=== PATIENT | male | born 1935 | race Caucasian/White ===

== ENCOUNTER 2017-03-01 17:50 | Inpatient (IN) | payer MEDICARE, BC ==
[2017-03-01] MEDS ORDERED: methylPREDNISolone SOD SUCCI 125 MG/2 ML VIAL IV STA (18:03)
[2017-03-01] MEDS ORDERED: ALBUTEROL NEBULIZED 2.5 MG/3 ML INHALATION STA (18:03)
[2017-03-01] MEDS ORDERED: IPRATROPIUM 0.5 MG/2.5 ML NEBU INHALATION STA (18:03)
--- NOTE | 2017-03-01 18:08 | ED ---
General Adult HPI - General Chief complaint: Shortness of Breath Stated complaint: chest pain, [place], has pacemaker Time Seen by Provider: 03/01/17 17:56 Source: patient, family, RN notes reviewed, old records reviewed Mode of arrival: wheelchair Limitations: no limitations - History of Present Illness Initial comments: 81-year-old male presents for evaluation of difficulty breathing. Patient states this began earlier in the day. He has had a cough which is productive of white sputum. Denies fever. Patient had an episode of central chest pain and tightness. This is resolved at this time. He has persistent coughing and dyspnea. Patient does have history of tobacco use, states he quit about 29 years ago. He has diagnosis of COPD, and was recently treated for pneumonia. Patient was admitted at an outside hospital for treatment of COPD and pneumonia approximately 2 weeks ago. - Related Data Home Medications Medication Instructions Recorded Confirmed Albuterol Nebulized [Ventolin 2.5 mg INHALATION RT-QID PRN 03/01/17 03/01/17 Nebulized] Albuterol Sulfate [Proair Hfa] 2 puff INHALATION RT-Q4H PRN 03/01/17 03/01/17 Aspirin EC [Ecotrin] 325 mg PO W/SUPPER 03/01/17 03/01/17 Dorzolamide HCl [Trusopt 2%] 1 drop BOTH EYES BID 03/01/17 03/01/17 Labetalol [Trandate] 50 mg PO DAILY@1200 03/01/17 03/01/17 Labetalol [Trandate] 100 mg PO QAM 03/01/17 03/01/17 Latanoprost Ophth [Xalatan 0.005%] 1 drop BOTH EYES HS 03/01/17 03/01/17 Losartan [Cozaar] 50 mg PO DAILY 03/01/17 03/01/17 Multivitamins, Thera [Multivitamin 1 tab PO DAILY 03/01/17 03/01/17 (formulary)] Pravastatin Sodium 80 mg PO TUWETH 03/01/17 03/01/17 Vit C/E/Zn/Coppr/Lutein/Zeaxan 1 cap PO BID 03/01/17 03/01/17 [Preservision Areds 2 Softgel] amLODIPine [Norvasc] 5 mg PO BID 03/01/17 03/01/17 Allergies Allergy/AdvReac Type Severity Reaction Status Date / Time ezetimibe [From Vytorin] Allergy Swelling Verified 03/01/17 18:52 lisinopril Allergy Swelling Verified 03/01/17 18:52 simvastatin [From Vytorin] Allergy Swelling Verified 03/01/17 18:52 Review of Systems ROS Statement: Those systems with pertinent positive or pertinent negative responses have been documented in the HPI. ROS Other: All systems not noted in ROS Statement are negative. Past Medical History Past Medical History: Asthma, Hyperlipidemia, Hypertension History of Any Multi-Drug Resistant Organisms: None Reported Past Surgical History: Pacemaker Additional Past Surgical History / Comment(s): lobectomy on right side, prostate removed Past Psychological History: No Psychological Hx Reported Smoking Status: Former smoker Past Alcohol Use History: None Reported Past Drug Use History: None Reported General Exam Limitations: no limitations General appearance: alert, in distress Head exam: Present: atraumatic, normocephalic Eye exam: Present: normal appearance, PERRL. Absent: scleral icterus, conjunctival injection ENT exam: Present: mucous membranes dry Respiratory exam: Present: respiratory distress, wheezes, accessory muscle use, decreased breath sounds, prolonged expiratory Cardiovascular Exam: Present: normal rhythm, tachycardia GI/Abdominal exam: Present: soft. Absent: distended, tenderness Extremities exam: Present: normal capillary refill. Absent: pedal edema Neurological exam: Present: alert, oriented X3 Psychiatric exam: Present: normal affect, normal mood Skin exam: Present: warm, dry, intact. Absent: cyanosis, diaphoretic Course Vital Signs 03/01/17 03/01/17 03/01/17 17:59 18:06 18:13 Temperature 98.2 F Pulse Rate 107 H 96 Respiratory 30 H 30 H 30 H Rate Blood Pressure 164/82 O2 Sat by Pulse 94 L Oximetry 03/01/17 03/01/17 03/01/17 18:55 19:04 19:58 Temperature 98.3 F Pulse Rate 95 98 92 Respiratory 25 H 18 20 Rate Blood Pressure 158/84 156/82 O2 Sat by Pulse 98 97 Oximetry - Reevaluation(s) Reevaluation #1: 03/01/17 20:29 Patient's respiratory status does improve with albuterol, Atrovent, and steroids. EKG Findings - EKG Comments: EKG Findings:: EKG shows electronic ventricular paced rhythm, ventricular rate 99, LA interval 232, QRS 168, QTC [address] segment elevation in V4, 5 and 6, this does not meet [place] criteria. Medical Decision Making - Medical Decision Making 81-year-old male presenting with cough and dyspnea. Auscultation does reveal decreased breath sounds, Very wheeze, there is retractions on examination. White blood cell count is 6.0 which is normal, hemoglobin is 13.5 which is stable. D-dimer is elevated at 0.67. PCO2 is elevated at 59 consistent with hypercarbic respiratory failure. Troponin is negative. Lactic acid is normal at 0.8. Chest x-ray shows no focal pneumonia. 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 EKG shows a ventricular paced rhythm. Patient has no chest pain wall emergency department. Initial troponin is negative. Repeat enzymes will be obtained given the history of chest pain earlier in the day. Patient's symptoms do somewhat improved with albuterol, Atrovent, and steroids. Patient will be admitted for further treatment of COPD exacerbation with hypercarbic respiratory failure - Lab Data Result diagrams: 03/01/17 18:05 03/01/17 18:05 Lab Results 03/01/17 03/01/17 03/01/17 Range/Units 18:05 18:05 18:05 WBC 6.1 (3.8-10.6) k/uL RBC 4.55 (4.30-5.90) m/uL Hgb 13.5 (13.0-17.5) gm/dL Hct 43.7 (39.0-53.0) % MCV 96.1 (80.0-100.0) fL MCH 29.7 (25.0-35.0) pg MCHC 30.9 L (31.0-37.0) g/dL RDW 15.2 (11.5-15.5) % Plt Count 332 (150-450) k/uL Neutrophils % 41 % Lymphocytes % 31 % Monocytes % 9 % Eosinophils % 14 % Basophils % 1 % Neutrophils # 2.5 (1.3-7.7) k/uL Lymphocytes # 1.9 (1.0-4.8) k/uL Monocytes # 0.6 (0-1.0) k/uL Eosinophils # 0.9 H (0-0.7) k/uL Basophils # 0.1 (0-0.2) k/uL PT (9.0-12.0) sec INR (<1.2) APTT (22.0-30.0) sec D-Dimer (<0.60) mg/L FEU VBG pH 7.31 (7.31-7.41) VBG pCO2 59 H (37-51) mmHg VBG HCO3 29 H (24-28) mmol/L Sodium (137-145) mmol/L Potassium (3.5-5.1) mmol/L Chloride (98-107) mmol/L Carbon Dioxide (22-30) mmol/L Anion Gap mmol/L BUN (9-20) mg/dL Creatinine (0.66-1.25) mg/dL Est GFR (MDRD) Af Amer (>60 ml/min/1.73 sqM) Est GFR (MDRD) Non-Af (>60 ml/min/1.73 sqM) Glucose (74-99) mg/dL Plasma Lactic Acid Gary (0.7-2.0) mmol/L Calcium (8.4-10.2) mg/dL Magnesium (1.6-2.3) mg/dL Total Bilirubin (0.2-1.3) mg/dL AST (17-59) U/L ALT (21-72) U/L Alkaline Phosphatase (38-126) U/L Total Creatine Kinase 78 (55-170) U/L CK-MB (CK-2) 4.1 H* (0.0-2.4) ng/mL CK-MB (CK-2) Rel Index 5.3 Troponin I <0.012 (0.000-0.034) ng/mL NT-Pro-B Natriuret Pep pg/mL Total Protein (6.3-8.2) g/dL Albumin (3.5-5.0) g/dL 03/01/17 03/01/17 03/01/17 Range/Units 18:05 18:05 18:05 WBC (3.8-10.6) k/uL RBC (4.30-5.90) m/uL Hgb (13.0-17.5) gm/dL Hct (39.0-53.0) % MCV (80.0-100.0) fL MCH (25.0-35.0) pg MCHC (31.0-37.0) g/dL RDW (11.5-15.5) % Plt Count (150-450) k/uL Neutrophils % % Lymphocytes % % Monocytes % % Eosinophils % % Basophils % % Neutrophils # (1.3-7.7) k/uL Lymphocytes # (1.0-4.8) k/uL Monocytes # (0-1.0) k/uL Eosinophils # (0-0.7) k/uL Basophils # (0-0.2) k/uL PT 10.2 (9.0-12.0) sec INR 1.0 (<1.2) APTT 23.4 (22.0-30.0) sec D-Dimer 0.67 H (<0.60) mg/L FEU VBG pH (7.31-7.41) VBG pCO2 (37-51) mmHg VBG HCO3 (24-28) mmol/L Sodium 139 (137-145) mmol/L Potassium 4.4 (3.5-5.1) mmol/L Chloride 103 (98-107) mmol/L Carbon Dioxide 27 (22-30) mmol/L Anion Gap 9 mmol/L BUN 24 H (9-20) mg/dL Creatinine 0.90 (0.66-1.25) mg/dL Est GFR (MDRD) Af Amer >60 (>60 ml/min/1.73 sqM) Est GFR (MDRD) Non-Af >60 (>60 ml/min/1.73 sqM) Glucose 91 (74-99) mg/dL Plasma Lactic Acid Gary (0.7-2.0) mmol/L Calcium 9.4 (8.4-10.2) mg/dL Magnesium 2.1 (1.6-2.3) mg/dL Total Bilirubin 0.3 (0.2-1.3) mg/dL AST 24 (17-59) U/L ALT 41 (21-72) U/L Alkaline Phosphatase 95 (38-126) U/L Total Creatine Kinase (55-170) U/L CK-MB (CK-2) (0.0-2.4) ng/mL CK-MB (CK-2) Rel Index Troponin I (0.000-0.034) ng/mL NT-Pro-B Natriuret Pep 324 pg/mL Total Protein 6.5 (6.3-8.2) g/dL Albumin 3.8 (3.5-5.0) g/dL 03/01/17 Range/Units 18:05 WBC (3.8-10.6) k/uL RBC (4.30-5.90) m/uL Hgb (13.0-17.5) gm/dL Hct (39.0-53.0) % MCV (80.0-100.0) fL MCH (25.0-35.0) pg MCHC (31.0-37.0) g/dL RDW (11.5-15.5) % Plt Count (150-450) k/uL Neutrophils % % Lymphocytes % % Monocytes % % Eosinophils % % Basophils % % Neutrophils # (1.3-7.7) k/uL Lymphocytes # (1.0-4.8) k/uL Monocytes # (0-1.0) k/uL Eosinophils # (0-0.7) k/uL Basophils # (0-0.2) k/uL PT (9.0-12.0) sec INR (<1.2) APTT (22.0-30.0) sec D-Dimer (<0.60) mg/L FEU VBG pH (7.31-7.41) VBG pCO2 (37-51) mmHg VBG HCO3 (24-28) mmol/L Sodium (137-145) mmol/L Potassium (3.5-5.1) mmol/L Chloride (98-107) mmol/L Carbon Dioxide (22-30) mmol/L Anion Gap mmol/L BUN (9-20) mg/dL Creatinine (0.66-1.25) mg/dL Est GFR (MDRD) Af Amer (>60 ml/min/1.73 sqM) Est GFR (MDRD) Non-Af (>60 ml/min/1.73 sqM) Glucose (74-99) mg/dL Plasma Lactic Acid Gary 0.8 (0.7-2.0) mmol/L Calcium (8.4-10.2) mg/dL Magnesium (1.6-2.3) mg/dL Total Bilirubin (0.2-1.3) mg/dL AST (17-59) U/L ALT (21-72) U/L Alkaline Phosphatase (38-126) U/L Total Creatine Kinase (55-170) U/L CK-MB (CK-2) (0.0-2.4) ng/mL CK-MB (CK-2) Rel Index Troponin I (0.000-0.034) ng/mL NT-Pro-B Natriuret Pep pg/mL Total Protein (6.3-8.2) g/dL Albumin (3.5-5.0) g/dL Disposition Clinical Impression: Acute exacerbation of chronic obstructive airways disease Disposition: ADMITTED IP TO THIS HOSP Condition: Stable Referrals: Nikhil Alberts MD [Primary Care Provider] - 1-2 days Decision to Admit Reason: Admit from EC Decision Date: 03/01/17 Decision Time: 20:32
[2017-03-01 18:29] LABS: VBG PH 7.31 (7.31-7.41)
[2017-03-01 18:39] LABS: ALT 41 U/L (21-72); AST 24 U/L (17-59); Alkaline Phosphatase 95 U/L (38-126); Anion Gap 9 mmol/L; Blood Urea Nitrogen 24 mg/dL (9-20); Calcium 9.4 mg/dL (8.4-10.2); Carbon Dioxide 27 mmol/L (22-30); Chloride 103 mmol/L (98-107); Glucose 91 mg/dL (74-99); Magnesium 2.1 mg/dL (1.6-2.3); Non-African American GFR(MDRD) >60 (>60 ml/min/1.73 sqM); Potassium 4.4 mmol/L (3.5-5.1); Sodium 139 mmol/L (137-145); Total Bilirubin 0.3 mg/dL (0.2-1.3); Total Protein 6.5 g/dL (6.3-8.2)
[2017-03-01 18:45] LABS: Partial Thromboplastin Time 23.4 sec (22.0-30.0); Prothrombin Time 10.2 sec (9.0-12.0)
[2017-03-01 18:47] LABS: Basophils # (A) 0.1 k/uL (0-0.2); Basophils % (A) 1 %; CH 30.5; CHCM 31.9; Creatine Kinase 78 U/L (55-170); Eosinophils # (A) 0.9 k/uL (0-0.7); Eosinophils % (A) 14 %; HCT 43.7 % (39.0-53.0); HDW 2.36; HGB 13.5 gm/dL (13.0-17.5); Luc # (Auto) 0.25; Luc % (Auto) 4; Lymphocytes # (A) 1.9 k/uL (1.0-4.8); Lymphocytes % (A) 31 %; MCH 29.7 pg (25.0-35.0); MCHC 30.9 g/dL (31.0-37.0); MCV 96.1 fL (80.0-100.0); Mean Platelet Volume 6.6; Monocytes # (A) 0.6 k/uL (0-1.0); Monocytes % (A) 9 %; Neutrophils # (A) 2.5 k/uL (1.3-7.7); Neutrophils % (A) 41 %; RBC 4.55 m/uL (4.30-5.90); RDW 15.2 % (11.5-15.5); WBC 6.1 k/uL (3.8-10.6); WBC (Perox) 6.32
[2017-03-01 19:00] LABS: Troponin I <0.012 ng/mL (0.000-0.034)
[2017-03-01 19:01] LABS: Creatine Kinase MB 4.1 ng/mL (0.0-2.4)
[2017-03-01] MEDS ORDERED: RX INFO: IV CONTRAST WAS GIVEN 1 EACH MISC MISCELLANE PRN (19:15)
--- NOTE | 2017-03-01 19:16 | XR ---
EXAMINATION TYPE: XR chest 2V DATE OF EXAM: 03/01/2017 COMPARISON: 02/21/2017 HISTORY: Chest pain TECHNIQUE: Frontal and lateral views of the chest are obtained. FINDINGS: There is blunting of right costophrenic angle. Heart size is normal. Thoracic aorta is ath eromatous. There is left axillary pacemaker with the lead tips in the right ventricle. There are ches t leads. IMPRESSION: There is pleural reaction and fluid at the right lung base without change compared to la st exam. No heart failure.
--- NOTE | 2017-03-01 20:05 | CT ---
EXAMINATION TYPE: CT angio chest DATE OF EXAM: 03/01/2017 7:52 PM COMPARISON: NONE HISTORY: Shortness of breath and chest pressure. CT DLP: 286.70 mGycm Automated exposure control for dose reduction was used. CONTRAST: CTA scan of the thorax is performed with IV Contrast, patient injected with 78 mL of Omnipaque 350, p ulmonary embolism protocol. There are 3-D post processed images.. FINDINGS: There is coarse interstitial density in the mid and lower lung calle consistent with pulmonary fibro sis. Thoracic aorta is atheromatous. 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 There is no sign of dissection. There are large central pulmonary arteries. I see no filling defects. The bony thorax appears intact. There is spurring of the thoracic spine. There is mild pleural thickening at the right lung base. There is some pleural thickening at the righ t lung apex. IMPRESSION: NO EVIDENCE OF PULMONARY EMBOLISM. RIGHT-SIDED PLEURAL SCARRING. PULMONARY INTERSTITIAL FIBROSIS. PUL MONARY FIBROTIC CHANGES AND PLEURAL THICKENING ARE NEW COMPARED TO OLD CT SCAN OF 01/22/2012. AORTIC AN EURYSM IS INCREASED SLIGHTLY COMPARED TO OLD EXAM.
[2017-03-01] MEDS ORDERED: ACETAMINOPHEN TAB 325 MG TAB PO PRN (20:28)
[2017-03-01 21:24] VITALS: BMI 22.5
[2017-03-01] MEDS: IPRATROPIUM-ALBUTEROL 3 ML NEB INHALATION PRN (22:57)
[2017-03-01] MEDS: amLODIPine 5 MG TAB PO SCH (23:03)
[2017-03-02 00:39] LABS: Creatine Kinase 74 U/L (55-170)
[2017-03-02 00:53] LABS: Troponin I <0.012 ng/mL (0.000-0.034)
[2017-03-02 00:59] LABS: Creatine Kinase MB 3.4 ng/mL (0.0-2.4)
[2017-03-02] MEDS: IPRATROPIUM-ALBUTEROL 3 ML NEB INHALATION PRN ×5 (02:59→20:36)
[2017-03-02 06:54] LABS: Basophils % (A) 0 %; CH 30.5; CHCM 31.8; Eosinophils % (A) 0 %; HCT 43.3 % (39.0-53.0); HDW 2.34; HGB 13.2 gm/dL (13.0-17.5); Luc # (Auto) 0.02; Luc % (Auto) 1; Lymphocytes # (A) 0.9 k/uL (1.0-4.8); Lymphocytes % (A) 19 %; MCH 29.5 pg (25.0-35.0); MCHC 30.6 g/dL (31.0-37.0); MCV 96.4 fL (80.0-100.0); Mean Platelet Volume 6.8; Monocytes # (A) 0.1 k/uL (0-1.0); Monocytes % (A) 1 %; Neutrophils # (A) 3.5 k/uL (1.3-7.7); Neutrophils % (A) 79 %; RBC 4.49 m/uL (4.30-5.90); RDW 15.1 % (11.5-15.5); WBC 4.5 k/uL (3.8-10.6); WBC (Perox) 4.59
[2017-03-02 07:09] LABS: ALT 33 U/L (21-72); AST 22 U/L (17-59); Alkaline Phosphatase 73 U/L (38-126); Anion Gap 10 mmol/L; Blood Urea Nitrogen 20 mg/dL (9-20); Carbon Dioxide 25 mmol/L (22-30); Chloride 100 mmol/L (98-107); Glucose 130 mg/dL (74-99); Non-African American GFR(MDRD) >60 (>60 ml/min/1.73 sqM); Potassium 4.2 mmol/L (3.5-5.1); Sodium 135 mmol/L (137-145); Total Bilirubin 0.4 mg/dL (0.2-1.3); Total Protein 6.2 g/dL (6.3-8.2)
[2017-03-02 07:19] LABS: Creatine Kinase 75 U/L (55-170)
[2017-03-02 07:32] LABS: Troponin I <0.012 ng/mL (0.000-0.034)
[2017-03-02 07:38] LABS: Creatine Kinase MB 3.8 ng/mL (0.0-2.4)
[2017-03-02] MEDS: amLODIPine 5 MG TAB PO SCH ×2 (08:53→21:44)
[2017-03-02] MEDS: LOSARTAN 50 MG TAB PO SCH (08:53)
[2017-03-02] MEDS ORDERED: LEVOFLOXACIN 500 MG TAB PO SCH (09:00)
[2017-03-02] MEDS: LABETALOL 100 MG TAB PO SCH (11:30)
[2017-03-02] MEDS: predniSONE 20 MG TAB PO SCH (11:30)
[2017-03-02] MEDS ORDERED: LABETALOL 100 MG TAB PO SCH (12:00)
--- NOTE | 2017-03-02 13:47 | P.HPIM ---
History of Present Illness 81-year-old pleasant gentleman came in with complaints of chest pressure-like sensation improved with breathing treatments and constant started when he was watching TV patient I was comparing of wheezing patient has history of asthma presently in acute exacerbation is wheezing improved patient is on systemic steroids at this point of time with inhalational treatments. Patient's chest pain completely resolved troponins are negative EKG showed completely pacer rhythm. Patient used to smoke 30 years ago patient does not have any pneumonia on the chest x-ray. Antibiotics are being switched to doxycycline. Patient denied any fever, chills, nausea, vomiting patient was complaining of whitish sputum barely able to bring up. Review of Systems REVIEW OF SYSTEMS: CONSTITUTIONAL: No fever, no malaise, no fatigue. HEENT: No recent visual problems or hearing problems. Denied any sore throat. CARDIOVASCULAR: No chest pain, orthopnea, PND, no palpitations, no syncope. PULMONARY: as mentioned in HPI GASTROINTESTINAL: No diarrhea, no nausea, no vomiting, no abdominal pain. Normoactive bowel sounds. NEUROLOGICAL: No headaches, no weakness, no numbness. HEMATOLOGICAL: Denies any bleeding or petechiae. GENITOURINARY: Denies any burning micturition, frequency, or urgency. MUSCULOSKELETAL/RHEUMATOLOGICAL: Denies any joint pain, swelling, or any muscle pain. ENDOCRINE: Denies any polyuria or polydipsia. The rest of the 14-point review of systems is negative. Past Medical History Past Medical History: Asthma, COPD, Hyperlipidemia, Hypertension, Pneumonia History of Any Multi-Drug Resistant Organisms: None Reported Past Surgical History: Pacemaker Additional Past Surgical History / Comment(s): lobectomy on right side, prostate removed Past Anesthesia/Blood Transfusion Reactions: No Reported Reaction Type of Cardiac Device: Permanent Pacemaker Device Placement Date:: Jul 18 2011 Past Psychological History: No Psychological Hx Reported Smoking Status: Former smoker Past Alcohol Use History: None Reported Past Drug Use History: None Reported Medications and Allergies Home Medications Medication Instructions Recorded Confirmed Type Albuterol Nebulized [Ventolin 2.5 mg INHALATION RT-QID PRN 03/01/17 03/01/17 History Nebulized] Albuterol Sulfate [Proair Hfa] 2 puff INHALATION RT-Q4H PRN 03/01/17 03/01/17 History Aspirin EC [Ecotrin] 325 mg PO W/SUPPER 03/01/17 03/01/17 History Dorzolamide HCl [Trusopt 2%] 1 drop BOTH EYES BID 03/01/17 03/01/17 History Labetalol [Trandate] 50 mg PO DAILY@1200 03/01/17 03/01/17 History Labetalol [Trandate] 100 mg PO QAM 03/01/17 03/01/17 History Latanoprost Ophth [Xalatan 0.005%] 1 drop BOTH EYES HS 03/01/17 03/01/17 History Losartan [Cozaar] 50 mg PO DAILY 03/01/17 03/01/17 History Multivitamins, Thera [Multivitamin 1 tab PO DAILY 03/01/17 03/01/17 History (formulary)] Pravastatin Sodium 80 mg PO 03/01/17 03/01/17 History Vit C/E/Zn/Coppr/Lutein/Zeaxan 1 cap PO BID 03/01/17 03/01/17 History [Preservision Areds 2 Softgel] amLODIPine [Norvasc] 5 mg PO BID 03/01/17 03/01/17 History Allergies Allergy/AdvReac Type Severity Reaction Status Date / Time ezetimibe [From Vytorin] Allergy Swelling Verified 03/01/17 18:52 lisinopril Allergy Swelling Verified 03/01/17 18:52 simvastatin [From Vytorin] Allergy Swelling Verified 03/01/17 18:52 Physical Exam Vitals: Vital Signs Temp Pulse Pulse Resp BP BP Pulse Ox 03/02/17 12:09 112 H 03/02/17 11:48 100 03/02/17 11:29 98 18 115/60 97 03/02/17 08:40 100 03/02/17 08:29 96 03/02/17 08:00 97.1 F L 104 H 18 118/69 97 03/02/17 04:00 97.9 F 104 H 20 138/69 94 L 03/02/17 03:08 108 H 03/02/17 03:00 102 H 03/02/17 00:00 96 20 132/69 96 03/01/17 23:06 96 03/01/17 22:59 96 03/01/17 20:54 98.4 F 92 20 145/84 95 03/01/17 20:50 98.3 F 94 20 158/81 96 03/01/17 19:58 98.3 F 92 20 156/82 97 03/01/17 19:04 98 18 158/84 98 03/01/17 18:55 95 25 H 03/01/17 18:13 96 30 H 03/01/17 18:06 30 H 03/01/17 17:59 98.2 F 107 H 30 H 164/82 94 L Intake and Output 03/01/17 03/02/17 03/02/17 22:59 06:59 14:59 Intake Total 100 100 240 Output Total 700 400 Balance -600 -300 240 Intake: Oral 100 100 240 Output: Urine 700 400 Other: Voiding Method Urinal Urinal # Voids 1 1 # Bowel Movements 1 Weight 71.3 kg PHYSICAL EXAMINATION: GENERAL: The patient is alert and oriented x3, not in any acute distress. Well developed, well nourished. HEENT: Pupils are round and equally reacting to light. EOMI. No scleral icterus. No conjunctival pallor. Normocephalic, atraumatic. No pharyngeal erythema. No thyromegaly. CARDIOVASCULAR: S1 and S2 present. No murmurs, rubs, or gallops. PULMONARY: decreased air entry into bilateral lung calle, no crackles were appreciated ABDOMEN: Soft, nontender, nondistended, normoactive bowel sounds. No palpable organomegaly. MUSCULOSKELETAL: No joint swelling or deformity. EXTREMITIES: No cyanosis, clubbing, or pedal edema. NEUROLOGICAL: Gross neurological examination did not reveal any focal deficits. SKIN: No rashes. Results CBC & Chem 7: 03/02/17 06:25 03/02/17 06:25 Labs: Abnormal Lab Results - Last 24 Hours (Table) 03/01/17 03/01/17 03/01/17 Range/Units 18:05 18:05 18:05 MCHC 30.9 L (31.0-37.0) g/dL Lymphocytes # (1.0-4.8) k/uL Eosinophils # 0.9 H (0-0.7) k/uL D-Dimer (<0.60) mg/L FEU VBG pCO2 59 H (37-51) mmHg VBG HCO3 29 H (24-28) mmol/L Sodium (137-145) mmol/L BUN (9-20) mg/dL Glucose (74-99) mg/dL CK-MB (CK-2) 4.1 H* (0.0-2.4) ng/mL Total Protein (6.3-8.2) g/dL 03/01/17 03/01/17 03/02/17 Range/Units 18:05 18:05 00:06 MCHC (31.0-37.0) g/dL Lymphocytes # (1.0-4.8) k/uL Eosinophils # (0-0.7) k/uL D-Dimer 0.67 H (<0.60) mg/L FEU VBG pCO2 (37-51) mmHg VBG HCO3 (24-28) mmol/L Sodium (137-145) mmol/L BUN 24 H (9-20) mg/dL Glucose (74-99) mg/dL CK-MB (CK-2) 3.4 H* (0.0-2.4) ng/mL Total Protein (6.3-8.2) g/dL 03/02/17 03/02/17 03/02/17 Range/Units 06:25 06:25 06:25 MCHC 30.6 L (31.0-37.0) g/dL Lymphocytes # 0.9 L (1.0-4.8) k/uL Eosinophils # (0-0.7) k/uL D-Dimer (<0.60) mg/L FEU VBG pCO2 (37-51) mmHg VBG HCO3 (24-28) mmol/L Sodium 135 L (137-145) mmol/L BUN (9-20) mg/dL Glucose 130 H (74-99) mg/dL CK-MB (CK-2) 3.8 H* (0.0-2.4) ng/mL Total Protein 6.2 L (6.3-8.2) g/dL Thrombosis Risk Factor Assmnt - Choose All That Apply Any of the Below Risk Factors Present?: Yes Each Factor Represents 1 point: Abnormal pulmonary function (COPD), Serious lung disease incl. pneumonia (< 1month) Other Risk Factors: Yes Each Risk Factor Represents 3 Points: Age 75 years or older Other congenital or acquired thrombophilia - If yes, enter type in comment: No Thrombosis Risk Factor Assessment Total Risk Factor Score: 5 Thrombosis Risk Factor Assessment Level: High Risk Assessment and Plan Plan: #1 acute hypoxic respiratory failure secondary to asthma exacerbation patient is on systemic steroids inhalational treatments which will be continued patient has ALLERGIC bronchitis. #2 rule out pulmonary embolism. #3 chest pain and chest pressure like sensation which resolved secondary to bronchoconstriction and asthma hyperlipidemia Hypertension For above-mentioned chronic medical problems patient will be continued on appropriate home medications
[2017-03-02] MEDS: guaiFENesin-DM 100-10MG/5ML 10 ML CUP PO PRN (17:07)
[2017-03-02] MEDS: BENZOCAINE/MENTHOL LOZENG 1 EACH LOZENGE MUCOUS MEM PRN (17:07)
[2017-03-02] MEDS ORDERED: ASPIRIN 325 MG TAB PO SCH (17:30)
[2017-03-02] MEDS: DOXYCYCLINE 50 MG CAP PO SCH (21:44)
[2017-03-03] MEDS: guaiFENesin-DM 100-10MG/5ML 10 ML CUP PO PRN ×2 (00:08→10:59)
[2017-03-03] MEDS: BENZOCAINE/MENTHOL LOZENG 1 EACH LOZENGE MUCOUS MEM PRN ×2 (00:08→10:59)
[2017-03-03] MEDS: IPRATROPIUM-ALBUTEROL 3 ML NEB INHALATION PRN ×3 (00:19→08:23)
[2017-03-03 07:47] VITALS: BP 136/77; RESP 20; TEMP 96.9
[2017-03-03] MEDS: amLODIPine 5 MG TAB PO SCH (08:00)
[2017-03-03] MEDS: LOSARTAN 50 MG TAB PO SCH (08:01)
[2017-03-03] MEDS: DOXYCYCLINE 50 MG CAP PO SCH (08:01)
[2017-03-03] MEDS: predniSONE 20 MG TAB PO SCH (08:01)
[2017-03-03] MEDS: LABETALOL 100 MG TAB PO SCH (08:01)
[2017-03-03 08:50] VITALS: PULSE 96
--- NOTE | 2017-03-03 15:20 | P.DS ---
Providers Date of admission: 03/01/17 20:22 Attending physician: Oscar Riley Consults: 03/02/17 12:29 Consult Physician Routine Consulting Provider: Ashlee Navarro Consult Reason/Comments: asthma exacerbation Do you want consulting provider notified?: Yes Primary care physician: Nikhil Alberts [facility] Course: 72-year-old admitted for asthma exacerbation patient is otherwise clinically doing well and will ablate in the hallway patient is saturations are vitals are stable patient will be discharged on tapering doses of steroids follow-up with the pulmonary and primary care patient is an outpatient. PHYSICAL EXAMINATION: GENERAL: The patient is alert and oriented x3, not in any acute distress. Well developed, well nourished. HEENT: Pupils are round and equally reacting to light. EOMI. No scleral icterus. No conjunctival pallor. Normocephalic, atraumatic. No pharyngeal erythema. No thyromegaly. CARDIOVASCULAR: S1 and S2 present. No murmurs, rubs, or gallops. PULMONARY: Chest is clear to auscultation, no wheezing or crackles. ABDOMEN: Soft, nontender, nondistended, normoactive bowel sounds. No palpable organomegaly. MUSCULOSKELETAL: No joint swelling or deformity. EXTREMITIES: No cyanosis, clubbing, or pedal edema. NEUROLOGICAL: Gross neurological examination did not reveal any focal deficits. SKIN: No rashes. #1 acute hypoxic respiratory failure secondary to asthma exacerbation patient is on systemic steroids inhalational treatments which will be continued patient has ALLERGIC bronchitis. #2 rule out pulmonary embolism. #3 chest pain and chest pressure like sensation which resolved secondary to bronchoconstriction and asthma hyperlipidemia Hypertension Patient Condition at Discharge: Stable Plan - Discharge Summary New Discharge Prescriptions: New Doxycycline Monohydrate [Monodox] 100 mg PO Q12HR #10 cap predniSONE 10 mg PO DAILY #30 tab Albuterol Nebulized [Ventolin Nebulized] 2.5 mg INHALATION Q6H #20 nebu Continue Vit C/E/Zn/Coppr/Lutein/Zeaxan [Preservision Areds 2 Softgel] 1 cap PO BID Multivitamins, Thera [Multivitamin (formulary)] 1 tab PO DAILY Aspirin EC [Ecotrin] 325 mg PO W/SUPPER Latanoprost Ophth [Xalatan 0.005%] 1 drop BOTH EYES HS Dorzolamide HCl [Trusopt 2%] 1 drop BOTH EYES BID Albuterol Sulfate [Proair Hfa] 2 puff INHALATION RT-Q4H PRN PRN Reason: Shortness Of Breath Pravastatin Sodium 80 mg PO WE Labetalol [Trandate] 50 mg PO DAILY@1200 Losartan [Cozaar] 50 mg PO DAILY Labetalol [Trandate] 100 mg PO QAM Albuterol Nebulized [Ventolin Nebulized] 2.5 mg INHALATION RT-QID PRN PRN Reason: Shortness Of Breath Changed amLODIPine [Norvasc] 2.5 mg PO DAILY #0 Discharge Medication List Albuterol Nebulized [Ventolin Nebulized] 2.5 mg INHALATION RT-QID PRN 03/01/17 [ History] Albuterol Sulfate [Proair Hfa] 2 puff INHALATION RT-Q4H PRN 03/01/17 [History] Aspirin EC [Ecotrin] 325 mg PO W/SUPPER 03/01/17 [History] Dorzolamide HCl [Trusopt 2%] 1 drop BOTH EYES BID 03/01/17 [History] Labetalol [Trandate] 50 mg PO DAILY@1200 03/01/17 [History] Labetalol [Trandate] 100 mg PO QAM 03/01/17 [History] Latanoprost Ophth [Xalatan 0.005%] 1 drop BOTH EYES HS 03/01/17 [History] Losartan [Cozaar] 50 mg PO DAILY 03/01/17 [History] Multivitamins, Thera [Multivitamin (formulary)] 1 tab PO DAILY 03/01/17 [History ] Pravastatin Sodium 80 mg PO TUWETH 03/01/17 [History] Vit C/E/Zn/Coppr/Lutein/Zeaxan [Preservision Areds 2 Softgel] 1 cap PO BID 03/01 [History] Albuterol Nebulized [Ventolin Nebulized] 2.5 mg INHALATION Q6H #20 nebu [Rx] Doxycycline Monohydrate [Monodox] 100 mg PO Q12HR #10 cap 03/03/17 [Rx] amLODIPine [Norvasc] 2.5 mg PO DAILY #0 03/03/17 [Rx] predniSONE 10 mg PO DAILY #30 tab 03/03/17 [Rx] Follow up Appointment(s)/Referral(s): Nikhil Alberts MD [Primary Care Provider] - 3 Days Patient Instructions/Handouts: Asthma (DC), COPD (Chronic Obstructive Pulmonary Disease) (DC) Discharge Disposition: HOME SELF-CARE
--- NOTE | 2017-03-03 16:27 | P.CNPUL ---
History of Present Illness Consult date: 03/03/17 Reason for consult: dyspnea, COPD History of present illness: 81-year-old male patient with known history of COPD and previous history of lung cancer status post robotic left lower lobe resection, who presented to hospital because of increased chest congestion, chest pain, difficulty in breathing along with bronchospasm wheezing. The patient was diagnosed having an acute COPD exacerbation. A CT angios the chest was done that showed no evidence of any pulmonary embolism. Postsurgical changes were seen in the right lower lobe along with some volume loss and elevation of the right hemidiaphragm. The patient was subjected to a combination of DuoNeb nebulized treatments around the clock and systemic steroids. Cardiac enzymes were negative. He is an ex-smoker and he carries more than [id number] smoking history and he quit smoking more than 30 years ago. Currently is ambulating. No chest pain. No nausea vomiting pain no fever or chills. Hemodynamic is stable. White cell count is not elevated. Review of Systems Constitutional: Reports fatigue Eyes: denies blurred vision, denies bulging eye, denies decreased vision Ears: deny: decreased hearing, ear discharge, earache Ears, nose, mouth and throat: Denies headache, Denies sore throat Cardiovascular: Reports decreased exercise tolerance, Reports dyspnea on exertion, Reports shortness of breath Respiratory: Reports cough, Reports dyspnea Gastrointestinal: Denies abdominal pain, Denies diarrhea, Denies nausea, Denies vomiting Musculoskeletal: Denies myalgias Musculoskeletal: absent: ankle pain, ankle stiffness, ankle swelling Integumentary: Denies pruritus, Denies rash Neurological: Denies numbness, Denies weakness Psychiatric: Denies anxiety, Denies depression Endocrine: Denies fatigue, Denies weight change Past Medical History Past Medical History: Asthma, COPD, Hyperlipidemia, Hypertension, Pneumonia Additional Past Medical History / Comment(s): COPD, non-small cell lung cancer with a previous right lower lobe resection, prostate cancer with a previous prostatectomy, hyperlipidemia, hypertension, history of pacemaker insertion, hyperlipidemia, glaucoma History of Any Multi-Drug Resistant Organisms: None Reported Past Surgical History: Pacemaker Additional Past Surgical History / Comment(s): Right lower lobe resection, prostatectomy Past Anesthesia/Blood Transfusion Reactions: No Reported Reaction Type of Cardiac Device: Permanent Pacemaker Device Placement Date:: Jul 18 2011 Past Psychological History: No Psychological Hx Reported Smoking Status: Former smoker Past Alcohol Use History: None Reported Past Drug Use History: None Reported Medications and Allergies Home Medications Medication Instructions Recorded Confirmed Type Albuterol Nebulized [Ventolin 2.5 mg INHALATION RT-QID PRN 03/01/17 03/01/17 History Nebulized] Albuterol Sulfate [Proair Hfa] 2 puff INHALATION RT-Q4H PRN 03/01/17 03/01/17 History Aspirin EC [Ecotrin] 325 mg PO W/SUPPER 03/01/17 03/01/17 History Dorzolamide HCl [Trusopt 2%] 1 drop BOTH EYES BID 03/01/17 03/01/17 History Labetalol [Trandate] 50 mg PO DAILY@1200 03/01/17 03/01/17 History Labetalol [Trandate] 100 mg PO QAM 03/01/17 03/01/17 History Latanoprost Ophth [Xalatan 0.005%] 1 drop BOTH EYES HS 03/01/17 03/01/17 History Losartan [Cozaar] 50 mg PO DAILY 03/01/17 03/01/17 History Multivitamins, Thera [Multivitamin 1 tab PO DAILY 03/01/17 03/01/17 History (formulary)] Pravastatin Sodium 80 mg PO TUWETH 03/01/17 03/01/17 History Vit C/E/Zn/Coppr/Lutein/Zeaxan 1 cap PO BID 03/01/17 03/01/17 History [Preservision Areds 2 Softgel] Albuterol Nebulized [Ventolin 2.5 mg INHALATION Q6H #20 nebu 03/03/17 Rx Nebulized] Doxycycline Monohydrate [Monodox] 100 mg PO Q12HR #10 cap 03/03/17 Rx amLODIPine [Norvasc] 2.5 mg PO DAILY #0 03/03/17 03/01/17 Rx predniSONE 10 mg PO DAILY #30 tab 03/03/17 Rx Allergies Allergy/AdvReac Type Severity Reaction Status Date / Time ezetimibe [From Vytorin] Allergy Swelling Verified 03/01/17 18:52 lisinopril Allergy Swelling Verified 03/01/17 18:52 simvastatin [From Vytorin] Allergy Swelling Verified 03/01/17 18:52 Physical Exam Vitals: Vital Signs Temp Pulse Pulse Resp BP Pulse Ox 03/03/17 08:33 96 03/03/17 08:23 92 03/03/17 07:00 96.9 F L 81 20 136/77 99 03/03/17 04:15 94 03/03/17 00:31 96 03/03/17 00:19 94 03/02/17 23:00 96.5 F L 84 15 120/58 98 03/02/17 20:54 98 03/02/17 20:46 99 03/02/17 20:37 100 03/02/17 16:40 96.5 F L 100 20 131/71 97 Intake and Output 03/03/17 03/03/17 03/03/17 06:59 14:59 22:59 Other: # Voids 1 Head exam was generally normal. There was no scleral icterus or corneal arcus. Mucous membranes were moist.Neck was supple and without jugular venous distension, thyromegaly, or carotid bruits. Carotids were easily palpable bilaterally. There was no adenopathy. Lung sounds are diminished and there is scattered expiratory wheezes throughout the lung his bilaterally.Cardiac exam revealed the PMI to be normally situated and sized. The rhythm was regular and no extrasystoles were noted during several minutes of auscultation. The first and second heart sounds were normal and physiologic splitting of the second heart sound was noted. There were no murmurs, rubs, clicks, or gallops.Abdominal exam revealed normal bowel sounds. The abdomen was soft, non- tender, and without masses, organomegaly, or appreciable enlargement of the abdominal aorta.Examination of the extremities revealed easily palpable radial, femoral and pedal pulses. There was no cyanosis, clubbing or edema. Neurologically the patient is awake and alert and there is no focal neurological deficit.Examination of the skin revealed no evidence of significant rashes, suspicious appearing nevi or other concerning lesions. Results - Laboratory Findings CBC and BMP: 03/02/17 06:25 03/02/17 06:25 PT/INR, D-dimer PT 10.2 sec (9.0-12.0) 03/01/17 18:05 INR 1.0 (<1.2) 03/01/17 18:05 D-Dimer 0.67 mg/L FEU (<0.60) H 03/01/17 18:05 Abnormal lab findings: Abnormal Labs 03/01/17 03/01/17 03/01/17 18:05 18:05 18:05 MCHC 30.9 L Lymphocytes # Eosinophils # 0.9 H D-Dimer VBG pCO2 59 H VBG HCO3 29 H Sodium BUN Glucose CK-MB (CK-2) 4.1 H* Total Protein 03/01/17 03/01/17 03/02/17 18:05 18:05 00:06 MCHC Lymphocytes # Eosinophils # D-Dimer 0.67 H VBG pCO2 VBG HCO3 Sodium BUN 24 H Glucose CK-MB (CK-2) 3.4 H* Total Protein 03/02/17 03/02/17 03/02/17 06:25 06:25 06:25 MCHC 30.6 L Lymphocytes # 0.9 L Eosinophils # D-Dimer VBG pCO2 VBG HCO3 Sodium 135 L BUN Glucose 130 H CK-MB (CK-2) 3.8 H* Total Protein 6.2 L - Diagnostic Findings CT scan - chest: image reviewed Assessment and Plan Plan: Assessment 1 acute COPD exacerbation, improved and the patient shortness of breath improved considerably since admission day. CAT scan of the chest was reviewed and there is no evidence of any tumor recurrence or pneumonias or any other pulmonary complications. 2 non-small cell lung cancer previous right lower lobe resection 3 hypertension 4 hyperlipidemia 5 pacemaker insertion 6 history of prostate resection/robotic Plan Discharge this patient home to be followed up in our office. The patient was given albuterol solution his refills for his nebulizer to be used every 4-6 hours and a when necessary basis. He will be completing a course of doxycycline. Prednisone burst taper. We'll follow.
[2017-03-05] MEDS ORDERED: PRAVASTATIN SODIUM 80 MG TAB PO SCH (09:00)
== END 2017-03-03 14:50 | disposition home or self-care (01) | DRG 202 ==
LOC: EC 17:50 → 6SEL 20:22 → 4MS4W 03-02 16:21
PROVIDERS: ADMIT Internal Medicine; ATTEND Internal Medicine
DX: J45.901 Unspecified asthma with (acute) exacerbation (principal); J96.01 Acute respiratory failure with hypoxia; I26.99 Other pulmonary embolism without acute cor pulmonale; J44.1 Chronic obstructive pulmonary disease with (acute) exacerbation; I10 Essential (primary) hypertension; H40.9 Unspecified glaucoma; E78.5 Hyperlipidemia, unspecified; Z79.899 Other long term (current) drug therapy; Z85.118 Personal history of other malignant neoplasm of bronchus and lung; Z85.46 Personal history of malignant neoplasm of prostate; Z87.891 Personal history of nicotine dependence; Z90.79 Acquired absence of other genital organ(s); Z95.0 Presence of cardiac pacemaker; Z90.2 Acquired absence of lung [part of]; Z87.01 Personal history of pneumonia (recurrent); Z79.82 Long term (current) use of aspirin; Z88.8 Allergy status to other drugs, medicaments and biological substances
CPT/HCPCS: 36415; 71020; 71275; 80053; 82550; 82553; 82803; 83605; 83735; 83880; 84484; 85025; 85379; 85610; 85730; 87040; 93005; 94640; 94760; 96374; 99285

== ENCOUNTER → 2018-12-19 | Outpatient (CLI) | payer MEDICARE, BC ==
[2018-12-19 18:46] LABS: LDL Cholesterol,Calculated 80.2 mg/dL (0.0-131.0); VLDL Calculation 10.8 mg/dL (5.00-40.00)
== END | disposition home or self-care (01) ==
LOC: LABWHC1 10:24
PROVIDERS: ATTEND Nurse Practitioner Adult Health
DX: E78.2 Mixed hyperlipidemia (principal)
CPT/HCPCS: 36415; 80061; 84450; 84460

== ENCOUNTER → 2019-01-20 | Outpatient (CLI) | payer MEDICARE, BC ==
--- NOTE | 2019-01-20 15:04 | XR ---
EXAMINATION TYPE: XR chest 2V DATE OF EXAM: 01/20/2019 COMPARISON: 04/01/2017 TECHNIQUE: PA and lateral views submitted. HISTORY: COPD, shortness of breath FINDINGS: Cardia megaly with bilateral infiltrate and pleural effusion noted and there is a interstitial patter n with hyperinflation. Atherosclerotic change aorta. Cardiac device noted. Diffuse osteopenia with ar thropathy of the shoulders. IMPRESSION: 1. Findings are most typical of CHF superimposed over a background of COPD. Correlate clinically to e xclude underlying pneumonia.
== END | disposition home or self-care (01) ==
LOC: RADXRMAIN 14:24
PROVIDERS: ATTEND Internal Medicine Pulmonary Disease
DX: J44.9 Chronic obstructive pulmonary disease, unspecified (principal); I50.9 Heart failure, unspecified; Z88.8 Allergy status to other drugs, medicaments and biological substances
CPT/HCPCS: 71046

== ENCOUNTER → 2019-04-01 | Day surgery (SDC) | payer MEDICARE, BC ==
[2019-03-31 08:38] VITALS: BMI 23.5
[~2019-04-01] MED LIST: ALBUTEROL NEBULIZED 2.5 MG/3 ML INHALATION PRN; BENZOCAINE SPRAY 1 CAN MUCOUS MEM ONE; BETAXOLOL HCL BOTH EYES SCH; DORZOLAMIDE HCL 2% DROPS 10 ML BTL BOTH EYES SCH; LABETALOL 100 MG TAB PO SCH; LATANOPROST 0.005% OPHTH DROPS 2.5 ML BTL BOTH EYES SCH; LOSARTAN 50 MG TAB PO SCH; MIDAZOLAM 2 MG/2 ML VIAL IVP ONE; MULTIVITAMINS, THERA 1 EACH TAB PO SCH; NON FORMULARY DRUG (Aspirin Ec 325 MG) PO SCH; NON FORMULARY DRUG (Tiotropium 18 Mcg/Puff 2 PUFF) INHALATION SCH; NON FORMULARY DRUG (Vit C/E/Zn/Coppr/Lutein/Zeaxan [Preservision Areds 2 Softgel] 1 CAP) PO SCH; PRAVASTATIN SODIUM 80 MG TAB PO SCH; SODIUM CHLORIDE 0.9% 1,000 ML IV SCH; SODIUM CHLORIDE 0.9% 500 ML 500 ML IV ONE; [UNRECOGNIZED DRUG - OTHER] PO SCH; amLODIPine 5 MG TAB PO SCH; fentaNYL (PF) 50 MCG/ML 2 ML AMP IVP ONE; fentaNYL (PF) 50 MCG/ML 2 ML AMP ONE
[2019-04-01 07:15] VITALS: TEMP 97.7
[2019-04-01 07:51] VITALS: RESP 16
--- NOTE | 2019-04-01 07:54 | EST ---
EXERCISE STRESS INDICATION: Evaluation of mitral valve. PROCEDURE: After explaining the procedure to the patient, its risks and complications, blood pressure, heart rate, O2 saturation was monitored. The throat was sprayed with Cetacaine. He received 2 mg intravenous Versed and 50 mcg intravenous fentanyl. The probe was introduced into the esophagus without difficulty, images were obtained. Following that, the probe was removed. There was no immediate complication. FINDINGS: Left atrial size is mildly dilated. Left atrial appendage is normal. The aortic valve is a tricuspid valve with normal appearance. The mitral valve revealed mild mitral and annulus calcification. Tricuspid valve is normal. A pulmonic valve is normal. Descending thoracic aorta revealed mild atherosclerotic changes. No pericardial effusion was noted. Contrast bubble study revealed no evidence of shunting across the interatrial septum with Valsalva maneuver. Doppler pulse wave and color Doppler obtained and revealed a moderate mitral with mild tricuspid and trace pulmonic regurgitation. There was no shunting by color Doppler study. CONCLUSION: 1. Mildly dilated left atrium with normal appearance left atrial appendage. 2. Mildly impaired left ventricular systolic function with global hypokinesis. 3. Mild mitral and annular calcification with moderate mitral regurgitation. 4. Mild tricuspid regurgitation and trace pulmonic regurgitation. 5. A wire was noted in the right atrium and right ventricle. 6. No shunting across the interatrial septum. 7. Mild atherosclerotic changes of the descending thoracic aorta. MMODL / IJN: [id number] /
[2019-04-01 11:17] VITALS: BP 123/71; PULSE 82
== END | disposition home or self-care (01) ==
LOC: CATHCVL 06:37
PROVIDERS: ATTEND Internal Medicine Interventional Cardiology
DX: I08.1 Rheumatic disorders of both mitral and tricuspid valves (principal); I70.0 Atherosclerosis of aorta; I42.9 Cardiomyopathy, unspecified; J44.9 Chronic obstructive pulmonary disease, unspecified; I10 Essential (primary) hypertension; E78.2 Mixed hyperlipidemia; Z87.891 Personal history of nicotine dependence; J18.9 Pneumonia, unspecified organism; Z95.0 Presence of cardiac pacemaker; Z82.49 Family history of ischemic heart disease and other diseases of the circulatory system; Z79.82 Long term (current) use of aspirin; Z79.51 Long term (current) use of inhaled steroids; Z79.899 Other long term (current) drug therapy; Z88.8 Allergy status to other drugs, medicaments and biological substances
CPT/HCPCS: 93312; 93320; 93325; J2250; J3010

== ENCOUNTER → 2019-05-26 | Outpatient (CLI) | payer MEDICARE, BC ==
--- NOTE | 2019-05-26 13:36 | XR ---
EXAMINATION TYPE: XR chest 2V DATE OF EXAM: 05/26/2019 COMPARISON: 01/20/2019 TECHNIQUE: PA and lateral views submitted. HISTORY: Cough and pneumonia FINDINGS: There is basilar subsegmental consolidation small bilateral effusions. Atherosclerotic change aorta. Degenerative change spine. Mild hyperinflation. Correlate for COPD. Diffuse osteopenia and arthropath y shoulders. Cardiac device seen. No overt failure. IMPRESSION: 1. Stable appearing tiny bilateral effusions and basilar atelectasis or infiltrate. Interstitium is s lightly improved suggestive of reduced venous congestion. Correlate clinically.
== END | disposition home or self-care (01) ==
LOC: RADXRMAIN 13:13
PROVIDERS: ATTEND Internal Medicine Pulmonary Disease
DX: J90 Pleural effusion, not elsewhere classified (principal)
CPT/HCPCS: 71046

== ENCOUNTER 2019-06-11 10:14 | Inpatient (IN) | payer MEDICARE, BC ==
--- NOTE | 2019-06-11 14:25 | P.HPIM ---
History of Present Illness this is a pleasant 84 years old male with past medical history of lung and prostate cancer, COPD, deep venous thrombosis, hyperlipidemia, hypertension, and small lung cancer status post right lower lobe resection, prostatectomy, history of pacemaker Originally patient was admitted electively [facility] for pulmonary embolism and from there he went to rehab before he was transferred to [facility] with a breathing difficulty. Patient was transferred from [facility], he was admitted there for over 3 days for possible pneumonia and COPD exacerbation and he was getting antibiotics, breathing treatments and steroids however he did not improve so decided to transfer him to [facility] for pulmonary evaluation and possible bronchoscopy as and his CAT scan of the chest to rule out PE which was negative shows right intra-abdominal secretions with 7 mm lesion noted in the right lower lobe bronchi Labs from [place] noted including sodium 1:30, potassium 4.6, creatinine 0.9, WBC 7.19, hemoglobin 10.8, platelets 262. Chest x-ray: Possible retrocardiac infiltrate per radiologist CT of the chest to rule out PE left pleural effusion, small 1 no pneumothorax soft tissue density inside the bronchi on the right lower lobe cannot exclude secretion or endo-bronchial lesion maximum diameter of 7 mm. Air bronchograms of the posterior portion of the left lung base committing airspace disease Review of Systems CONSTITUTIONAL: No fever, no malaise, no fatigue. HEENT: No recent visual problems or hearing problems. Denied any sore throat. CARDIOVASCULAR: No orthopnea, PND, no palpitations, no syncope. PULMONARY: No shortness of breath, no cough, no hemoptysis. GASTROINTESTINAL: No diarrhea, no nausea, no vomiting, no abdominal pain. Normoactive bowel sounds. NEUROLOGICAL: No headaches, no weakness, no numbness. HEMATOLOGICAL: Denies any bleeding or petechiae. GENITOURINARY: Denies any burning micturition, frequency, or urgency. MUSCULOSKELETAL/RHEUMATOLOGICAL: Denies any joint pain, swelling, or any muscle pain. ENDOCRINE: Denies any polyuria or polydipsia. Past Medical History Past Medical History: Asthma, Cancer, COPD, Deep Vein Thrombosis (DVT), Hyperlipidemia, Hypertension, Pneumonia Additional Past Medical History / Comment(s): non-small cell lung cancer with a previous right lower lobe resection, prostate cancer with a previous prostatectomy, history of pacemaker insertion, glaucoma History of Any Multi-Drug Resistant Organisms: None Reported Past Surgical History: Pacemaker Additional Past Surgical History / Comment(s): Right lower lobe resection, prostatectomy Past Anesthesia/Blood Transfusion Reactions: No Reported Reaction Type of Cardiac Device: Permanent Pacemaker Device Placement Date:: Jul 18 2011 Smoking Status: Former smoker - Past Family History Brother(s) Family Medical History: Cancer Additional Family Medical History / Comment(s): prostate Medications and Allergies Home Medications Medication Instructions Recorded Confirmed Type Albuterol Nebulized [Ventolin 2.5 mg INHALATION RT-QID PRN 03/01/17 04/01/19 History Nebulized] Albuterol Sulfate [Proair Hfa] 2 puff INHALATION RT-Q4H PRN 03/01/17 04/01/19 History Aspirin EC [Ecotrin] 325 mg PO W/SUPPER 03/01/17 04/01/19 History Dorzolamide HCl [Trusopt 2%] 1 drop BOTH EYES BID 03/01/17 04/01/19 History Labetalol [Trandate] 50 mg PO DAILY@1200 03/01/17 04/01/19 History Labetalol [Trandate] 100 mg PO QAM 03/01/17 04/01/19 History Latanoprost Ophth [Xalatan 0.005%] 1 drop BOTH EYES HS 03/01/17 04/01/19 History Losartan [Cozaar] 50 mg PO DAILY 03/01/17 04/01/19 History Multivitamins, Thera [Multivitamin 1 tab PO DAILY 03/01/17 04/01/19 History (formulary)] Pravastatin Sodium 80 mg PO TUWETH 03/01/17 04/01/19 History Vit C/E/Zn/Coppr/Lutein/Zeaxan 1 cap PO BID 03/01/17 04/01/19 History [Preservision Areds 2 Softgel] amLODIPine [Norvasc] 2.5 mg PO DAILY #0 03/03/17 04/01/19 Rx Betaxolol HCl [Betoptic S 0.5% 1 drop BOTH EYES BID 03/31/19 04/01/19 History Ophth Soln] Fluticasone/Vilanterol [Breo 1 inhalation PO Q24HR 03/31/19 04/01/19 History Ellipta 100-25 Mcg Inhaler] Tiotropium 18 Mcg/Puff [Spiriva] 2 puff INHALATION DAILY 03/31/19 04/01/19 History Allergies Allergy/AdvReac Type Severity Reaction Status Date / Time ezetimibe [From Vytorin] Allergy Swelling Verified 04/01/19 07:15 lisinopril Allergy Swelling Verified 04/01/19 07:15 prednisone Allergy swelling Verified 04/01/19 07:15 behind eyes simvastatin [From Vytorin] Allergy Swelling Verified 04/01/19 07:15 Physical Exam Vitals: Vital Signs Temp Pulse Resp BP Pulse Ox 06/11/19 13:30 97.1 F L 93 22 146/83 93 L Intake and Output 06/10/19 06/11/19 06/11/19 22:59 06:59 14:59 Other: Weight 73.21 kg GENERAL: The patient is alert and oriented x3, not in any acute distress. Well developed, well nourished. HEENT: Pupils are round and equally reacting to light. EOMI. No scleral icterus. No conjunctival pallor. Normocephalic, atraumatic. No pharyngeal erythema. No thyromegaly. CARDIOVASCULAR: S1 and S2 present. No murmurs, rubs, or gallops. -PULMONARY: Chest is clear to auscultation, harsh breath sounds bilaterally, scattered wheezing ABDOMEN: Soft, nontender, nondistended, normoactive bowel sounds. No palpable organomegaly. MUSCULOSKELETAL: No joint swelling or deformity. EXTREMITIES: No cyanosis, clubbing, or pedal edema. NEUROLOGICAL: Gross neurological examination did not reveal any focal deficits. SKIN: No rashes. No petechiae Assessment and Plan Assessment: Acute COPD exacerbation Possible pneumonia Hyponatremia Vitals looks stable., He is saturating 93% on room air. Non-small lung cancer status post right lower lobe resection History of prostate cancer status post prostatectomy pulmonary embolism on eliqius Hypertension Hyperlipidemia Deep venous thrombosis this is a pleasant 84 years old male who presents with pneumonia and COPD. Continue with antibiotics but start Levaquin. Continue with steroids, broncho- dilator and oxygen. Pulmonary consult. Labs and medication were reviewed.. Continue same treatment. Continue with s ymptomatic treatment. Resume home medication. Monitor lytes and vitals. DVT and GI prophylaxis. Further recommendations of the clinical course of the patient DVT prophylaxis: Eliquis GI Prophylaxis: Pepcid PT/OT: Pending Prognosis is guarded
[2019-06-11] MEDS: LEVOFLOXACIN 500MG-D5W PMX 500 MG in DEXTROSE/WATER 1 100ML.BAG IVPB SCH (15:52)
[2019-06-11] MEDS: FAMOTIDINE 20 MG/2 ML VIAL IV SCH (20:20)
[2019-06-11] MEDS: APIXABAN 5 MG TAB PO SCH (20:20)
[2019-06-11] MEDS ORDERED: guaiFENesin SYRUP 100MG/5ML 200 MG/10 ML CUP PO PRN (20:30)
[2019-06-11] MEDS: DORZOLAMIDE HCL 2% DROPS 10 ML BTL BOTH EYES SCH (21:09)
[2019-06-11] MEDS: LABETALOL 100 MG TAB PO SCH (21:09)
[2019-06-11] MEDS: TIMOLOL 0.5% OPHTH DROPS 5 ML BTL BOTH EYES SCH (21:10)
[2019-06-11] MEDS: LATANOPROST 0.005% OPHTH DROPS 2.5 ML BTL BOTH EYES SCH (21:10)
[2019-06-11] MEDS: MONTELUKAST 10 MG TAB PO SCH (21:10)
[2019-06-11] MEDS: IPRATROPIUM-ALBUTEROL 3 ML NEB INHALATION PRN (21:26)
[2019-06-12] MEDS: IPRATROPIUM-ALBUTEROL 3 ML NEB INHALATION PRN ×2 (02:00→23:05)
[2019-06-12] MEDS ORDERED: ALPRAZolam 0.25 MG TAB PO STA (02:48)
[2019-06-12 03:14] LABS: Glucose,Whole Blood 99 mg/dL (75-99)
[2019-06-12 03:30] LABS: ABG Base Excess -4.1 mmol/L; ABG HCO3 22 mmol/L (21-25); ABG PCO2 40 mmHg (35-45); ABG PH 7.34 (7.35-7.45); ABG PO2 69 mmHg (83-108); ABG TCO2 23 mmol/L (19-24); Allen Test Performed? Yes
--- NOTE | 2019-06-12 03:43 | XR ---
EXAMINATION TYPE: XR chest 1V portable DATE OF EXAM: 06/12/2019 COMPARISON: 05/26/2019 HISTORY: Pneumonia. Short of breath. TECHNIQUE: FINDINGS: Heart is enlarged. There is a left axillary pacemaker. There is moderate airspace infiltrat e in the left lower lobe and to a lesser extent the right lung base. There is mild pulmonary vascular congestion. Bony thorax appears intact. There is blunting of costophrenic angles. IMPRESSION: There is evidence of congestive heart failure. There is new left lower lobe pneumonia com pared to old exam. Pulmonary congestion increased compared to old exam. Increased left pleural effusi on compared to old exam.
[2019-06-12 04:00] LABS: Glucose,Whole Blood 111 mg/dL (75-99)
[2019-06-12] MEDS ORDERED: NALOXONE 0.4 MG/ML 1 ML VIAL IV PRN (04:05)
[2019-06-12 04:17] LABS: HCT 46.1 % (39.0-53.0); HGB 13.5 gm/dL (13.0-17.5); Hypochromasia Marked; MCH 27.7 pg (25.0-35.0); MCHC 29.2 g/dL (31.0-37.0); MCV 94.6 fL (80.0-100.0); Mean Platelet Volume 6.7; Platelet Count 343 k/uL (150-450); RBC 4.87 m/uL (4.30-5.90); RDW 15.5 % (11.5-15.5); WBC 14.3 k/uL (3.8-10.6)
[2019-06-12 04:22] LABS: ABG Base Excess -3.4 mmol/L; ABG HCO3 24 mmol/L (21-25); ABG Oxygen Saturation 99.4 % (94-97); ABG PCO2 54 mmHg (35-45); ABG PH 7.25 (7.35-7.45); ABG PO2 213 mmHg (83-108); ABG TCO2 25 mmol/L (19-24); Allen Test Performed? Yes
[2019-06-12 04:30] LABS: Albumin 3.5 g/dL (3.5-5.0); Calcium 8.3 mg/dL (8.4-10.2); Magnesium 2.2 mg/dL (1.6-2.3); Total Bilirubin 0.5 mg/dL (0.2-1.3); Total Protein 6.5 g/dL (6.3-8.2)
[2019-06-12 05:30] LABS: Potassium 6.2 mmol/L (3.5-5.1)
[2019-06-12] MEDS ORDERED: FUROSEMIDE 10 MG/ML 4 ML VIAL IV STA (06:10)
[2019-06-12 06:11] LABS: Appearance,Urine Clear (Clear); Bilirubin,Urine Negative (Negative); Blood,Urine Negative (Negative); Color,Urine Yellow; Glucose,Urine (UA) Negative (Negative); Ketones,Urine Negative (Negative); Leukocyte Esterase,Urine Negative (Negative); Nitrite,Urine Negative (Negative); PH, Urine 6.5 (5.0-8.0); Protein,Urine Negative (Negative); Specific Gravity,Urine 1.015 (1.001-1.035); Urobilinogen,Urine <2.0 mg/dL (<2.0)
[2019-06-12] MEDS ORDERED: DEXTROSE 10 % IN WATER 250 ML IV STA (06:11)
[2019-06-12] MEDS ORDERED: ALBUTEROL NEB (CONC) 2.5 MG/0.5 ML INHALATION ONE (06:29)
[2019-06-12] MEDS ORDERED: CALCIUM GLUCONATE 1 GM in SODIUM CHLORIDE 0.9% 100 ML IVPB ONE (06:30)
[2019-06-12] MEDS ORDERED: INSULIN REGULAR 100 UNIT/ML VIAL IV ONE (06:45)
[2019-06-12] MEDS ORDERED: TIOTROPIUM BROMIDE INHALATION SCH (07:00)
[2019-06-12] MEDS: IPRATROPIUM-ALBUTEROL 3 ML NEB INHALATION SCH ×4 (07:44→19:11)
[2019-06-12] MEDS ORDERED: LACTATED RINGERS 750 ML IV ONE (08:00)
[2019-06-12] MEDS ORDERED: SYMBICORT 80-4.5 MCG INHALER INHALATION SCH (08:00)
[2019-06-12] MEDS: FORMOTEROL FUMARATE 20 MCG/2 ML NEBU INHALATION SCH ×2 (08:26→19:11)
[2019-06-12] MEDS: BUDESONIDE 1 MG/2 ML NEBU INHALATION SCH ×2 (08:26→19:11)
[2019-06-12] MEDS: SPIRONOLACTONE 25 MG TAB PO SCH (08:28)
[2019-06-12] MEDS: LABETALOL 100 MG TAB PO SCH ×2 (08:28→21:07)
[2019-06-12] MEDS: LOSARTAN 50 MG TAB PO SCH (08:28)
[2019-06-12] MEDS: FAMOTIDINE 20 MG/2 ML VIAL IV SCH (08:40)
[2019-06-12] MEDS: APIXABAN 5 MG TAB PO SCH ×2 (10:24→21:07)
--- NOTE | 2019-06-12 10:36 | P.CNPUL ---
History of Present Illness Consult date: 06/12/19 Requesting physician: Tesfaye E Shaan Reason for consult: dyspnea Chief complaint: Shortness of breath History of present illness: This is a very pleasant 84-year-old gentleman who follows with Dr. Alberts is his primary care provider. He has a history of prostate cancer with previous prostatectomy, hyperlipidemia, hypertension, sick sinus syndrome status post permanent pacemaker insertion, previous non-small cell lung cancer with a right lower lobe resection, PE/DVT, COPD, former smoker. He presented here yesterday as a transfer from [facility] with a diagnosis of congestive heart failure and a left lower lobe pneumonia and he was not improving. He was initially admitted to the regular medical floor. Proximally 3:00 this morning the patient developed worsening respiratory distress and hypoxemia and 18 was called. He was initiated on BiPAP 14/5 and 100% FiO2 and transferred to the intensive care unit. Upon further investigation the patient is a DO NOT RESUSCITATE/DO NOT INTUBATE CODE STATUS. He is seen today in the ICU. He is currently on the BiPAP 14/5 and 65% FiO2. Blood gases were PaO2 213, pCO2 54 and a pH of 7.2 500% FiO2. His x-ray does show evidence of left lower lobe pneumonia and congestive heart failure with pulmonary vascular congestion and left pleural effusion. He is currently awake and alert. He denies any worsening shortness of breath at this time. His lungs have few scattered rhonchi, end expiratory wheeze, crackles in the posterior bases left greater than right. He is on DuoNeb inhalations, Pulmicort and Perforomist inhalations, antibiotics in the form of Levaquin. Remains anticoagulated with Eliquis. Review of Systems REVIEW OF SYSTEMS: CONSTITUTIONAL: Denies any recent significant weight loss or weight gain. EYES: Denies change in vision. EARS, NOSE, MOUTH, THROAT: Denies headaches, denies sore throat. CARDIOVASCULAR: Denies chest pain, palpitations or syncopal episodes. RESPIRATORY: Positive for shortness of breath, cough, congestion no hemoptysis. GASTROINTESTINAL: Denies change in appetite, denies abdominal pain GENITOURINARY: Denies hematuria, denies infections. MUSKULOSKELETAL: Denies pain, denies swelling. INTEGUMENTARY: Denies rash, denies eczema. NEUROLOGICAL: Denies recent memory loss, no recent seizure activity. PSYCHIATRIC: Denies anxiety, denies depression. HEMATOLOGIC/LYMPHATIC: Denies anemia, denies enlarged lymph nodes. Past Medical History Past Medical History: Asthma, Cancer, Heart Failure, COPD, Deep Vein Thrombosis (DVT), Eye Disorder, Hyperlipidemia, Hypertension, Pneumonia, Syncope Additional Past Medical History / Comment(s): Non small cell R lung cancer with surgery, prostate cancer with surgery, DVT x2 L leg, recent R lung PE, cardiomyopathy, mitral valve regurgitation, bilateral glaucoma-legally blind. History of Any Multi-Drug Resistant Organisms: None Reported Past Surgical History: Pacemaker Additional Past Surgical History / Comment(s): Right lower lobe resection, prostatectomy, 2012 pacemaker insertion, MAMIE, tilt table test, R foot fracture with surgery, colonoscopies, bilateral cataract removals/lens implants. Past Anesthesia/Blood Transfusion Reactions: No Reported Reaction Type of Cardiac Device: Permanent Pacemaker Device Placement Date:: Jul 18 2011 Smoking Status: Former smoker - Past Family History Brother(s) Family Medical History: Cancer Additional Family Medical History / Comment(s): prostate Mother Family Medical History: Myocardial Infarction (ME) Additional Family Medical History / Comment(s): Mother of a ME at the age of 72 yrs. Father Family Medical History: Myocardial Infarction (ME) Additional Family Medical History / Comment(s): Father of a ME while shoveling snow at the age of 75 yrs. Medications and Allergies Home Medications Medication Instructions Recorded Confirmed Type Dorzolamide HCl [Trusopt 2%] 1 drop BOTH EYES BID 03/01/17 06/11/19 History Labetalol [Trandate] 50 mg PO DAILY@209903/01/17 06/11/19 History Labetalol [Trandate] 100 mg PO DAILY@69903/01/17 06/11/19 History Latanoprost Ophth [Xalatan 0.005%] 1 drop BOTH EYES HS@209903/01/17 06/11/19 History Losartan [Cozaar] 50 mg PO DAILY@69903/01/17 06/11/19 History Multivitamins, Thera [Multivitamin 1 tab PO DAILY@69903/01/17 06/11/19 History (formulary)] Pravastatin Sodium 80 mg PO MOWEFR@209903/01/17 06/11/19 History Vit C/E/Zn/Coppr/Lutein/Zeaxan 1 cap PO BID@0700,2100 03/01/17 06/11/19 History [Preservision Areds 2 Softgel] Betaxolol HCl [Betoptic S 0.5% 1 drop BOTH EYES BID 03/31/19 06/11/19 History Ophth Soln] Fluticasone/Vilanterol [Breo 1 puff INHALATION RT-DAILY@0700 03/31/19 06/11/19 History Ellipta 100-25 Mcg Inhaler] Apixaban [Eliquis] 5 mg PO BID@0700,1700 06/11/19 06/11/19 History Furosemide [Lasix] 20 mg PO DAILY@0700 06/11/19 06/11/19 History Ipratropium-Albuterol Nebulize 3 ml INHALATION RT-QID 06/11/19 06/11/19 History [Duoneb 0.5 mg-3 mg/3 ml Soln] Ipratropium-Albuterol Nebulize 3 ml INHALATION RT-QID PRN 06/11/19 06/11/19 History [Duoneb 0.5 mg-3 mg/3 ml Soln] Montelukast [Singulair] 10 mg PO HS@2100 06/11/19 06/11/19 History Spironolactone 25 mg PO DAILY@0700 06/11/19 06/11/19 History Tiotropium [place] [Spiriva 2 puff INHALATION RT-DAILY@0700 06/11/19 06/11/19 History Respimat] guaiFENesin [guaiFENesin Oral 200 mg PO Q4H PRN 06/11/19 06/11/19 History Solution] Allergies Allergy/AdvReac Type Severity Reaction Status Date / Time ezetimibe [From Vytorin] Allergy Swelling Verified 06/11/19 19:50 lisinopril Allergy Swelling Verified 06/11/19 19:50 prednisone Allergy swelling Verified 06/11/19 19:50 behind eyes simvastatin [From Vytorin] Allergy Swelling Verified 06/11/19 19:50 Physical Exam Vitals: Vital Signs Temp Pulse Pulse Resp BP BP Pulse Ox 06/12/19 10:00 112 H 32 H 99/60 98 06/12/19 09:30 84 22 94/59 98 06/12/19 09:00 82 25 H 78/48 98 06/12/19 08:30 83 26 H 80/52 99 06/12/19 08:25 86 06/12/19 08:00 99.8 F H 84 27 H 87/48 99 06/12/19 07:49 86 06/12/19 07:40 104 H 44 H 76/59 97 06/12/19 07:20 114 H 39 H 67/53 98 06/12/19 07:00 115 H 47 H 104/73 97 06/12/19 06:50 114 H 37 H 55/44 95 06/12/19 06:40 117 H 47 H 96 06/12/19 06:30 120 H 36 H 114/54 95 06/12/19 06:20 81 48 H 114/54 95 06/12/19 06:10 109 H 43 H 143/122 94 L 06/12/19 06:00 109 H 43 H 97/84 96 06/12/19 05:50 120 H 48 H 97/84 97 06/12/19 05:40 82 45 H 96 06/12/19 05:30 92 37 H 95 06/12/19 05:20 100 39 H 94 L 06/12/19 05:10 100 41 H 187/92 83 L 06/12/19 05:00 100 43 H 110/88 95 06/12/19 04:50 77 38 H 110/88 93 L 06/12/19 04:40 101 H 39 H 110/88 06/12/19 04:38 40 H 06/12/19 04:30 84 27 H 91 L 06/12/19 04:20 109 H 36 H 96 06/12/19 04:10 97.2 F L 92 40 H 131/77 99 06/12/19 04:00 92 36 H 06/12/19 03:59 40 H 06/12/19 02:15 85 06/12/19 02:00 87 06/11/19 21:43 68 06/11/19 21:27 68 06/11/19 21:00 98.2 F 97 21 131/70 97 06/11/19 13:30 97.1 F L 93 22 146/83 93 L Intake and Output 06/11/19 06/12/19 06/12/19 22:59 06:59 14:59 Intake Total 850 Output Total 20 130 260 Balance -20 130 590 Intake: IV 850 Lactated Ringers 750 ml @ 750 999 mls/hr IV .Q46M ONE Rx#:[id number] lactated ringers 100 Output: Urine 20 130 260 Other: Voiding Method Toilet Indwelling Catheter Indwelling Catheter Bedside Commode Weight 73.21 kg REVIEW OF SYSTEMS: CONSTITUTIONAL: Denies any recent significant weight loss or weight gain. EYES: Denies change in vision. EARS, NOSE, MOUTH, THROAT: Denies headaches, denies sore throat. CARDIOVASCULAR: Denies chest pain, palpitations or syncopal episodes. RESPIRATORY: Positive for shortness of breath, cough, congestion no hemoptysis. GASTROINTESTINAL: Denies change in appetite, denies abdominal pain GENITOURINARY: Denies hematuria, denies infections. MUSKULOSKELETAL: Denies pain, denies swelling. INTEGUMENTARY: Denies rash, denies eczema. NEUROLOGICAL: Denies recent memory loss, no recent seizure activity. PSYCHIATRIC: Denies anxiety, denies depression. HEMATOLOGIC/LYMPHATIC: Denies anemia, denies enlarged lymph nodes. Results - Laboratory Findings CBC and BMP: 06/12/19 03:29 06/12/19 08:45 ABG ABG pH 7.25 (7.35-7.45) L 06/12/19 04:20 ABG pCO2 54 mmHg (35-45) H 06/12/19 04:20 ABG pO2 213 mmHg (83-108) H 06/12/19 04:20 ABG O2 Saturation 99.4 % (94-97) H 06/12/19 04:20 PT/INR, D-dimer D-Dimer 4.02 mg/L FEU (<0.60) H 06/12/19 03:29 Abnormal lab findings: Abnormal Labs 06/12/19 06/12/19 06/12/19 03:24 03:29 03:29 WBC 14.3 H MCHC 29.2 L D-Dimer 4.02 H ABG pH 7.34 L ABG pCO2 ABG pO2 69 L ABG Total CO2 ABG O2 Saturation 93.0 L Sodium Potassium BUN Glucose POC Glucose (mg/dL) Plasma Lactic Acid Gary Calcium AST ALT 06/12/19 06/12/19 06/12/19 03:29 03:29 03:59 WBC MCHC D-Dimer ABG pH ABG pCO2 ABG pO2 ABG Total CO2 ABG O2 Saturation Sodium 134 L Potassium 6.2 H* BUN 33 H Glucose 143 H POC Glucose (mg/dL) 111 H Plasma Lactic Acid Gary 2.7 H* Calcium 8.3 L AST 63 H ALT 68 H 06/12/19 04:20 WBC MCHC D-Dimer ABG pH 7.25 L ABG pCO2 54 H ABG pO2 213 H ABG Total CO2 25 H ABG O2 Saturation 99.4 H Sodium Potassium BUN Glucose POC Glucose (mg/dL) Plasma Lactic Acid Gary Calcium AST ALT - Diagnostic Findings Chest x-ray: image reviewed Assessment and Plan Assessment: 1 Acute hypoxic/hypercapnic respiratory failure secondary to a left lower lobe infiltrate possible community-acquired pneumonia, acute exacerbation of systolic congestive heart failure and acute exacerbation of COPD 2 History of non-small cell lung cancer with previous right lower lobe resection 3 Hypertension 4 Hyperlipidemia 5 Permanent pacemaker implantation 6 History of prostate cancer status post prostatectomy 7 History of previous tobacco dependence Plan: The patient was seen and evaluated by Dr. Palacio. Chest x-ray and labs reviewed. The patient is a DO NOT RESUSCITATE/DO NOT INTUBATE CODE STATUS. We'll continue with BiPAP support 14/5 and 65% FiO2 as tolerated. He did receive 750 ML's of lactated Ringer's. IV at 50 MLS per hour. Continue with Levaquin. Continue bronchodilators. The patient does have a steroid sensitivity. We will continue to follow and make further recommendations based on his clinical st atus. I, the cosigning physician, performed a history & physical examination of the patient. Lungs sounds scattered rhonchi, crackles in posterior bases left greater than right Maintaining good O2 saturations in the 90s on BiPAP 14/5 and 65% FiO2. I discussed the assessment and plan of care with my nurse practitioner, Radha Castillo. I attest to the above consultation as dictated by her. Time with Patient: Greater than 30
[2019-06-12] MEDS: DORZOLAMIDE HCL 2% DROPS 10 ML BTL BOTH EYES SCH ×2 (12:23→21:37)
[2019-06-12] MEDS: TIMOLOL 0.5% OPHTH DROPS 5 ML BTL BOTH EYES SCH ×2 (12:23→21:16)
--- NOTE | 2019-06-12 13:38 | P.PN ---
Subjective this is a pleasant 84 years old male with past medical history of lung and prostate cancer, COPD, deep venous thrombosis, hyperlipidemia, hypertension, and small lung cancer status post right lower lobe resection, prostatectomy, history of pacemaker Originally patient was admitted electively [facility] for pulmonary embolism and from there he went to rehab before he was transferred to [facility] with a breathing difficulty. Patient was transferred from [facility], he was admitted there for over 3 days for possible pneumonia and COPD exacerbation and he was getting antibiotics, breathing treatments and steroids however he did not improve so decided to transfer him to [facility] for pulmonary evaluation and possible bronchoscopy as and his CAT scan of the chest to rule out PE which was negative shows right intra-abdominal secretions with 7 mm lesion noted in the right lower lobe bronchi Labs from [place] noted including sodium 1:30, potassium 4.6, creatinine 0.9, WBC 7.19, hemoglobin 10.8, platelets 262. Chest x-ray: Possible retrocardiac infiltrate per radiologist CT of the chest to rule out PE left pleural effusion, small 1 no pneumothorax soft tissue density inside the bronchi on the right lower lobe cannot exclude secretion or endo-bronchial lesion maximum diameter of 7 mm. Air bronchograms of the posterior portion of the left lung base committing airspace disease 06/12/2019 Patient got into respiratory distress in the morning and he was transferred to the ICU he was placed on BiPAP since then. His potassium was high, at 6.2, he presented protocol and his potassium came down to 4.7, blood pressure was high initially as per staff his systolic more than 118, however came down later on with systolic been in 60s and 70s. Patient received IV fluid, currently his blood pressure is 112/60. Patient currently on Levaquin and Eliquis, steroids just not been given because of his sensitivity. Review of systems: CONSTITUTIONAL: No fever, no malaise, no fatigue. HEENT: No recent visual problems or hearing problems. Denied any sore throat. CARDIOVASCULAR: No orthopnea, PND, no palpitations, no syncope. GASTROINTESTINAL: No diarrhea, no nausea, no vomiting, no abdominal pain. Normoactive bowel sounds. NEUROLOGICAL: No headaches, no weakness, no numbness. HEMATOLOGICAL: Denies any bleeding or petechiae. GENITOURINARY: Denies any burning micturition, frequency, or urgency. MUSCULOSKELETAL/RHEUMATOLOGICAL: Denies any joint pain, swelling, or any muscle pain. ENDOCRINE: Denies any polyuria or polydipsia. Active Medications Generic Name Dose Route Start Last Admin Trade Name Freq PRN Reason Stop Dose Admin Albuterol/Ipratropium 3 ml 06/11/19 20:30 06/12/19 02:00 Duoneb 0.5 Mg-3 Mg/3 Ml Soln INHALATION 3 ml RT-QID PRN Administration Shortness Of Breath Albuterol/Ipratropium 3 ml 06/12/19 08:00 06/12/19 11:00 Duoneb 0.5 Mg-3 Mg/3 Ml Soln INHALATION 3 ml RT-QID MAYO Administration Apixaban 5 mg 06/11/19 21:00 06/12/19 10:24 Eliquis PO Not Given BID MAYO Budesonide 1 mg 06/12/19 08:00 06/12/19 08:26 Pulmicort INHALATION 1 mg RT-BID MAYO Administration Dorzolamide HCl 1 drops 06/11/19 21:00 06/12/19 12:23 Trusopt BOTH EYES 1 drops BID MAYO Administration Famotidine 20 mg 06/11/19 21:00 06/12/19 08:40 Pepcid IV 20 mg Q12HR MAYO Administration Formoterol Fumarate 20 mcg 06/12/19 08:00 06/12/19 08:26 Perforomist INHALATION 20 mcg RT-BID MAYO Administration Guaifenesin 200 mg 06/11/19 20:30 Robitussin PO Q4H PRN Cough Levofloxacin 500 mg/ IV 100 mls @ 100 mls/hr 06/11/19 15:00 06/11/19 15:52 Solution IVPB 100 mls/hr Q24H MAYO Administration Labetalol HCl 100 mg 06/12/19 07:00 06/12/19 08:28 Trandate PO Not Given DAILY@0700 MAYO Labetalol HCl 50 mg 06/11/19 21:00 06/11/19 21:09 Trandate PO 50 mg DAILY@2100 MAYO Administration Latanoprost 1 drops 06/11/19 21:00 06/11/19 21:10 Xalatan 0.005% BOTH EYES 1 drops HS@2100 MAYO Administration Losartan Potassium 50 mg 06/12/19 07:00 06/12/19 08:28 Cozaar PO Not Given DAILY@0700 [facility] Montelukast Sodium 10 mg 06/11/19 21:00 06/11/19 21:10 Singulair PO 10 mg HS@2100 [facility] Administration Naloxone HCl 0.2 mg 06/12/19 04:05 Narcan IV Q2M PRN Opioid Reversal Pravastatin Sodium 80 mg 06/12/19 21:00 Pravachol PO MOWEFR@2100 [facility] Spironolactone 25 mg 06/12/19 07:00 06/12/19 08:28 Aldactone PO Not Given DAILY@0700 [facility] Timolol Maleate 1 drops 06/11/19 21:00 06/12/19 12:23 Timoptic BOTH EYES 1 drops BID [facility] Administration Objective - Vital Signs Vital signs: Vital Signs Temp 99.8 F H 06/12/19 08:00 Pulse 78 06/12/19 12:30 Resp 17 06/12/19 12:30 BP 112/60 06/12/19 12:30 Pulse Ox 99 06/12/19 12:30 Intake & Output 06/11/19 06/12/19 06/12/19 18:59 06:59 18:59 Intake Total 1050 Output Total 150 580 Balance -150 470 Weight 73.21 kg Intake: IV 1050 Lactated Ringers 750 ml @ 750 999 mls/hr IV .Q46M ONE Rx#:[id number] lactated ringers 300 Output: Urine 150 580 Other: Voiding Method Toilet Indwelling Catheter Indwelling Catheter Bedside Commode # Voids 1 - Labs CBC & Chem 7: 06/12/19 03:29 06/12/19 08:45 Labs: Abnormal Lab Results - Last 24 Hours (Table) 06/12/19 06/12/19 06/12/19 Range/Units 03:24 03:29 03:29 WBC (3.8-10.6) k/uL MCHC (31.0-37.0) g/dL D-Dimer 4.02 H (<0.60) mg/L FEU ABG pH 7.34 L (7.35-7.45) ABG pCO2 (35-45) mmHg ABG pO2 69 L (83-108) mmHg ABG Total CO2 (19-24) mmol/L ABG O2 Saturation 93.0 L (94-97) % Sodium (137-145) mmol/L Potassium (3.5-5.1) mmol/L BUN (9-20) mg/dL Glucose (74-99) mg/dL POC Glucose (mg/dL) (75-99) mg/dL Plasma Lactic Acid Gary (0.7-2.0) mmol/L Calcium (8.4-10.2) mg/dL AST (17-59) U/L ALT (4-49) U/L Procalcitonin 0.12 H (0.02-0.09) ng/mL 06/12/19 06/12/19 06/12/19 Range/Units 03:29 03:29 03:29 WBC 14.3 H (3.8-10.6) k/uL MCHC 29.2 L (31.0-37.0) g/dL D-Dimer (<0.60) mg/L FEU ABG pH (7.35-7.45) ABG pCO2 (35-45) mmHg ABG pO2 (83-108) mmHg ABG Total CO2 (19-24) mmol/L ABG O2 Saturation (94-97) % Sodium 134 L (137-145) mmol/L Potassium 6.2 H* (3.5-5.1) mmol/L BUN 33 H (9-20) mg/dL Glucose 143 H (74-99) mg/dL POC Glucose (mg/dL) (75-99) mg/dL Plasma Lactic Acid Gary 2.7 H* (0.7-2.0) mmol/L Calcium 8.3 L (8.4-10.2) mg/dL AST 63 H (17-59) U/L ALT 68 H (4-49) U/L Procalcitonin (0.02-0.09) ng/mL 06/12/19 06/12/19 Range/Units 03:59 04:20 WBC (3.8-10.6) k/uL MCHC (31.0-37.0) g/dL D-Dimer (<0.60) mg/L FEU ABG pH 7.25 L (7.35-7.45) ABG pCO2 54 H (35-45) mmHg ABG pO2 213 H (83-108) mmHg ABG Total CO2 25 H (19-24) mmol/L ABG O2 Saturation 99.4 H (94-97) % Sodium (137-145) mmol/L Potassium (3.5-5.1) mmol/L BUN (9-20) mg/dL Glucose (74-99) mg/dL POC Glucose (mg/dL) 111 H (75-99) mg/dL Plasma Lactic Acid Gary (0.7-2.0) mmol/L Calcium (8.4-10.2) mg/dL AST (17-59) U/L ALT (4-49) U/L Procalcitonin (0.02-0.09) ng/mL Assessment and Plan Assessment: Acute COPD exacerbation Community acquired pneumonia Hyponatremia, and hyperkalemia, improved Acute hypoxic respiratory failure Non-small lung cancer status post right lower lobe resection History of prostate cancer status post prostatectomy pulmonary embolism on eliqius Hypertension Hyperlipidemia Deep venous thrombosis this is a pleasant 84 years old male who presents with pneumonia and COPD. Continue with antibiotics Levaquin. Continue with broncho-dilator and oxygen. Pulmonary consult. Labs and medication were reviewed.. Continue same treatment. Continue with symptomatic treatment. Resume home medication. Monitor lytes and vitals. DVT and GI prophylaxis. Further recommendations of the clinical course of the patient DVT prophylaxis: Eliquis GI Prophylaxis: Pepcid Patient is DO NOT RESUSCITATE Prognosis is guarded Plan: GENERAL: The patient is alert and oriented x3, not in any acute distress. Well developed, well nourished. HEENT: Pupils are round and equally reacting to light. EOMI. No scleral icterus. No conjunctival pallor. Normocephalic, atraumatic. No pharyngeal erythema. No thyromegaly. CARDIOVASCULAR: S1 and S2 present. No murmurs, rubs, or gallops. -PULMONARY: Chest is clear to auscultation, harsh breath sounds bilaterally, sc attered wheezing. Patient currently on BiPAP machine ABDOMEN: Soft, nontender, nondistended, normoactive bowel sounds. No palpable organomegaly. MUSCULOSKELETAL: No joint swelling or deformity. EXTREMITIES: No cyanosis, clubbing, or pedal edema. NEUROLOGICAL: Gross neurological examination did not reveal any focal deficits. SKIN: No rashes. No petechiae
[2019-06-12] MEDS: LEVOFLOXACIN 500MG-D5W PMX 500 MG in DEXTROSE/WATER 1 100ML.BAG IVPB SCH (15:49)
[2019-06-12] MEDS: PRAVASTATIN SODIUM 80 MG TAB PO SCH (21:07)
[2019-06-12] MEDS: MONTELUKAST 10 MG TAB PO SCH (21:07)
[2019-06-12] MEDS: LATANOPROST 0.005% OPHTH DROPS 2.5 ML BTL BOTH EYES SCH (22:26)
[2019-06-12] MEDS: SODIUM CHLORIDE 0.9% 1,000 ML IV SCH (23:27)
[2019-06-13 05:42] LABS: Basophils % (A) 0 %; Eosinophils % (A) 1 %; HCT 38.7 % (39.0-53.0); HGB 11.7 gm/dL (13.0-17.5); Hypochromasia Moderate; Lymphocytes # (A) 0.5 k/uL (1.0-4.8); Lymphocytes % (A) 8 %; MCH 28.1 pg (25.0-35.0); MCHC 30.3 g/dL (31.0-37.0); MCV 92.9 fL (80.0-100.0); Mean Platelet Volume 6.8; Monocytes # (A) 0.3 k/uL (0-1.0); Monocytes % (A) 5 %; Neutrophils # (A) 5.8 k/uL (1.3-7.7); Neutrophils % (A) 85 %; Platelet Count 247 k/uL (150-450); RBC 4.17 m/uL (4.30-5.90); RDW 15.2 % (11.5-15.5); WBC 6.8 k/uL (3.8-10.6)
--- NOTE | 2019-06-13 06:23 | XR ---
EXAMINATION TYPE: XR chest 1V portable DATE OF EXAM: 06/13/2019 HISTORY: Pneumonia. REFERENCE: Previous study dated 06/12/2019. FINDINGS: A bipolar pacemaker is in place on the left. The heart is upper limits of normal in size. There are bilateral effusions. There is vascular congest ion. There is continuing opacity at the left lung base which may represent confluent edema or pneumon ia. IMPRESSION: NO SIGNIFICANT INTERVAL CHANGE IN CHEST.
[2019-06-13 06:26] LABS: Albumin 2.6 g/dL (3.5-5.0); Bilirubin, Delta 0.4 mg/dL (0.0-0.2); Bilirubin,Unconjugated 0.3 mg/dL (0.0-1.1); Calcium 7.7 mg/dL (8.4-10.2); Potassium 4.9 mmol/L (3.5-5.1); Total Bilirubin 0.7 mg/dL (0.2-1.3); Total Protein 5.1 g/dL (6.3-8.2)
[2019-06-13 06:32] LABS: Glucose,Whole Blood 60 mg/dL (75-99)
[2019-06-13] MEDS ORDERED: DEXTROSE 10 % IN WATER 150 ML IV ONE (06:32)
[2019-06-13 06:57] LABS: Glucose,Whole Blood 134 mg/dL (75-99)
[2019-06-13] MEDS: IPRATROPIUM-ALBUTEROL 3 ML NEB INHALATION SCH ×4 (07:47→19:56)
[2019-06-13] MEDS: BUDESONIDE 1 MG/2 ML NEBU INHALATION SCH ×2 (07:47→19:56)
[2019-06-13] MEDS: FORMOTEROL FUMARATE 20 MCG/2 ML NEBU INHALATION SCH ×2 (07:48→19:56)
[2019-06-13] MEDS: TIMOLOL 0.5% OPHTH DROPS 5 ML BTL BOTH EYES SCH ×2 (08:40→19:56)
[2019-06-13] MEDS ORDERED: FAMOTIDINE 20 MG TAB PO SCH (09:00)
[2019-06-13] MEDS: SPIRONOLACTONE 25 MG TAB PO SCH (09:02)
[2019-06-13] MEDS: LABETALOL 100 MG TAB PO SCH ×2 (09:02→19:52)
[2019-06-13] MEDS: APIXABAN 5 MG TAB PO SCH ×2 (09:02→19:52)
[2019-06-13] MEDS: LOSARTAN 50 MG TAB PO SCH (09:02)
[2019-06-13] MEDS: SODIUM CHLORIDE 0.9% 1,000 ML IV SCH (09:50)
[2019-06-13] MEDS: DORZOLAMIDE HCL 2% DROPS 10 ML BTL BOTH EYES SCH ×2 (09:50→19:56)
[2019-06-13] MEDS: FAMOTIDINE 20 MG/2 ML VIAL IV SCH (09:50)
[2019-06-13] MEDS: NITROGLYCERIN 0.2MG/HR PATCH TRANSDERM SCH (09:50)
--- NOTE | 2019-06-13 10:12 | P.PN ---
Subjective Progress Note Date: 06/13/19 Principal diagnosis: Acute hypoxic/hypercapnic respiratory failure secondary left lower lobe infiltrate and acute exacerbation of systolic congestive heart failure This is a very pleasant 84-year-old gentleman who follows with Dr. Alberts is his primary care provider. He has a history of prostate cancer with previous prostatectomy, hyperlipidemia, hypertension, sick sinus syndrome status post permanent pacemaker insertion, previous non-small cell lung cancer with a right lower lobe resection, PE/DVT, COPD, former smoker. He presented here yesterday as a transfer from [facility] with a diagnosis of congestive heart failure and a left lower lobe pneumonia and he was not improving. He was initially admitted to the regular medical floor. Proximally 3:00 this morning the patient developed worsening respiratory distress and hypoxemia and 18 was called. He was initiated on BiPAP 14/5 and 100% FiO2 and transferred to the intensive care unit. Upon further investigation the patient is a DO NOT RESUSCITATE/DO NOT INTUBATE CODE STATUS. He is seen today in the ICU. He is currently on the BiPAP 14/5 and 65% FiO2. Blood gases were PaO2 213, pCO2 54 and a pH of 7.2 500% FiO2. His x-ray does show evidence of left lower lobe pneumonia and congestive heart failure with pulmonary vascular congestion and left pleural effusion. He is currently awake and alert. He denies any worsening shortness of breath at this time. His lungs have few scattered rhonchi, end expiratory wheeze, crackles in the posterior bases left greater than right. He is on DuoNeb inhalations, Pulmicort and Perforomist inhalations, antibiotics in the form of Levaquin. Remains anticoagulated with Eliquis. The patient is seen today 06/13/2019 in follow-up in the intensive care unit. He has remained quite BiPAP dependent. He is quite anxious when off even for a few minutes. Remains on 14/5 on 40% FiO2. 0.9 @ 100 ML's per hour. White count 6.8. Hemoglobin 11.7. Creatinine 1.12. He remains on DuoNeb inhalations, Pulmicort and Perforomist inhalations, Singulair. Currently on Levaquin. Anticoagulated with Eliquis. Objective - Vital Signs Vital signs: Vital Signs Temp 97.7 F 06/13/19 08:00 Pulse 81 06/13/19 09:00 Resp 20 06/13/19 09:00 BP 152/86 06/13/19 09:00 Pulse Ox 98 06/13/19 09:00 Intake & Output 06/12/19 06/13/19 06/13/19 18:59 06:59 18:59 Intake Total 1650 1450 300 Output Total 1460 1270 280 Balance 190 180 20 Weight 77.4 kg Intake: IV 1650 1300 300 0.9 Sodium Chloride 1100 300 Lactated Ringers 750 ml @ 750 999 mls/hr IV .Q46M ONE Rx#:[id number] lactated ringers 900 200 Intake, IV Titration 150 Amount Dextrose 10 % in Water 150 150 ml @ 999 mls/hr IV ONCE ONE Rx#:[id number] Output: Urine 1460 1270 280 Other: Voiding Method Indwelling Catheter Indwelling Catheter Indwelling Catheter - Exam GENERAL EXAM: Alert, pleasant 84-year-old gentleman, currently on BiPAP 14/5 on 40% FiO2, fairly comfortable in no apparent distress. HEAD: Normocephalic. EYES: Normal reaction of pupils, equal size. NOSE: Clear with pink turbinates. THROAT: No erythema or exudates. NECK: No masses, no JVD. CHEST: No chest wall deformity. LUNGS: Equal air entry with crackles in the bilateral posterior bases. CVS: S1 and S2 normal with no audible murmur, regular rhythm. ABDOMEN: No hepatosplenomegaly, normal bowel sounds, no guarding or rigidity. SPINE: No scoliosis or deformity SKIN: No rashes CENTRAL NERVOUS SYSTEM: No focal deficits, tone is normal in all 4 extremities. EXTREMITIES: There is no peripheral edema. No clubbing, no cyanosis. Peripheral pulses are intact. - Labs CBC & Chem 7: 06/13/19 04:50 06/13/19 04:50 Labs: Abnormal Lab Results - Last 24 Hours (Table) 06/12/19 06/13/19 06/13/19 Range/Units 03:29 04:50 04:50 RBC 4.17 L (4.30-5.90) m/uL Hgb 11.7 L (13.0-17.5) gm/dL Hct 38.7 L (39.0-53.0) % MCHC 30.3 L (31.0-37.0) g/dL Lymphocytes # 0.5 L (1.0-4.8) k/uL Sodium 134 L (137-145) mmol/L BUN 37 H (9-20) mg/dL Glucose 59 L (74-99) mg/dL POC Glucose (mg/dL) (75-99) mg/dL Calcium 7.7 L (8.4-10.2) mg/dL Delta Bilirubin 0.4 H (0.0-0.2) mg/dL ALT 71 H (4-49) U/L Total Protein 5.1 L (6.3-8.2) g/dL Albumin 2.6 L (3.5-5.0) g/dL Procalcitonin 0.12 H (0.02-0.09) ng/mL 06/13/19 06/13/19 Range/Units 06:30 06:55 RBC (4.30-5.90) m/uL Hgb (13.0-17.5) gm/dL Hct (39.0-53.0) % MCHC (31.0-37.0) g/dL Lymphocytes # (1.0-4.8) k/uL Sodium (137-145) mmol/L BUN (9-20) mg/dL Glucose (74-99) mg/dL POC Glucose (mg/dL) 60 L 134 H (75-99) mg/dL Calcium (8.4-10.2) mg/dL Delta Bilirubin (0.0-0.2) mg/dL ALT (4-49) U/L Total Protein (6.3-8.2) g/dL Albumin (3.5-5.0) g/dL Procalcitonin (0.02-0.09) ng/mL Assessment and Plan Assessment: 1 Acute hypoxic/hypercapnic respiratory failure secondary to a left lower lobe infiltrate possible community-acquired pneumonia, acute exacerbation of systolic congestive heart failure and acute exacerbation of COPD 2 History of non-small cell lung cancer with previous right lower lobe resection 3 Hypertension 4 Hyperlipidemia 5 Permanent pacemaker implantation 6 History of prostate cancer status post prostatectomy 7 History of previous tobacco dependence Plan: The patient was seen and evaluated by Dr. Palacio. Chest x-ray and labs reviewed. The patient is a DO NOT RESUSCITATE/DO NOT INTUBATE CODE STATUS. He has remained quite BiPAP dependent the past 24 hours. We'll continue with BiPAP support 14/5 and 40% FiO2 as tolerated. Continue with Levaquin. Continue bronchodilators. The patient does have a steroid sensitivity. We will continue to follow and make further recommendations based on his clinical status. I, the cosigning physician, performed a history & physical examination of the patient. Lungs sounds scattered crackles in posterior bases left greater than right Maintaining good O2 saturations in the 90s on BiPAP 14/5 and 40% FiO2. I discussed the assessment and plan of care with my nurse practitioner, Radha conti. I attest to the above consultation as dictated by her.
[2019-06-13 12:14] LABS: Glucose,Whole Blood 69 mg/dL (75-99)
[2019-06-13 12:33] LABS: Glucose,Whole Blood 116 mg/dL (75-99)
[2019-06-13] MEDS ORDERED: SODIUM CHLORIDE 0.65% NASAL SPRAY 44 ML BTL NASAL PRN (14:26)
[2019-06-13] MEDS: DEXTROSE 5%-0.9% NACL 1,000 ML IV SCH (14:33)
[2019-06-13] MEDS: LEVOFLOXACIN 500MG-D5W PMX 500 MG in DEXTROSE/WATER 1 100ML.BAG IVPB SCH (14:33)
--- NOTE | 2019-06-13 14:43 | P.PN ---
Subjective this is a pleasant 84 years old male with past medical history of lung and prostate cancer, COPD, deep venous thrombosis, hyperlipidemia, hypertension, and small lung cancer status post right lower lobe resection, prostatectomy, history of pacemaker Originally patient was admitted electively [facility] for pulmonary embolism and from there he went to rehab before he was transferred to [facility] with a breathing difficulty. Patient was transferred from [facility], he was admitted there for over 3 days for possible pneumonia and COPD exacerbation and he was getting antibiotics, breathing treatments and steroids however he did not improve so decided to transfer him to [facility] for pulmonary evaluation and possible bronchoscopy as and his CAT scan of the chest to rule out PE which was negative shows right intra-abdominal secretions with 7 mm lesion noted in the right lower lobe bronchi Labs from [place] noted including sodium 1:30, potassium 4.6, creatinine 0.9, WBC 7.19, hemoglobin 10.8, platelets 262. Chest x-ray: Possible retrocardiac infiltrate per radiologist CT of the chest to rule out PE left pleural effusion, small 1 no pneumothorax soft tissue density inside the bronchi on the right lower lobe cannot exclude secretion or endo-bronchial lesion maximum diameter of 7 mm. Air bronchograms of the posterior portion of the left lung base committing airspace disease 06/12/2019 Patient got into respiratory distress in the morning and he was transferred to the ICU he was placed on BiPAP since then. His potassium was high, at 6.2, he presented protocol and his potassium came down to 4.7, blood pressure was high initially as per staff his systolic more than 118, however came down later on with systolic been in 60s and 70s. Patient received IV fluid, currently his blood pressure is 112/60. Patient currently on Levaquin and Eliquis, steroids just not been given because of his sensitivity. 06/13/2019 Patient remains in the ICU, he is dependent on BiPAP for breathing, although he is awake and alert however pulmonary/critical care team are following the patient closely. His breathing rate at 26 currently, blood pressure is 145/82. Labs reviewed in the looks stable however sugar on the low side couple times, we going to change his normal saline to D5 normal saline at 75 mL/h. Discussed with family at bedside about his compromised respiratory condition, and taken to discuss it further with pulmonary team as they mentioned hospice care as well Objective - Vital Signs Vital signs: Vital Signs Temp 98.4 F 06/13/19 12:00 Pulse 86 06/13/19 14:00 Resp 26 H 06/13/19 14:00 BP 145/82 06/13/19 14:00 Pulse Ox 97 06/13/19 14:00 Intake & Output 06/12/19 06/13/19 06/13/19 18:59 06:59 18:59 Intake Total 1650 1450 850 Output Total 1460 1270 680 Balance 190 180 170 Weight 77.4 kg Intake: IV 1650 1300 700 0.9 Sodium Chloride 1100 700 Lactated Ringers 750 ml @ 750 999 mls/hr IV .Q46M ONE Rx#:[id number] lactated ringers 900 200 Intake, IV Titration 150 150 Amount Dextrose 10 % in Water 150 150 150 ml @ 999 mls/hr IV ONCE ONE Rx#:[id number] Output: Urine 1460 1270 680 Other: Voiding Method Indwelling Catheter Indwelling Catheter Indwelling Catheter - Exam -GENERAL: The patient is alert and oriented x3, is on BiPAP . HEENT: Pupils are round and equally reacting to light. EOMI. No scleral icterus. No conjunctival pallor. Normocephalic, atraumatic. No pharyngeal erythema. No thyromegaly. CARDIOVASCULAR: S1 and S2 present. No murmurs, rubs, or gallops. -PULMONARY: Decreased breath sounds especially in the right side, harsh breath sounds bilaterally, scattered wheezing ABDOMEN: Soft, nontender, nondistended, normoactive bowel sounds. No palpable organomegaly. MUSCULOSKELETAL: No joint swelling or deformity. EXTREMITIES: No cyanosis, clubbing, or pedal edema. NEUROLOGICAL: Gross neurological examination did not reveal any focal deficits. SKIN: No rashes. No petechiae - Labs CBC & Chem 7: 06/13/19 04:50 06/13/19 04:50 Labs: Abnormal Lab Results - Last 24 Hours (Table) 06/13/19 06/13/19 06/13/19 Range/Units 04:50 04:50 06:30 RBC 4.17 L (4.30-5.90) m/uL Hgb 11.7 L (13.0-17.5) gm/dL Hct 38.7 L (39.0-53.0) % MCHC 30.3 L (31.0-37.0) g/dL Lymphocytes # 0.5 L (1.0-4.8) k/uL Sodium 134 L (137-145) mmol/L BUN 37 H (9-20) mg/dL Glucose 59 L (74-99) mg/dL POC Glucose (mg/dL) 60 L (75-99) mg/dL Calcium 7.7 L (8.4-10.2) mg/dL Delta Bilirubin 0.4 H (0.0-0.2) mg/dL ALT 71 H (4-49) U/L Total Protein 5.1 L (6.3-8.2) g/dL Albumin 2.6 L (3.5-5.0) g/dL 06/13/19 06/13/19 06/13/19 Range/Units 06:55 12:12 12:32 RBC (4.30-5.90) m/uL Hgb (13.0-17.5) gm/dL Hct (39.0-53.0) % MCHC (31.0-37.0) g/dL Lymphocytes # (1.0-4.8) k/uL Sodium (137-145) mmol/L BUN (9-20) mg/dL Glucose (74-99) mg/dL POC Glucose (mg/dL) 134 H 69 L 116 H (75-99) mg/dL Calcium (8.4-10.2) mg/dL Delta Bilirubin (0.0-0.2) mg/dL ALT (4-49) U/L Total Protein (6.3-8.2) g/dL Albumin (3.5-5.0) g/dL Assessment and Plan Assessment: Acute COPD exacerbation Community acquired pneumonia Hyponatremia, and hyperkalemia, improved Acute hypoxic respiratory failure Non-small lung cancer status post right lower lobe resection History of prostate cancer status post prostatectomy pulmonary embolism on eliqius Hypertension Hyperlipidemia Deep venous thrombosis this is a pleasant 84 years old male who presents with pneumonia and COPD. Continue with antibiotics Levaquin. Continue with broncho-dilator and oxygen. Follow-up recommendation by Pulmonary/critical care consult Labs and medication were reviewed.. Continue same treatment. Continue with symptomatic treatment. Resume home medication. Monitor lytes and vitals. DVT and GI prophylaxis. Further recommendations of the clinical course of the patient DVT prophylaxis: Eliquis GI Prophylaxis: Pepcid Patient is DO NOT RESUSCITATE Prognosis is guarded
[2019-06-13 16:52] LABS: Glucose,Whole Blood 79 mg/dL (75-99)
[2019-06-13 17:53] LABS: Glucose,Whole Blood 89 mg/dL (75-99)
[2019-06-13] MEDS: MONTELUKAST 10 MG TAB PO SCH (19:52)
[2019-06-13] MEDS: LATANOPROST 0.005% OPHTH DROPS 2.5 ML BTL BOTH EYES SCH (19:57)
[2019-06-13] MEDS: IPRATROPIUM-ALBUTEROL 3 ML NEB INHALATION PRN (23:23)
[2019-06-14 00:11] LABS: Glucose,Whole Blood 91 mg/dL (75-99)
[2019-06-14] MEDS: DEXTROSE 5%-0.9% NACL 1,000 ML IV SCH ×2 (03:41→15:07)
[2019-06-14 05:19] LABS: Albumin 2.5 g/dL (3.5-5.0); Bilirubin, Delta 0.4 mg/dL (0.0-0.2); Bilirubin,Unconjugated 0.3 mg/dL (0.0-1.1); Calcium 7.6 mg/dL (8.4-10.2); Potassium 4.5 mmol/L (3.5-5.1); Total Bilirubin 0.7 mg/dL (0.2-1.3); Total Protein 5.1 g/dL (6.3-8.2)
[2019-06-14 05:53] LABS: Basophils # (A) 0.1 k/uL (0-0.2); Basophils % (A) 1 %; Eosinophils % (A) 1 %; HCT 37.9 % (39.0-53.0); HGB 11.3 gm/dL (13.0-17.5); Hypochromasia Marked; Lymphocytes # (A) 0.7 k/uL (1.0-4.8); Lymphocytes % (A) 17 %; MCHC 29.8 g/dL (31.0-37.0); MCV 93.9 fL (80.0-100.0); Mean Platelet Volume 7.4; Monocytes # (A) 0.4 k/uL (0-1.0); Monocytes % (A) 9 %; Neutrophils # (A) 2.8 k/uL (1.3-7.7); Neutrophils % (A) 68 %; Platelet Count 218 k/uL (150-450); RBC 4.03 m/uL (4.30-5.90); RDW 15.2 % (11.5-15.5); WBC 4.1 k/uL (3.8-10.6)
[2019-06-14 06:06] LABS: Glucose,Whole Blood 93 mg/dL (75-99)
--- NOTE | 2019-06-14 06:15 | XR ---
EXAMINATION TYPE: XR chest 1V portable DATE OF EXAM: 06/14/2019 HISTORY: Pneumonia, SOB. REFERENCE: Previous study dated 06/13/2019. FINDINGS: There is a bipolar pacemaker place on the left. There is left basilar airspace disease. There are small, bilateral effusions worse on the left than t he right. There is mild vascular congestion without olga edema. IMPRESSION: NO SIGNIFICANT INTERVAL CHANGE IN THE APPEARANCE OF THE CHEST.
[2019-06-14] MEDS: LABETALOL 100 MG TAB PO SCH ×2 (07:28→19:39)
[2019-06-14] MEDS: LOSARTAN 50 MG TAB PO SCH (07:28)
[2019-06-14] MEDS: SPIRONOLACTONE 25 MG TAB PO SCH (07:28)
[2019-06-14] MEDS: APIXABAN 5 MG TAB PO SCH ×2 (07:31→19:38)
[2019-06-14] MEDS ORDERED: FUROSEMIDE 10 MG/ML 4 ML VIAL IV STA (08:25)
[2019-06-14] MEDS: NITROGLYCERIN 0.2MG/HR PATCH TRANSDERM SCH (08:49)
[2019-06-14] MEDS: FAMOTIDINE 20 MG/2 ML VIAL IV SCH (08:49)
[2019-06-14] MEDS: methylPREDNISolone SOD SUCCI 40 MG/ML 1 ML VIAL IV SCH ×3 (08:49→23:48)
[2019-06-14] MEDS: TIMOLOL 0.5% OPHTH DROPS 5 ML BTL BOTH EYES SCH ×2 (08:50→20:06)
[2019-06-14] MEDS: IPRATROPIUM-ALBUTEROL 3 ML NEB INHALATION SCH ×4 (08:54→18:37)
[2019-06-14] MEDS: FORMOTEROL FUMARATE 20 MCG/2 ML NEBU INHALATION SCH ×2 (08:54→18:37)
[2019-06-14] MEDS: BUDESONIDE 1 MG/2 ML NEBU INHALATION SCH ×2 (08:54→18:37)
--- NOTE | 2019-06-14 09:39 | P.PN ---
Subjective Progress Note Date: 06/14/19 Principal diagnosis: Acute hypoxic/hypercapnic respiratory failure secondary left lower lobe infiltrate and acute exacerbation of systolic congestive heart failure This is a very pleasant 84-year-old gentleman who follows with Dr. Alberts is his primary care provider. He has a history of prostate cancer with previous prostatectomy, hyperlipidemia, hypertension, sick sinus syndrome status post permanent pacemaker insertion, previous non-small cell lung cancer with a right lower lobe resection, PE/DVT, COPD, former smoker. He presented here yesterday as a transfer from [facility] with a diagnosis of congestive heart failure and a left lower lobe pneumonia and he was not improving. He was initially admitted to the regular medical floor. Proximally 3:00 this morning the patient developed worsening respiratory distress and hypoxemia and 18 was called. He was initiated on BiPAP 14/5 and 100% FiO2 and transferred to the intensive care unit. Upon further investigation the patient is a DO NOT RESUSCITATE/DO NOT INTUBATE CODE STATUS. He is seen today in the ICU. He is currently on the BiPAP 14/5 and 65% FiO2. Blood gases were PaO2 213, pCO2 54 and a pH of 7.2 500% FiO2. His x-ray does show evidence of left lower lobe pneumonia and congestive heart failure with pulmonary vascular congestion and left pleural effusion. He is currently awake and alert. He denies any worsening shortness of breath at this time. His lungs have few scattered rhonchi, end expiratory wheeze, crackles in the posterior bases left greater than right. He is on DuoNeb inhalations, Pulmicort and Perforomist inhalations, antibiotics in the form of Levaquin. Remains anticoagulated with Eliquis. The patient is seen today 06/13/2019 in follow-up in the intensive care unit. He has remained quite BiPAP dependent. He is quite anxious when off even for a few minutes. Remains on 14/5 on 40% FiO2. 0.9 @ 100 ML's per hour. White count 6.8. Hemoglobin 11.7. Creatinine 1.12. He remains on DuoNeb inhalations, Pulmicort and Perforomist inhalations, Singulair. Currently on Levaquin. Anticoagulated with Eliquis. The patient is seen today 06/14/2019 in follow-up in the intensive care unit. He continues to be BiPAP dependent. Not making much progress. He is still maintaining O2 saturations in the 90s on 40% FiO2 with BiPAP of 14/5. He has a D5 0.9 at 75 mL per hour. White count 4.1. Hemoglobin 11.3. Sodium 136. Potassium 4.5. Creatinine 0.97. Remains on DuoNeb inhalations, Pulmicort and Perforomist inhalations, Singulair. His x-ray shows left basilar airspace disease with small bilateral effusion was worse on the left. Some mild vascular congestion without olga edema. No significant change. Objective - Vital Signs Vital signs: Vital Signs Temp 98.4 F 06/14/19 08:00 Pulse 78 06/14/19 09:12 Resp 13 06/14/19 09:00 BP 148/93 06/14/19 09:00 Pulse Ox 100 06/14/19 09:00 Intake & Output 06/13/19 06/14/19 06/14/19 18:59 06:59 18:59 Intake Total 1150 900 225 Output Total 980 665 290 Balance 170 235 -65 Weight 75.4 kg Intake: IV 700 0.9 Sodium Chloride 700 Intake, IV Titration 450 900 225 Amount Dextrose 10 % in Water 150 150 ml @ 999 mls/hr IV ONCE ONE Rx#:[id number] Dextrose 5%-0.9% NaCl 1, 300 900 225 000 ml @ 75 mls/hr IV . [id number] [facility] Rx#:[id number] Output: Urine 980 665 290 Other: Voiding Method Indwelling Catheter Indwelling Catheter Indwelling Catheter - Exam GENERAL EXAM: Alert, pleasant 84-year-old gentleman, currently on BiPAP 14/5 on 40% FiO2, fairly comfortable in no apparent distress. HEAD: Normocephalic. EYES: Normal reaction of pupils, equal size. NOSE: Clear with pink turbinates. THROAT: No erythema or exudates. NECK: No masses, no JVD. CHEST: No chest wall deformity. LUNGS: Equal air entry with crackles in the bilateral posterior bases. CVS: S1 and S2 normal with no audible murmur, regular rhythm. ABDOMEN: No hepatosplenomegaly, normal bowel sounds, no guarding or rigidity. SPINE: No scoliosis or deformity SKIN: No rashes CENTRAL NERVOUS SYSTEM: No focal deficits, tone is normal in all 4 extremities. EXTREMITIES: There is no peripheral edema. No clubbing, no cyanosis. Perip heral pulses are intact. - Labs CBC & Chem 7: 06/14/19 03:56 06/14/19 03:56 Labs: Abnormal Lab Results - Last 24 Hours (Table) 06/13/19 06/13/19 06/14/19 Range/Units 12:12 12:32 03:56 RBC 4.03 L (4.30-5.90) m/uL Hgb 11.3 L (13.0-17.5) gm/dL Hct 37.9 L (39.0-53.0) % MCHC 29.8 L (31.0-37.0) g/dL Lymphocytes # 0.7 L (1.0-4.8) k/uL Sodium (137-145) mmol/L BUN (9-20) mg/dL POC Glucose (mg/dL) 69 L 116 H (75-99) mg/dL Calcium (8.4-10.2) mg/dL Delta Bilirubin (0.0-0.2) mg/dL ALT (4-49) U/L Total Protein (6.3-8.2) g/dL Albumin (3.5-5.0) g/dL 06/14/19 Range/Units 03:56 RBC (4.30-5.90) m/uL Hgb (13.0-17.5) gm/dL Hct (39.0-53.0) % MCHC (31.0-37.0) g/dL Lymphocytes # (1.0-4.8) k/uL Sodium 136 L (137-145) mmol/L BUN 24 H (9-20) mg/dL POC Glucose (mg/dL) (75-99) mg/dL Calcium 7.6 L (8.4-10.2) mg/dL Delta Bilirubin 0.4 H (0.0-0.2) mg/dL ALT 85 H (4-49) U/L Total Protein 5.1 L (6.3-8.2) g/dL Albumin 2.5 L (3.5-5.0) g/dL Assessment and Plan Assessment: 1 Acute hypoxic/hypercapnic respiratory failure secondary to a left lower lobe infiltrate possible community-acquired pneumonia, acute exacerbation of systolic congestive heart failure and acute exacerbation of COPD has been BiPAP dependent since the ICU. 2 History of non-small cell lung cancer with previous right lower lobe resection 3 Hypertension 4 Hyperlipidemia 5 Permanent pacemaker implantation 6 History of prostate cancer status post prostatectomy 7 History of previous tobacco dependence Plan: The patient was seen and evaluated by Dr. Palacio. Chest x-ray and labs reviewed. He has remained quite BiPAP dependent the past 48 hours. We'll continue with BiPAP support 14/5 and 40% FiO2 as tolerated. Continue with Levaquin. Continue bronchodilators. We will go ahead and add IV Solu-Medrol despite the patient's steroid sensitivity. We also added Lasix 40 mg IVP 1 today. The patient is a DO NOT RESUSCITATE/DO NOT INTUBATE CODE STATUS. Dr. Palacio spoke at length with the patient's daughter yesterday. Hospice consult was placed. He also spoke with the patient's grandson who is present at the bedside today. We'll continue supportive care for now until further direction from the family. We will continue to follow and make further recommendations based on his clinical status. I, the cosigning physician, performed a history & physical examination of the patient. Lungs sounds scattered crackles in posterior bases left greater than right. Maintaining good O2 saturations in the 90s on BiPAP 14/5 and 40% FiO2. I discussed the assessment and plan of care with my nurse practitioner, Radha Castillo. I attest to the above consultation as dictated by her.
[2019-06-14] MEDS: DORZOLAMIDE HCL 2% DROPS 10 ML BTL BOTH EYES SCH ×2 (09:40→20:06)
[2019-06-14 11:45] LABS: Glucose,Whole Blood 117 mg/dL (75-99)
--- NOTE | 2019-06-14 12:13 | P.PN ---
Subjective this is a pleasant 84 years old male with past medical history of lung and prostate cancer, COPD, deep venous thrombosis, hyperlipidemia, hypertension, and small lung cancer status post right lower lobe resection, prostatectomy, history of pacemaker Originally patient was admitted electively [facility] for pulmonary embolism and from there he went to rehab before he was transferred to [facility] with a breathing difficulty. Patient was transferred from [facility], he was admitted there for over 3 days for possible pneumonia and COPD exacerbation and he was getting antibiotics, breathing treatments and steroids however he did not improve so decided to transfer him to [facility] for pulmonary evaluation and possible bronchoscopy as and his CAT scan of the chest to rule out PE which was negative shows right intra-abdominal secretions with 7 mm lesion noted in the right lower lobe bronchi Labs from [place] noted including sodium 1:30, potassium 4.6, creatinine 0.9, WBC 7.19, hemoglobin 10.8, platelets 262. Chest x-ray: Possible retrocardiac infiltrate per radiologist CT of the chest to rule out PE left pleural effusion, small 1 no pneumothorax soft tissue density inside the bronchi on the right lower lobe cannot exclude secretion or endo-bronchial lesion maximum diameter of 7 mm. Air bronchograms of the posterior portion of the left lung base committing airspace disease 06/12/2019 Patient got into respiratory distress in the morning and he was transferred to the ICU he was placed on BiPAP since then. His potassium was high, at 6.2, he presented protocol and his potassium came down to 4.7, blood pressure was high initially as per staff his systolic more than 118, however came down later on with systolic been in 60s and 70s. Patient received IV fluid, currently his blood pressure is 112/60. Patient currently on Levaquin and Eliquis, steroids just not been given because of his sensitivity. 06/13/2019 Patient remains in the ICU, he is dependent on BiPAP for breathing, although he is awake and alert however pulmonary/critical care team are following the patient closely. His breathing rate at 26 currently, blood pressure is 145/82. Labs reviewed in the looks stable however sugar on the low side couple times, we going to change his normal saline to D5 normal saline at 75 mL/h. Discussed with family at bedside about his compromised respiratory condition, and taken to discuss it further with pulmonary team as they mentioned hospice care as well 06/14/2019 Patient ICU, he still on BiPAP machine, pulmonary/critical care team are following the patient closely. Patient will also show a blood pressure 152/96, oxygen saturation 97% and heart rate is about 80 with a breathing rate about 15. CBC looks his stable with WBC coming down to 4.1K, hemoglobin 11.3. BMP is unremarkable with sodium 136, creatinine 0.9, sugar is running in 90s-117. Liver enzymes mildly elevated. Magnesium 2.0. Repeat chest x-ray showing no significant change from today.. He remains on Levaquin for now Objective - Vital Signs Vital signs: Vital Signs Temp 98.4 F 06/14/19 08:00 Pulse 80 06/14/19 11:00 Resp 15 06/14/19 11:00 BP 152/96 06/14/19 11:00 Pulse Ox 97 06/14/19 11:00 Intake & Output 06/13/19 06/14/19 06/14/19 18:59 06:59 18:59 Intake Total 1150 900 375 Output Total 918 493 5586 Balance 170 235 -1345 Weight 75.4 kg Intake: IV 700 0.9 Sodium Chloride 700 Intake, IV Titration 450 900 375 Amount Dextrose 10 % in Water 150 150 ml @ 999 mls/hr IV ONCE ONE Rx#:[id number] Dextrose 5%-0.9% NaCl 1, 300 900 375 000 ml @ 75 mls/hr IV . [id number] [facility] Rx#:[id number] Output: Urine 869 299 7879 Other: Voiding Method Indwelling Catheter Indwelling Catheter Indwelling Catheter - Exam -GENERAL: The patient is alert and oriented x3, is on BiPAP . HEENT: Pupils are round and equally reacting to light. EOMI. No scleral icterus. No conjunctival pallor. Normocephalic, atraumatic. No pharyngeal erythema. No thyromegaly. CARDIOVASCULAR: S1 and S2 present. No murmurs, rubs, or gallops. -PULMONARY: Decreased breath sounds especially in the right side, harsh breath sounds bilaterally, scattered wheezing ABDOMEN: Soft, nontender, nondistended, normoactive bowel sounds. No palpable organomegaly. MUSCULOSKELETAL: No joint swelling or deformity. EXTREMITIES: No cyanosis, clubbing, or pedal edema. NEUROLOGICAL: Gross neurological examination did not reveal any focal deficits. SKIN: No rashes. No petechiae - Labs CBC & Chem 7: 06/14/19 03:56 06/14/19 03:56 Labs: Abnormal Lab Results - Last 24 Hours (Table) 06/13/19 06/13/19 06/14/19 Range/Units 12:12 12:32 03:56 RBC 4.03 L (4.30-5.90) m/uL Hgb 11.3 L (13.0-17.5) gm/dL Hct 37.9 L (39.0-53.0) % MCHC 29.8 L (31.0-37.0) g/dL Lymphocytes # 0.7 L (1.0-4.8) k/uL Sodium (137-145) mmol/L BUN (9-20) mg/dL POC Glucose (mg/dL) 69 L 116 H (75-99) mg/dL Calcium (8.4-10.2) mg/dL Delta Bilirubin (0.0-0.2) mg/dL ALT (4-49) U/L Total Protein (6.3-8.2) g/dL Albumin (3.5-5.0) g/dL 06/14/19 06/14/19 Range/Units 03:56 11:44 RBC (4.30-5.90) m/uL Hgb (13.0-17.5) gm/dL Hct (39.0-53.0) % MCHC (31.0-37.0) g/dL Lymphocytes # (1.0-4.8) k/uL Sodium 136 L (137-145) mmol/L BUN 24 H (9-20) mg/dL POC Glucose (mg/dL) 117 H (75-99) mg/dL Calcium 7.6 L (8.4-10.2) mg/dL Delta Bilirubin 0.4 H (0.0-0.2) mg/dL ALT 85 H (4-49) U/L Total Protein 5.1 L (6.3-8.2) g/dL Albumin 2.5 L (3.5-5.0) g/dL Assessment and Plan Assessment: Acute COPD exacerbation Community acquired pneumonia Hyponatremia, and hyperkalemia, improved Acute hypoxic respiratory failure, remains on BiPAP Non-small lung cancer status post right lower lobe resection History of prostate cancer status post prostatectomy pulmonary embolism on eliqius Hypertension Hyperlipidemia Deep venous thrombosis this is a pleasant 84 years old male who presents with pneumonia and COPD. Continue with antibiotics Levaquin. Continue with broncho-dilator and oxygen. Patient is followed closely by pulmonary service. Labs and medication were reviewed.. Continue same treatment. Continue with symptomatic treatment. Resume home medication. Monitor lytes and vitals. DVT and GI prophylaxis. Further recommendations of the clinical course of the patient DVT prophylaxis: Eliquis GI Prophylaxis: Pepcid Patient is DO NOT RESUSCITATE Prognosis is guarded
[2019-06-14] MEDS: LEVOFLOXACIN 500MG-D5W PMX 500 MG in DEXTROSE/WATER 1 100ML.BAG IVPB SCH (15:07)
[2019-06-14] MEDS: MONTELUKAST 10 MG TAB PO SCH (19:38)
[2019-06-14] MEDS: LATANOPROST 0.005% OPHTH DROPS 2.5 ML BTL BOTH EYES SCH (20:06)
[2019-06-14 23:58] LABS: Glucose,Whole Blood 150 mg/dL (75-99)
[2019-06-15] MEDS: DEXTROSE 5%-0.9% NACL 1,000 ML IV SCH (04:35)
[2019-06-15] MEDS: SPIRONOLACTONE 25 MG TAB PO SCH (05:12)
[2019-06-15] MEDS: LABETALOL 100 MG TAB PO SCH ×2 (05:12→20:07)
[2019-06-15] MEDS: LOSARTAN 50 MG TAB PO SCH (05:12)
[2019-06-15] MEDS ORDERED: MORPHINE SULFATE 4 MG/ML SYRINGE IVP PRN (06:53)
[2019-06-15] MEDS: FORMOTEROL FUMARATE 20 MCG/2 ML NEBU INHALATION SCH ×2 (07:19→20:21)
[2019-06-15] MEDS: BUDESONIDE 1 MG/2 ML NEBU INHALATION SCH ×2 (07:19→20:21)
[2019-06-15] MEDS: IPRATROPIUM-ALBUTEROL 3 ML NEB INHALATION SCH ×4 (07:20→20:21)
--- NOTE | 2019-06-15 08:06 | XR ---
EXAMINATION TYPE: XR chest 1V portable DATE OF EXAM: 06/15/2019 COMPARISON: Prior chest 06/14/2019 HISTORY: COPD, pneumonia TECHNIQUE: Single frontal view of the chest is obtained. FINDINGS: Findings are similar to prior exam. Retrocardiac density obscures the left hemidiaphragm, there is blunting of the costophrenic angles. Heart is enlarged. Aorta is dense and ectatic. Apical p leural thickening seen again on the right. Mixed interstitial and airspace disease suspected in the p erihilar locations. IMPRESSION: Correlate for congestive heart failure. Pneumonia not excluded, it may be pleural effusi on.
[2019-06-15] MEDS: APIXABAN 5 MG TAB PO SCH ×2 (08:18→20:06)
[2019-06-15 08:50] LABS: Basophils % (A) 1 %; Eosinophils % (A) 0 %; HCT 40.7 % (39.0-53.0); HGB 12.2 gm/dL (13.0-17.5); Hypochromasia Moderate; Lymphocytes # (A) 0.5 k/uL (1.0-4.8); Lymphocytes % (A) 14 %; MCH 27.8 pg (25.0-35.0); MCHC 30.1 g/dL (31.0-37.0); MCV 92.4 fL (80.0-100.0); Mean Platelet Volume 6.9; Monocytes # (A) 0.2 k/uL (0-1.0); Monocytes % (A) 5 %; Neutrophils % (A) 76 %; Platelet Count 255 k/uL (150-450); RDW 15.1 % (11.5-15.5); WBC 3.9 k/uL (3.8-10.6)
[2019-06-15] MEDS: methylPREDNISolone SOD SUCCI 40 MG/ML 1 ML VIAL IV SCH ×2 (08:52→15:44)
[2019-06-15] MEDS: DORZOLAMIDE HCL 2% DROPS 10 ML BTL BOTH EYES SCH ×2 (08:53→20:07)
[2019-06-15] MEDS: NITROGLYCERIN 0.2MG/HR PATCH TRANSDERM SCH (08:55)
[2019-06-15] MEDS: FAMOTIDINE 20 MG/2 ML VIAL IV SCH (08:55)
[2019-06-15 09:01] LABS: ALT 78 U/L (4-49); AST 37 U/L (17-59); African American GFR (CKD) >90 (>60 ml/min/1.73 sqM); Albumin 2.6 g/dL (3.5-5.0); Alkaline Phosphatase 74 U/L (38-126); Anion Gap 3 mmol/L; Bilirubin, Delta 0.4 mg/dL (0.0-0.2); Bilirubin,Unconjugated 0.5 mg/dL (0.0-1.1); Blood Urea Nitrogen 22 mg/dL (9-20); Calcium 7.8 mg/dL (8.4-10.2); Carbon Dioxide 32 mmol/L (22-30); Chloride 103 mmol/L (98-107); Glucose 182 mg/dL (74-99); Non-African American GFR(CKD) 81 (>60 ml/min/1.73 sqM); Potassium 4.7 mmol/L (3.5-5.1); Sodium 138 mmol/L (137-145); Total Bilirubin 0.9 mg/dL (0.2-1.3); Total Protein 5.4 g/dL (6.3-8.2)
[2019-06-15] MEDS: TIMOLOL 0.5% OPHTH DROPS 5 ML BTL BOTH EYES SCH ×2 (09:02→20:08)
[2019-06-15] MEDS ORDERED: FUROSEMIDE 10 MG/ML 4 ML VIAL IV STA (10:08)
--- NOTE | 2019-06-15 10:12 | P.PN ---
Subjective Progress Note Date: 06/15/19 In is being seen in follow-up on 06/15/2019. This morning he is on BiPAP at a pressure of 15/5 cm of water with an FiO2 of 40%. He seems to have struggling with his breathing. Yesterday he was given a chance off the BiPAP which he had a hard time tolerating and based on that he was placed on a BiPAP overnight. The chest x-ray from today shows improvement in the left lower lobe pulmonary infiltrates. The patient is known to have COPD with a recent FEV1 of 46% based on her PFT that was done in 2016. He also has a history of non-small cell lung cancer in these undergone a robotic-assisted left lower lobe resection. No evidence of any recurrence. The CAT scan that was done in the hospital showed no evidence of any tumor recurrence. There was a 7 mm nodule which is obviously a nonspecific finding that was seen on the CAT scan of the chest and this was in the right lower lobe area. Note that the patient also has multiple comorbidities. He has congestion heart failure and he has a pacemaker in place. He has previous history of DVT. Other comorbidities include hypertension and hyperlipidemia previous prostatectomy for prostate cancer. The patient is considering comfort care measures/hospice. Apparently some discussion of taken place between the family and doctors Hakeem in this regard and final decision has not been made yet. The white cell count was down to 3.9. Hemoglobin stable at 12.2. The rest of the blood work and electrodes are all within normal limits. No chest pain. No swelling in lower extremities bilaterally. Objective - Vital Signs Vital signs: Vital Signs Temp 97.3 F L 06/15/19 08:00 Pulse 70 06/15/19 09:00 Resp 20 06/15/19 09:00 BP 145/91 06/15/19 09:00 Pulse Ox 99 06/15/19 09:00 Intake & Output 06/14/19 06/15/19 06/15/19 18:59 06:59 18:59 Intake Total 1075 825 225 Output Total 2993 543 165 Balance -1918 282 60 Weight 75.8 kg Intake: IV 100 150 Dextrose 5%-0.9% NaCl 1, 150 000 ml @ 75 mls/hr IV . [id number] [facility] Rx#:[id number] Levofloxacin 500Mg-D5w 100 Pmx 500 mg In Dextrose/ Water 1 100ml.bag @ 100 mls/hr IVPB Q24H [facility] Rx#: [id number] Intake, IV Titration 975 825 75 Amount Dextrose 5%-0.9% NaCl 1, 900 825 75 000 ml @ 75 mls/hr IV . [id number] [facility] Rx#:[id number] Levofloxacin 500Mg-D5w 75 Pmx 500 mg In Dextrose/ Water 1 100ml.bag @ 100 mls/hr IVPB Q24H [facility] Rx#: [id number] Output: Urine 2993 543 165 Other: Voiding Method Indwelling Catheter Indwelling Catheter Indwelling Catheter - Exam In is being seen in follow-up on 06/15/2019. This morning he is on BiPAP at a pressure of 15/5 cm of water with an FiO2 of 40%. He seems to have struggling with his breathing. Yesterday he was given a chance off the BiPAP which he had a hard time tolerating and based on that he was placed on a BiPAP overnight. The chest x-ray from today shows improvement in the left lower lobe pulmonary infiltrates. The patient is known to have COPD with a recent I 1 of 46% based on her PFT that was done in 2016. He also has a history of non-small cell lung cancer in these undergone a robotic-assisted left lower lobe resection. No evidence of any recurrence. The CAT scan that was done in the hospital showed no evidence of any tumor recurrence. There was a 7 mm nodule which is obviously a nonspecific finding that was seen on the CAT scan of the chest and this was in the right lower lobe area. Note that the patient also has multiple comorbidities. He has congestion heart failure and he has a pacemaker in place. He has previous history of DVT. Other comorbidities include hypertension and hyperlipidemia previous prostatectomy for prostate cancer. The patient is considering comfort care measures/hospice. Apparently some discussion of taken place between the family and doctors [place]akeem in this regard and final decision has not been made yet. The white cell count was down to 3.9. Hemoglobin stable at 12.2. The rest of the blood work and electrodes are all within normal limits. - Labs CBC & Chem 7: 06/15/19 08:19 06/15/19 08:19 Labs: Abnormal Lab Results - Last 24 Hours (Table) 06/14/19 06/14/19 06/15/19 Range/Units 11:44 23:56 08:19 Hgb (13.0-17.5) gm/dL MCHC (31.0-37.0) g/dL Lymphocytes # (1.0-4.8) k/uL Carbon Dioxide 32 H (22-30) mmol/L BUN 22 H (9-20) mg/dL Glucose 182 H (74-99) mg/dL POC Glucose (mg/dL) 117 H 150 H (75-99) mg/dL Calcium 7.8 L (8.4-10.2) mg/dL Delta Bilirubin 0.4 H (0.0-0.2) mg/dL ALT 78 H (4-49) U/L Total Protein 5.4 L (6.3-8.2) g/dL Albumin 2.6 L (3.5-5.0) g/dL 06/15/19 Range/Units 08:19 Hgb 12.2 L (13.0-17.5) gm/dL MCHC 30.1 L (31.0-37.0) g/dL Lymphocytes # 0.5 L (1.0-4.8) k/uL Carbon Dioxide (22-30) mmol/L BUN (9-20) mg/dL Glucose (74-99) mg/dL POC Glucose (mg/dL) (75-99) mg/dL Calcium (8.4-10.2) mg/dL Delta Bilirubin (0.0-0.2) mg/dL ALT (4-49) U/L Total Protein (6.3-8.2) g/dL Albumin (3.5-5.0) g/dL Assessment and Plan Plan: 1 Acute hypoxic/hypercapnic respiratory failure secondary to a left lower lobe infiltrate possible community-acquired pneumonia, acute exacerbation of systolic congestive heart failure and acute exacerbation of COPD 2 History of non-small cell lung cancer with previous right lower lobe resection 3 Hypertension 4 Hyperlipidemia 5 Permanent pacemaker implantation 6 History of prostate cancer status post prostatectomy 7 History of previous tobacco dependence Plan We'll take the patient off the BiPAP and evaluate his ability to breathe off the BiPAP on high flow oxygen and monitor the patient closely continue bronchodilators continued IV Solu-Medrol given a dose of Lasix 40 mg IV push Repeat echocardiogram We are asked the CAT scan to be downloaded for us to review from [facility]. we'll continue to follow. Final decision on course status and goals of treatment will be established after meeting with the family.
[2019-06-15 12:17] LABS: Glucose,Whole Blood 187 mg/dL (75-99)
[2019-06-15] MEDS: LEVOFLOXACIN 500MG-D5W PMX 500 MG in DEXTROSE/WATER 1 100ML.BAG IVPB SCH (15:44)
[2019-06-15 18:19] LABS: Glucose,Whole Blood 265 mg/dL (75-99)
[2019-06-15] MEDS: INSULIN ASPART (NovoLOG) 100 UNIT/ML VIAL SQ SCH ×2 (18:29→20:20)
[2019-06-15] MEDS: SODIUM CHLORIDE 0.9% 1,000 ML IV SCH (18:35)
[2019-06-15] MEDS: MONTELUKAST 10 MG TAB PO SCH (20:06)
[2019-06-15] MEDS: PRAVASTATIN SODIUM 80 MG TAB PO SCH (20:07)
[2019-06-15] MEDS: LATANOPROST 0.005% OPHTH DROPS 2.5 ML BTL BOTH EYES SCH (20:07)
[2019-06-15 20:15] LABS: Glucose,Whole Blood 232 mg/dL (75-99)
[2019-06-15] MEDS ORDERED: INSULIN ASPART (NovoLOG) 100 UNIT/ML VIAL SQ SCH (21:00)
[2019-06-16] MEDS: methylPREDNISolone SOD SUCCI 40 MG/ML 1 ML VIAL IV SCH ×4 (00:40→22:50)
[2019-06-16] MEDS: LABETALOL 100 MG TAB PO SCH ×2 (06:34→20:26)
[2019-06-16] MEDS: LOSARTAN 50 MG TAB PO SCH (06:34)
[2019-06-16] MEDS: SPIRONOLACTONE 25 MG TAB PO SCH (06:34)
[2019-06-16] MEDS: INSULIN ASPART (NovoLOG) 100 UNIT/ML VIAL SQ SCH ×4 (06:38→20:21)
[2019-06-16 06:39] LABS: Glucose,Whole Blood 119 mg/dL (75-99)
[2019-06-16] MEDS: FORMOTEROL FUMARATE 20 MCG/2 ML NEBU INHALATION SCH ×2 (07:44→21:06)
[2019-06-16] MEDS: BUDESONIDE 1 MG/2 ML NEBU INHALATION SCH ×2 (07:44→21:06)
[2019-06-16] MEDS: IPRATROPIUM-ALBUTEROL 3 ML NEB INHALATION SCH ×4 (07:45→21:06)
--- NOTE | 2019-06-16 07:50 | P.PN ---
Subjective Progress Note Date: 06/16/19 On today's evaluation of 06/08/2019 on seeing the patient for a follow-up. Noted the patient has been off the BiPAP for the past 24 hours and currently is on oxygen at 4 L. He did not need to use the BiPAP overnight. 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 No significant complaints otherwise for now. The chest x-ray from today showing a small left-sided pleural effusion. The chest x-ray is very much stable compared to yesterday. No chest pain. No altered mentation. He has a pacemaker in place. He is known to have hypertension and hyperlipidemia previous history of prostate cancer post- prostatectomy. The patient also had history of non-small cell lung cancer in his undergone previous left lower lobe resection. He is awake and alert. No complaints for today. No swelling lower extremities. He was given a dose of Lasix yesterday and the net fluid balance is -1.2 L over the past 24 hours. A repeat echocardiogram also ordered for yesterday. I had a lengthy discussion with the patient's family. He is currently not interested in hospice care as the patient is recovering. Unfortunately, he has had [id number] pneumonias which has been an ongoing concern for the family. Objective - Vital Signs Vital signs: Vital Signs Temp 97.4 F L 06/16/19 04:00 Pulse 70 06/16/19 07:00 Resp 8 L 06/16/19 07:00 BP 146/91 06/16/19 07:00 Pulse Ox 97 06/16/19 07:00 Intake & Output 06/15/19 06/16/19 06/16/19 18:59 06:59 18:59 Intake Total 790 330 20 Output Total 1650 675 50 Balance -860 -345 -30 Weight 75.2 kg Intake: IV 715 240 20 Dextrose 5%-0.9% NaCl 1, 615 000 ml @ 40 mls/hr IV . Q24H [facility] Rx#:[id number] Levofloxacin 500Mg-D5w 100 Pmx 500 mg In Dextrose/ Water 1 100ml.bag @ 100 mls/hr IVPB Q24H [facility] Rx#: [id number] Sodium Chloride 0.9% 1, 240 20 000 ml @ 20 mls/hr IV . Q24H [facility] Rx#:[id number] Intake, IV Titration 75 Amount Dextrose 5%-0.9% NaCl 1, 75 000 ml @ 40 mls/hr IV . Q24H [facility] Rx#:[id number] Oral 90 Output: Urine 1650 675 50 Other: Voiding Method Indwelling Catheter Indwelling Catheter - Exam In is being seen in follow-up on 06/15/2019. This morning he is on BiPAP at a pressure of 15/5 cm of water with an FiO2 of 40%. He seems to have struggling with his breathing. Yesterday he was given a chance off the BiPAP which he had a hard time tolerating and based on that he was placed on a BiPAP overnight. The chest x-ray from today shows improvement in the left lower lobe pulmonary infiltrates. The patient is known to have COPD with a recent I 1 of 46% based on her PFT that was done in 2015. He also has a history of non-small cell lung cancer in these undergone a robotic-assisted left lower lobe resection. No e vidence of any recurrence. The CAT scan that was done in the hospital showed no evidence of any tumor recurrence. There was a 7 mm nodule which is obviously a nonspecific finding that was seen on the CAT scan of the chest and this was in the right lower lobe area. Note that the patient also has multiple comorbidities. He has congestion heart failure and he has a pacemaker in place. He has previous history of DVT. Other comorbidities include hypertension and hyperlipidemia previous prostatectomy for prostate cancer. The patient is considering comfort care measures/hospice. Apparently some discussion of taken place between the family and doctors [place] in this regard and final decision has not been made yet. The white cell count was down to 3.9. Hemoglobin stable at 12.2. The rest of the blood work and electrodes are all within normal limits. - Labs CBC & Chem 7: 06/15/19 08:19 06/15/19 08:19 Labs: Abnormal Lab Results - Last 24 Hours (Table) 06/15/19 06/15/19 06/15/19 Range/Units 08:19 08:19 12:16 Hgb 12.2 L (13.0-17.5) gm/dL MCHC 30.1 L (31.0-37.0) g/dL Lymphocytes # 0.5 L (1.0-4.8) k/uL Carbon Dioxide 32 H (22-30) mmol/L BUN 22 H (9-20) mg/dL Glucose 182 H (74-99) mg/dL POC Glucose (mg/dL) 187 H (75-99) mg/dL Calcium 7.8 L (8.4-10.2) mg/dL Delta Bilirubin 0.4 H (0.0-0.2) mg/dL ALT 78 H (4-49) U/L Total Protein 5.4 L (6.3-8.2) g/dL Albumin 2.6 L (3.5-5.0) g/dL 06/15/19 06/15/19 06/16/19 Range/Units 18:17 20:14 06:37 Hgb (13.0-17.5) gm/dL MCHC (31.0-37.0) g/dL Lymphocytes # (1.0-4.8) k/uL Carbon Dioxide (22-30) mmol/L BUN (9-20) mg/dL Glucose (74-99) mg/dL POC Glucose (mg/dL) 265 H 232 H 119 H (75-99) mg/dL Calcium (8.4-10.2) mg/dL Delta Bilirubin (0.0-0.2) mg/dL ALT (4-49) U/L Total Protein (6.3-8.2) g/dL Albumin (3.5-5.0) g/dL Assessment and Plan Plan: 1 Acute hypoxic/hypercapnic respiratory failure secondary to a left lower lobe infiltrate possible community-acquired pneumonia, acute exacerbation of systolic congestive heart failure and acute exacerbation of COPD. The patient is clinically improved. The patient is currently off the BiPAP. The patient is on oxygen which is ranging between 4 and 5 L I think this can be further weaned off. This morning, we cut him down to 3 L. 2 History of non-small cell lung cancer with previous right lower lobe resection. The patient has a tiny right lower nodule measuring 7 mm in size peripherally based on the most recent CAT scan of the chest. He also has a small left-sided pleural effusion. 3 Hypertension 4 Hyperlipidemia 5 Permanent pacemaker implantation 6 History of prostate cancer status post prostatectomy 7 History of previous tobacco dependence Plan The patient is off the BiPAP and gradually wean down the FiO2 continue bronchodilators continued IV Solu-Medrol given a dose of Lasix 20 mg IV push Awaiting the results of the echocardiogram CAT scan to be downloaded for us to review from [facility]. I reviewed the films and I saw that there is a 7 mm nodule in the right lower area. There is also small left-sided pleural effusion in addition to background COPD. Some nonspecific mediastinal lymph nodes also seen. we'll continue to follow., Involve physical therapy. Encourage activity as tolerated. Set him up on a chair. We'll continue to follow.
[2019-06-16] MEDS ORDERED: FUROSEMIDE 10 MG/ML 2 ML VIAL IV ONE (07:51)
--- NOTE | 2019-06-16 08:06 | XR ---
EXAMINATION TYPE: XR chest 1V portable DATE OF EXAM: 06/16/2019 COMPARISON: Prior chest x-ray 06/15/2019 HISTORY: COPD TECHNIQUE: Single frontal view of the chest is obtained. FINDINGS: Generator is present in the left pectoral region, there are leads in the right atrium and ventricle. Heart is enlarged. Retrocardiac density obscures the left hemidiaphragm as on prior exam. There is no evident pneumothorax. Apical pleural thickening on the right is again seen. Aorta is dens e. Prominent lung volumes consistent with underlying emphysema. Minimal subsegmental right sided basi lar atelectasis suspected. IMPRESSION: Findings are stable. Probable left greater than right lower lobe atelectasis versus pneu monia, associated effusion. Cardiomegaly.
[2019-06-16 08:34] LABS: HCT 40.7 % (39.0-53.0); HGB 12.2 gm/dL (13.0-17.5); Hypochromasia Moderate; MCH 27.9 pg (25.0-35.0); Mean Platelet Volume 7.1; Platelet Count 240 k/uL (150-450); RBC 4.37 m/uL (4.30-5.90); RDW 15.4 % (11.5-15.5)
[2019-06-16] MEDS: NITROGLYCERIN 0.2MG/HR PATCH TRANSDERM SCH (08:48)
[2019-06-16] MEDS: APIXABAN 5 MG TAB PO SCH ×2 (08:48→20:25)
[2019-06-16] MEDS: FAMOTIDINE 20 MG/2 ML VIAL IV SCH (08:48)
[2019-06-16] MEDS: DORZOLAMIDE HCL 2% DROPS 10 ML BTL BOTH EYES SCH ×2 (08:49→20:27)
[2019-06-16] MEDS: TIMOLOL 0.5% OPHTH DROPS 5 ML BTL BOTH EYES SCH ×2 (08:49→20:27)
[2019-06-16 08:59] LABS: African American GFR (CKD) >90 (>60 ml/min/1.73 sqM); Anion Gap 3 mmol/L; Blood Urea Nitrogen 29 mg/dL (9-20); Carbon Dioxide 34 mmol/L (22-30); Chloride 99 mmol/L (98-107); Glucose 121 mg/dL (74-99); Non-African American GFR(CKD) 80 (>60 ml/min/1.73 sqM); Potassium 4.4 mmol/L (3.5-5.1); Sodium 136 mmol/L (137-145)
--- NOTE | 2019-06-16 12:01 | ECHOF ---
Referral Reason:chf MEASUREMENTS -------- HEIGHT: 170.2 cm WEIGHT: 75.7 kg BP: 131/84 RVIDd: 3.7 cm (< 3.3) IVSd: 1.1 cm (0.6 - 1.1) LVIDd: 5.9 cm (3.9 - 5.3) LVPWd: 1.1 cm (0.6 - 1.1) IVSs: 1.4 cm LVIDs: 4.4 cm LVPWs: 1.1 cm LAESV Index (A-L): 45.22 ml/m Ao Diam: 4.1 cm (2.0 - 3.7) MV EXCURSION: 9.734 mm (> 18.000) MV EF SLOPE: 46 mm/s (70 - 150) EPSS: 0.9 cm MV E Esau: 1.45 m/s MV DecT: 94 ms MV A Esau: 0.23 m/s MV E/A Ratio: 9.23 RAP: 5.00 mmHg RVSP: 28.15 mmHg FINDINGS -------- Paced rhythm. This was a techncally difficult study with suboptimal views, , Lumason utilized for enhancement of im ages. Left ventricular wall thickness is normal. Overall left ventricular systolic function is severely i mpaired with, an EF between 20 - 25 %. Mid anterior LV wall motion is hypokinetic. Mid anterosep samira LV wall motion is hypokinetic. Apical anterior LV wall motion is hypokinetic. Apical septum LV wall motion is hypokinetic. findings consistent with ischemic cardiac myopathy. The right ventricle is normal in size. The left atrium is markedly dilated. LA is severely dilated >40 ml/m2 The right atrial size is normal. 5.0mg OF Lumason UTLIZED: 2 OR MORE WALL SEGMENTS NOT VISUALIZED. There is mild aortic valve sclerosis. There is no evidence of aortic regurgitation. Mild mitral annular calcification present. Mild mitral regurgitation is present. Mild tricuspid regurgitation present. Right ventricular systolic pressure is normal at < 35 mmHg. There is no evidence of pulmonary hypertension. The pulmonic valve was not well visualized. The aortic root size is normal. There is no pericardial effusion. Small Pleural Effusion. CONCLUSIONS -------- 1. Paced rhythm. 2. This was a techncally difficult study with suboptimal views, , Lumason utilized for enhancement of images. 3. Left ventricular wall thickness is normal. 4. Overall left ventricular systolic function is severely impaired with, an EF between 20 - 25 %. 5. The right ventricle is normal in size. 6. The left atrium is markedly dilated. 7. LA is severely dilated >40 ml/m2 8. The right atrial size is normal. 9. 5.0mg OF Lumason UTLIZED: 2 OR MORE WALL SEGMENTS NOT VISUALIZED. 10. There is mild aortic valve sclerosis. 11. Mild mitral annular calcification present. 12. Mild mitral regurgitation is present. 13. Mild tricuspid regurgitation present. 14. Right ventricular systolic pressure is normal at < 35 mmHg. 15. There is no evidence of pulmonary hypertension. 16. The pulmonic valve was not well visualized. 17. The aortic root size is normal. 18. There is no pericardial effusion. 19. Small Pleural Effusion. PARTS CASTING MACHINE OPERATOR: Yumiko Luna RDCS
[2019-06-16 12:38] LABS: Glucose,Whole Blood 197 mg/dL (75-99)
[2019-06-16 14:03] LABS: Glucose,Whole Blood 263 mg/dL (75-99)
[2019-06-16] MEDS: LEVOFLOXACIN 500 MG TAB PO SCH (16:04)
--- NOTE | 2019-06-16 16:37 | PN ---
PROGRESS NOTE DATE OF SERVICE: 06/16/2019 This 84-year-old gentleman admitted with COPD, acute exacerbation, as well as acute community-acquired pneumonia is being closely monitored at this time. The patient was initially supposed to be hospice, but because of some improvement, hospice is being canceled at this time. Currently PT/OT is evaluating the patient for rehab potential. Otherwise, the plan will be if the patient is improving, ultimately home with home care or home PT/OT. Currently the patient is monitored in the ICU at this time. A 2D echo with Doppler showed ejection fraction about 20% to 25%. The most recent chest x-ray, which was done today and which was personally reviewed by me, showed still significant evidence of CHF with possibly some left pleural effusion also. The patient is being closely monitored. Past medical history reviewed. REVIEW OF SYSTEMS: CARDIOVASCULAR SYSTEM: As mentioned earlier. RESPIRATORY SYSTEM: As mentioned earlier. GI: No nausea, vomiting. : No dysuria or retention. NERVOUS SYSTEM: Diffusely weak. CURRENT MEDICATIONS: Reviewed. They include: 1. DuoNeb q.i.d. and p.r.n. 2. Eliquis 5 mg p.o. b.i.d. 3. Pulmicort 1 mg b.i.d. 4. Trusopt. 5. Perforomist. 6. Robitussin. 7. NovoLog. 8. Trandate. 9. Xalatan. 10.Levaquin. 11.Cozaar. 12.Solu-Medrol 40 IV q.8. 13.Narcan. 14.Pravachol. 15.Aldactone. PHYSICAL EXAMINATION: Patient is alert, oriented x2. Pulse is 79. Blood pressure 149/80, respiration 20, temperature normal, pulse ox 94% on 1 L. HEENT: Conjunctivae normal. Oral mucosa moist. NECK: No jugular venous distention. No carotid bruit. No lymph node enlargement. CARDIOVASCULAR SYSTEM: S1, S2 muffled. No S3. No S4. RESPIRATORY SYSTEM: Breath sounds diminished at the bases. A few scattered rhonchi and crackles, left more than the right. ABDOMEN: Soft, non-tender. No mass palpable. LEGS: No edema. No swelling. NERVOUS SYSTEM: Higher functions as mentioned earlier. Moves all 4 limbs. Mild diffuse weakness. LYMPHATICS: No lymph node palpable in neck, axillae or groin. SKIN: No ulcer, rash, bleeding. JOINTS: No active deforming arthropathy. LABS: WBC 8, hemoglobin 12.2. Sodium 136, calcium is 8. ASSESSMENT: 1. Shortness of breath multifactorial, with possible chronic obstructive pulmonary disease, acute exacerbation, as well as congestive heart failure, acute exacerbation, with acute on chronic systolic dysfunction, ejection fraction 20% to 25%, with acute hypoxic hypercarbic respiratory failure, status post BiPAP. 2. Community-acquired pneumonia. 3. Hyponatremia. 4. Hyperkalemia. 5. Eru-agyup-jdam lung cancer, status post right lower lobe resection. 6. History of prostate cancer, status post prostatectomy. 7. History of pulmonary embolism, on Eliquis. 8. Hypertension. 9. Hyperlipidemia. 10.History of deep vein thrombosis. 11.Gait dysfunction. 12.Change in mental status, metabolic encephalopathy, acute. 13.Possible diabetes mellitus, type 2, with elevated random blood sugars. 14.History of asthma, chronic obstructive pulmonary disease. 15.History of syncope. 16.History of pacemaker. 17.Anxiety, depression. RECOMMENDATIONS AND DISCUSSION: In this 84-year-old gentleman who presented with multiple complex medical issues, we will monitor the patient closely, continue the current medications, continue symptomatic treatment. As mentioned earlier, patient had recent episode of pulmonary embolism and was in rehab. Currently the patient has some shortness of breath. The NT- proBNP on admission was 18,800. I would recommend a small dose of diuretics cautiously and monitor the fluid/electrolyte balance as well as hemodynamic parameters and electrolytes. Otherwise, continue the bronchodilators. Continue the rest of the medications. Guarded prognosis because of multiple complex medical issues. Further recommendations to follow. We will monitor along with PT/OT and public health social worker also. See orders for further details. Continue the antibiotics. MMODL / IJN: [id number] /
[2019-06-16] MEDS: SODIUM CHLORIDE 0.9% 1,000 ML IV SCH (16:40)
[2019-06-16 17:34] LABS: Glucose,Whole Blood 125 mg/dL (75-99)
[2019-06-16 20:19] LABS: Glucose,Whole Blood 118 mg/dL (75-99)
[2019-06-16] MEDS: FUROSEMIDE 10 MG/ML 2 ML VIAL IV SCH (20:23)
[2019-06-16] MEDS: MONTELUKAST 10 MG TAB PO SCH (20:26)
[2019-06-16] MEDS: FAMOTIDINE 20 MG TAB PO SCH (20:26)
[2019-06-16] MEDS: LATANOPROST 0.005% OPHTH DROPS 2.5 ML BTL BOTH EYES SCH (20:27)
[2019-06-17] MEDS: SPIRONOLACTONE 25 MG TAB PO SCH (06:13)
[2019-06-17] MEDS: LOSARTAN 50 MG TAB PO SCH (06:13)
[2019-06-17] MEDS: LABETALOL 100 MG TAB PO SCH ×2 (06:13→20:17)
[2019-06-17 06:14] LABS: Glucose,Whole Blood 109 mg/dL (75-99)
[2019-06-17] MEDS: INSULIN ASPART (NovoLOG) 100 UNIT/ML VIAL SQ SCH ×4 (06:14→20:50)
[2019-06-17] MEDS: IPRATROPIUM-ALBUTEROL 3 ML NEB INHALATION SCH ×4 (06:48→19:10)
[2019-06-17] MEDS: BUDESONIDE 1 MG/2 ML NEBU INHALATION SCH ×2 (06:48→19:10)
[2019-06-17 06:50] LABS: HGB 12.2 gm/dL (13.0-17.5); MCH 28.5 pg (25.0-35.0); MCHC 31.3 g/dL (31.0-37.0); MCV 91.1 fL (80.0-100.0); Mean Platelet Volume 7.2; Platelet Count 256 k/uL (150-450); RBC 4.28 m/uL (4.30-5.90); RDW 15.4 % (11.5-15.5); WBC 8.9 k/uL (3.8-10.6)
[2019-06-17 07:03] LABS: African American GFR (CKD) >90 (>60 ml/min/1.73 sqM); Anion Gap 7 mmol/L; Blood Urea Nitrogen 32 mg/dL (9-20); Carbon Dioxide 32 mmol/L (22-30); Chloride 95 mmol/L (98-107); Glucose 112 mg/dL (74-99); Non-African American GFR(CKD) 81 (>60 ml/min/1.73 sqM); Potassium 4.3 mmol/L (3.5-5.1); Sodium 134 mmol/L (137-145)
[2019-06-17] MEDS: FORMOTEROL FUMARATE 20 MCG/2 ML NEBU INHALATION SCH ×2 (07:06→19:10)
[2019-06-17] MEDS: DORZOLAMIDE HCL 2% DROPS 10 ML BTL BOTH EYES SCH ×2 (10:15→20:19)
[2019-06-17] MEDS: APIXABAN 5 MG TAB PO SCH ×2 (10:15→20:17)
[2019-06-17] MEDS: FAMOTIDINE 20 MG TAB PO SCH ×2 (10:16→20:17)
[2019-06-17] MEDS: methylPREDNISolone SOD SUCCI 40 MG/ML 1 ML VIAL IV SCH ×2 (10:40→15:27)
[2019-06-17] MEDS: FUROSEMIDE 10 MG/ML 2 ML VIAL IV SCH (10:40)
[2019-06-17] MEDS: NITROGLYCERIN 0.2MG/HR PATCH TRANSDERM SCH (10:41)
[2019-06-17] MEDS: TIMOLOL 0.5% OPHTH DROPS 5 ML BTL BOTH EYES SCH ×2 (10:54→20:20)
[2019-06-17 11:58] LABS: Glucose,Whole Blood 108 mg/dL (75-99)
[2019-06-17 15:09] VITALS: BMI 24.5
[2019-06-17] MEDS: LEVOFLOXACIN 500 MG TAB PO SCH (15:27)
[2019-06-17] MEDS: SODIUM CHLORIDE 0.9% 1,000 ML IV SCH (15:30)
--- NOTE | 2019-06-17 16:09 | P.PN ---
Subjective Progress Note Date: 06/17/19 On today's evaluation of 06/17/2019 on seeing the patient on the medical floor. He is done extremely well. He is even off the oxygen currently. Is ambulating. He is using incentive spirometer. No significant sputum production. No fever. No chills. No chest pain or angina. His tolerating his diet and he is on limited IV fluids at 20 mL an hour. He remains on bronchodilators. He remains on IV Solu-Medrol at a dose of 40 mg every 8 hours. He is receiving DuoNeb nebulized treatments around the clock. He is also on a combination of Perforomist and Pulmicort nebulized she minutes twice a day. He is in a paced cardiac rhythm for now. Is covered with Levaquin as an empiric antibiotic coverage. He is receiving Lasix 20 mg IV push every 12 hours. As lost weight and he is down to 71 pounds. He has been in a negative fluid balance while being on diuretics. The Tang catheter has been removed. Objective - Vital Signs Vital signs: Vital Signs Temp 97.6 F 06/17/19 12:00 Pulse 79 06/17/19 15:29 Resp 18 06/17/19 12:00 BP 131/72 06/17/19 12:00 Pulse Ox 93 L 06/17/19 15:16 Intake & Output 06/16/19 06/17/19 06/17/19 18:59 06:59 18:59 Intake Total 580 160 490 Output Total 820 1530 Balance -240 -1370 490 Weight 71.1 kg 71.1 kg Intake: IV 200 160 20 Invasive Line 4 20 Sodium Chloride 0.9% 1, 200 160 000 ml @ 20 mls/hr IV . Q24H [facility] Rx#:[id number] Oral 380 470 Output: Urine 820 1530 Other: Voiding Method Indwelling Catheter Indwelling Catheter Indwelling Catheter - Exam calm comfortable likely distress Head exam was generally normal. There was no scleral icterus or corneal arcus. Mucous membranes were moist. The patient is tiny sore over the nose bridge at the site of a BiPAP mask irritation Neck was supple and without jugular venous distension, thyromegaly, or carotid bruits. Carotids were easily palpable bilaterally. There was no adenopathy. Lungs sounds are diminished otherwise symmetrical. There is scattered expiratory rhonchi heard throughout the lung his bilaterally. Cardiac exam revealed the PMI to be normally situated and sized. The rhythm was regular and no extrasystoles were noted during several minutes of auscultation. The first and second heart sounds were normal and physiologic splitting of the second heart sound was noted. There were no murmurs, rubs, clicks, or gallops. Abdominal exam revealed normal bowel sounds. The abdomen was soft, non-tender, and without masses, organomegaly, or appreciable enlargement of the abdominal aorta. Examination of the extremities revealed easily palpable radial, femoral and pedal pulses. There was no cyanosis, clubbing or edema. Examination of the skin revealed no evidence of significant rashes, suspicious a ppearing nevi or other concerning lesions. Neurologic awake and alert there is some motor weakness bilaterally the patient is emanating with the help of a walker. - Labs CBC & Chem 7: 06/17/19 05:54 06/17/19 05:54 Labs: Abnormal Lab Results - Last 24 Hours (Table) 06/16/19 06/16/19 06/17/19 Range/Units 17:32 20:17 05:54 RBC 4.28 L (4.30-5.90) m/uL Hgb 12.2 L (13.0-17.5) gm/dL Sodium (137-145) mmol/L Chloride (98-107) mmol/L Carbon Dioxide (22-30) mmol/L BUN (9-20) mg/dL Glucose (74-99) mg/dL POC Glucose (mg/dL) 125 H 118 H (75-99) mg/dL Calcium (8.4-10.2) mg/dL 06/17/19 06/17/19 06/17/19 Range/Units 05:54 06:13 11:56 RBC (4.30-5.90) m/uL Hgb (13.0-17.5) gm/dL Sodium 134 L (137-145) mmol/L Chloride 95 L (98-107) mmol/L Carbon Dioxide 32 H (22-30) mmol/L BUN 32 H (9-20) mg/dL Glucose 112 H (74-99) mg/dL POC Glucose (mg/dL) 109 H 108 H (75-99) mg/dL Calcium 8.0 L (8.4-10.2) mg/dL Assessment and Plan Plan: 1 Acute hypoxic/hypercapnic respiratory failure secondary to a left lower lobe infiltrate possible community-acquired pneumonia, acute exacerbation of systolic congestive heart failure and acute exacerbation of COPD. The patient is clinically improved. Patient has recovered significantly has been treated for COPD and CHF exacerbation currently is on room air oxygen. He has developed some motor weakness during the course of his hospitalization and the patient would benefit from rehabilitation. He has been diuresed adequately and he has lost considerable amount of weight while being on IV Lasix. He is also on IV Solu-Medrol. History receiving bronchodilators around the clock. 2 History of non-small cell lung cancer with previous right lower lobe resection. The patient has a tiny right lower nodule measuring 7 mm in size peripherally based on the most recent CAT scan of the chest. He also has a small left-sided pleural effusion. 3 Hypertension 4 Hyperlipidemia 5 Permanent pacemaker implantation 6 History of prostate cancer status post prostatectomy 7 History of previous tobacco dependence 8 cardiomyopathy with an ejection fraction of 20-25% and the patient has a paced rhythm Plan Switch this patient to oral prednisone 40 mg to be taken by 10 mg every 4 days and this continued IV Solu-Medrol Switch this patient oral Lasix 40 mg by mouth daily Continue bronchodilators [id number] Aggressive physical therapy Possible discharge to rehabilitation with the next 24-48 hours. Using incentive spirometer Much improved in terms of his overall condition Cardiac exam showed severely impaired LV function with an ejection fraction of 20-25%. No significant valvular abnormality. His cardiac rhythm is paced.
[2019-06-17 17:13] LABS: Glucose,Whole Blood 112 mg/dL (75-99)
[2019-06-17] MEDS: FUROSEMIDE 40 MG TAB PO SCH (17:39)
[2019-06-17] MEDS: predniSONE 20 MG TAB PO SCH (17:39)
[2019-06-17] MEDS: MONTELUKAST 10 MG TAB PO SCH (20:17)
[2019-06-17] MEDS: PRAVASTATIN SODIUM 80 MG TAB PO SCH (20:17)
[2019-06-17] MEDS: LATANOPROST 0.005% OPHTH DROPS 2.5 ML BTL BOTH EYES SCH (20:19)
[2019-06-17 20:48] LABS: Glucose,Whole Blood 200 mg/dL (75-99)
--- NOTE | 2019-06-17 21:53 | P.PN ---
Subjective Progress Note Date: 06/17/19 Principal diagnosis: Acute COPD exacerbation Acute on chronic CHF with systolic dysfunction this is a pleasant 84 years old male with past medical history of lung and prostate cancer, COPD, deep venous thrombosis, hyperlipidemia, hypertension, and small lung cancer status post right lower lobe resection, prostatectomy, history of pacemaker Originally patient was admitted electively [facility] for pulmonary embolism and from there he went to rehab before he was transferred to [facility] with a breathing difficulty. Patient was transferred from [facility], he was admitted there for over 3 days for possible pneumonia and COPD exacerbation and he was getting antibiotics, breathing treatments and steroids however he did not improve so [facility] and possible bronchoscopy as and his CAT scan of the chest to rule out PE which was negative shows right intra-abdominal secretions with 7 mm lesion noted in the right lower lobe bronchi Labs from [place] noted including sodium 1:30, potassium 4.6, creatinine 0.9, WBC 7.19, hemoglobin 10.8, platelets 262. Chest x-ray: Possible retrocardiac infiltrate per radiologist CT of the chest to rule out PE left pleural effusion, small 1 no pneumothorax soft tissue density inside the bronchi on the right lower lobe cannot exclude secretion or endo-bronchial lesion maximum diameter of 7 mm. Air bronchograms of the posterior portion of the left lung base committing airspace disease 06/12/2019 Patient got into respiratory distress in the morning and he was transferred to the ICU he was placed on BiPAP since then. His potassium was high, at 6.2, he presented protocol and his potassium came down to 4.7, blood pressure was high initially as per staff his systolic more than 118, however came down later on with systolic been in 60s and 70s. Patient received IV fluid, currently his blood pressure is 112/60. Patient currently on Levaquin and Eliquis, steroids just not been given because of his sensitivity. 06/13/2019 Patient remains in the ICU, he is dependent on BiPAP for breathing, although he is awake and alert however pulmonary/critical care team are following the patient closely. His breathing rate at 26 currently, blood pressure is 145/82. Labs reviewed in the looks stable however sugar on the low side couple times, we going to change his normal saline to D5 normal saline at 75 mL/h. Discussed with family at bedside about his compromised respiratory condition, and taken to discuss it further with pulmonary team as they mentioned hospice care as well 06/14/2019 Patient ICU, he still on BiPAP machine, pulmonary/critical care team are following the patient closely. Patient will also show a blood pressure 152/96, oxygen saturation 97% and heart rate is about 80 with a breathing rate about 15. CBC looks his stable with WBC coming down to 4.1K, hemoglobin 11.3. BMP is unremarkable with sodium 136, creatinine 0.9, sugar is running in 90s-117. Liver enzymes mildly elevated. Magnesium 2.0. Repeat chest x-ray showing no significant change from today.. He remains on Levaquin for now On 06/17/2019 Patient is currently sitting in the chair comfortably. Oxygen is being tapered down to room air. Patient has been afebrile. No complains of chest pain or worsening shortness of breath. IV Lasix changed to by mouth 40 mg daily. Continued on antibiotics the form of Levaquin and DuoNeb's. Tolerating oral diet slowly. Tang catheter has been discontinued. Pulmonary is on board. Active Medications Albuterol/Ipratropium (Duoneb 0.5 Mg-3 Mg/3 Ml Soln) 3 ml INHALATION RT-QID PRN PRN Reason: Shortness Of Breath Last Admin: 06/13/19 23:23 Dose: 3 ml Documented by: Albuterol/Ipratropium (Duoneb 0.5 Mg-3 Mg/3 Ml Soln) 3 ml INHALATION RT-QID [facility] Last Admin: 06/17/19 19:10 Dose: 3 ml Documented by: Apixaban (Eliquis) 5 mg PO BID [facility] Last Admin: 06/17/19 20:17 Dose: 5 mg Documented by: Budesonide (Pulmicort) 1 mg INHALATION RT-BID [facility] Last Admin: 06/17/19 19:10 Dose: 1 mg Documented by: Dorzolamide HCl (Trusopt) 1 drops BOTH EYES BID [facility] Last Admin: 06/17/19 20:19 Dose: 1 drops Documented by: Famotidine (Pepcid) 20 mg PO BID [facility] Last Admin: 06/17/19 20:17 Dose: 20 mg Documented by: Formoterol Fumarate (Perforomist) 20 mcg INHALATION RT-BID [facility] Last Admin: 06/17/19 19:10 Dose: 20 mcg Documented by: Furosemide (Lasix) 40 mg PO DAILY [facility] Last Admin: 06/17/19 17:39 Dose: 40 mg Documented by: Guaifenesin (Robitussin) 200 mg PO Q4H PRN PRN Reason: Cough Sodium Chloride (Saline 0.9%) 1,000 mls @ 20 mls/hr IV .Q24H [facility] Last Admin: 06/17/19 15:30 Dose: 20 mls/hr Documented by: Insulin Aspart (Novolog) 0 unit SQ ACHS [facility]; Protocol Last Admin: 06/17/19 20:50 Dose: 5 unit Documented by: Labetalol HCl (Trandate) 100 mg PO DAILY@0700 [facility] Last Admin: 06/17/19 06:13 Dose: 100 mg Documented by: Labetalol HCl (Trandate) 50 mg PO DAILY@2100 [facility] Last Admin: 06/17/19 20:17 Dose: 50 mg Documented by: Latanoprost (Xalatan 0.005%) 1 drops BOTH EYES HS@2099 [facility] Last Admin: 06/17/19 20:19 Dose: 1 drops Documented by: Levofloxacin (Levaquin) 500 mg PO 1500 [facility] Last Admin: 06/17/19 15:27 Dose: 500 mg Documented by: Losartan Potassium (Cozaar) 50 mg PO DAILY@0700 [facility] Last Admin: 06/17/19 06:13 Dose: 50 mg Documented by: Montelukast Sodium (Singulair) 10 mg PO HS@2100 [facility] Last Admin: 06/17/19 20:17 Dose: 10 mg Documented by: Morphine Sulfate (Morphine Sulfate (Inj)) 4 mg IVP Q4HR PRN PRN Reason: Pain Naloxone HCl (Narcan) 0.2 mg IV Q2M PRN PRN Reason: Opioid Reversal Nitroglycerin (Nitro-Dur 0.2mg/Hr Patch) 1 patch TRANSDERM DAILY [facility] Last Admin: 06/17/19 10:41 Dose: 1 patch Documented by: Pravastatin Sodium (Pravachol) 80 mg PO MOWEFR@2100 [facility] Last Admin: 06/17/19 20:17 Dose: 80 mg Documented by: Prednisone () 40 mg PO DAILY [facility] Last Admin: 06/17/19 17:39 Dose: 40 mg Documented by: Sodium Chloride (Deep Sea) 1 spray NASAL QID PRN PRN Reason: Dry Nasal Passages Spironolactone (Aldactone) 25 mg PO DAILY@0700 [facility] Last Admin: 06/17/19 06:13 Dose: 25 mg Documented by: Timolol Maleate (Timoptic) 1 drops BOTH EYES BID [facility] Last Admin: 06/17/19 20:20 Dose: 1 drops Documented by: Objective - Vital Signs Vital signs: Vital Signs Temp 97.6 F 06/17/19 12:00 Pulse 70 06/17/19 12:00 Resp 18 06/17/19 12:00 BP 131/72 06/17/19 12:00 Pulse Ox 97 06/17/19 08:00 Intake & Output 06/16/19 06/17/19 06/17/19 18:59 06:59 18:59 Intake Total 580 160 490 Output Total 820 1530 Balance -240 -1370 490 Weight 71.1 kg 71.1 kg Intake: IV 200 160 20 Invasive Line 4 20 Sodium Chloride 0.9% 1, 200 160 000 ml @ 20 mls/hr IV . Q24H [facility] Rx#:[id number] Oral 380 470 Output: Urine 820 1530 Other: Voiding Method Indwelling Catheter Indwelling Catheter Indwelling Catheter - Exam PHYSICAL EXAMINATION: Patient is lying in the bed comfortably, no acute distress, awake alert and oriented.. HEENT: Normocephalic. Neck is supple. Pupils reactive. Nostrils clear. Oral cavity is moist. Ears reveal no drainage. Neck reveals no JVD, carotid bruits, or thyromegaly. CHEST EXAMINATION: Trachea is central. Symmetrical expansion. Bilateral scattered rhonchi and coarse breath sounds bibasilar. CARDIAC: Normal S1, S2 with no gallops. No murmurs ABDOMEN: Soft. Bowel sounds normal. No organomegaly. No abdominal bruits. Extremities: reveal no edema. No clubbing or cyanosis Neurologically awake, alert, oriented x2-3 with well-coordinated movements. No focal deficits noted Skin: No rash or skin lesions. Psychiatric: Coperative. Nonsuicidal Musculoskeletal: No joint swelling or deformity. Normal range of motion. - Labs CBC & Chem 7: 06/17/19 05:54 06/17/19 05:54 Labs: Abnormal Lab Results - Last 24 Hours (Table) 06/16/19 06/16/19 06/17/19 Range/Units 17:32 20:17 05:54 RBC 4.28 L (4.30-5.90) m/uL Hgb 12.2 L (13.0-17.5) gm/dL Sodium (137-145) mmol/L Chloride (98-107) mmol/L Carbon Dioxide (22-30) mmol/L BUN (9-20) mg/dL Glucose (74-99) mg/dL POC Glucose (mg/dL) 125 H 118 H (75-99) mg/dL Calcium (8.4-10.2) mg/dL 06/17/19 06/17/19 06/17/19 Range/Units 05:54 06:13 11:56 RBC (4.30-5.90) m/uL Hgb (13.0-17.5) gm/dL Sodium 134 L (137-145) mmol/L Chloride 95 L (98-107) mmol/L Carbon Dioxide 32 H (22-30) mmol/L BUN 32 H (9-20) mg/dL Glucose 112 H (74-99) mg/dL POC Glucose (mg/dL) 109 H 108 H (75-99) mg/dL Calcium 8.0 L (8.4-10.2) mg/dL Assessment and Plan Assessment: Shortness of breath multifactorial, possible COPD exacerbation, CHF exacerbation. Acute on chronic CHF with systolic dysfunction ejection fraction 20% Acute hypoxic respiratory failure requiring BiPAP. Currently on oxygen with another cannula. Committed acquired pneumonia Hyponatremia Hyperkalemia Non-small cell cancer with history of right lower lobe resection History of prostate cancer status post prostatectomy History of PE currently on Eliquis Hypertension Hyperlipidemia History of DVT Gait dysfunction Change in mental status possible acute metabolic encephalopathy Diabetes type 2 History of syncope History of pacemaker placement Previous history of smoking plan: Patient will be continued on DuoNeb's, IV steroids changed to prednisone by mouth, currently on antibiotics the form of levofloxacin. IV Lasix changed to by mouth. Continue with oxygen therapy. Continue with antibiotics for recent PE. Encourage oral intake and follow up closely. Further recommendations based on the clinical course. Pulmonary is on board. Time with Patient: Greater than 30
[2019-06-18] MEDS: IPRATROPIUM-ALBUTEROL 3 ML NEB INHALATION PRN (04:24)
[2019-06-18] MEDS: FORMOTEROL FUMARATE 20 MCG/2 ML NEBU INHALATION SCH ×2 (07:09→19:02)
[2019-06-18] MEDS: BUDESONIDE 1 MG/2 ML NEBU INHALATION SCH ×2 (07:09→19:02)
[2019-06-18] MEDS: IPRATROPIUM-ALBUTEROL 3 ML NEB INHALATION SCH ×4 (07:09→19:03)
[2019-06-18 07:19] LABS: Glucose,Whole Blood 99 mg/dL (75-99)
[2019-06-18] MEDS: INSULIN ASPART (NovoLOG) 100 UNIT/ML VIAL SQ SCH ×4 (07:25→21:29)
[2019-06-18] MEDS: LOSARTAN 50 MG TAB PO SCH (08:03)
[2019-06-18] MEDS: NITROGLYCERIN 0.2MG/HR PATCH TRANSDERM SCH (08:03)
[2019-06-18] MEDS: LABETALOL 100 MG TAB PO SCH ×2 (08:03→19:56)
[2019-06-18] MEDS: FAMOTIDINE 20 MG TAB PO SCH ×2 (08:03→19:56)
[2019-06-18] MEDS: SPIRONOLACTONE 25 MG TAB PO SCH (08:03)
[2019-06-18] MEDS: FUROSEMIDE 40 MG TAB PO SCH (08:03)
[2019-06-18] MEDS: APIXABAN 5 MG TAB PO SCH ×2 (08:03→19:56)
[2019-06-18] MEDS: predniSONE 20 MG TAB PO SCH (08:04)
[2019-06-18 09:37] LABS: Basophils % (A) 0 %; Eosinophils % (A) 0 %; HCT 40.3 % (39.0-53.0); HGB 12.6 gm/dL (13.0-17.5); Lymphocytes # (A) 0.7 k/uL (1.0-4.8); Lymphocytes % (A) 8 %; MCH 28.4 pg (25.0-35.0); MCHC 31.3 g/dL (31.0-37.0); MCV 90.8 fL (80.0-100.0); Monocytes # (A) 0.3 k/uL (0-1.0); Monocytes % (A) 4 %; Neutrophils # (A) 7.1 k/uL (1.3-7.7); Neutrophils % (A) 87 %; Platelet Count 271 k/uL (150-450); RBC 4.44 m/uL (4.30-5.90); RDW 15.3 % (11.5-15.5); WBC 8.2 k/uL (3.8-10.6)
[2019-06-18 09:51] LABS: Calcium 8.3 mg/dL (8.4-10.2); Potassium 3.7 mmol/L (3.5-5.1)
--- NOTE | 2019-06-18 10:07 | P.PN ---
Subjective this is a pleasant 84 years old male with past medical history of lung and prostate cancer, COPD, deep venous thrombosis, hyperlipidemia, hypertension, and small lung cancer status post right lower lobe resection, prostatectomy, history of pacemaker Originally patient was admitted electively [facility] for pulmonary embolism and from there he went to rehab before he was transferred to [facility] with a breathing difficulty. Patient was transferred from [facility], he was admitted there for over 3 days for possible pneumonia and COPD exacerbation and he was getting antibiotics, breathing treatments and steroids however he did not improve so decided to transfer him to [facility] for pulmonary evaluation and possible bronchoscopy as and his CAT scan of the chest to rule out PE which was negative shows right intra-abdominal secretions with 7 mm lesion noted in the right lower lobe bronchi Labs from [place] noted including sodium 1:30, potassium 4.6, creatinine 0.9, WBC 7.19, hemoglobin 10.8, platelets 262. Chest x-ray: Possible retrocardiac infiltrate per radiologist CT of the chest to rule out PE left pleural effusion, small 1 no pneumothorax soft tissue density inside the bronchi on the right lower lobe cannot exclude secretion or endo-bronchial lesion maximum diameter of 7 mm. Air bronchograms of the posterior portion of the left lung base committing airspace disease 06/12/2019 Patient got into respiratory distress in the morning and he was transferred to the ICU he was placed on BiPAP since then. His potassium was high, at 6.2, he presented protocol and his potassium came down to 4.7, blood pressure was high initially as per staff his systolic more than 118, however came down later on with systolic been in 60s and 70s. Patient received IV fluid, currently his blood pressure is 112/60. Patient currently on Levaquin and Eliquis, steroids just not been given because of his sensitivity. 06/13/2019 Patient remains in the ICU, he is dependent on BiPAP for breathing, although he is awake and alert however pulmonary/critical care team are following the patient closely. His breathing rate at 26 currently, blood pressure is 145/82. Labs reviewed in the looks stable however sugar on the low side couple times, we going to change his normal saline to D5 normal saline at 75 mL/h. Discussed with family at bedside about his compromised respiratory condition, and taken to discuss it further with pulmonary team as they mentioned hospice care as well 06/14/2019 Patient ICU, he still on BiPAP machine, pulmonary/critical care team are following the patient closely. Patient will also show a blood pressure 152/96, oxygen saturation 97% and heart rate is about 80 with a breathing rate about 15. CBC looks his stable with WBC coming down to 4.1K, hemoglobin 11.3. BMP is unremarkable with sodium 136, creatinine 0.9, sugar is running in 90s-117. Liver enzymes mildly elevated. Magnesium 2.0. Repeat chest x-ray showing no significant change from today.. He remains on Levaquin for now 02/14/2020 Patient could get out of the BiPAP eventually and currently saturating 96% on 4 L oxygen, pressor Vitas looks stable. Currently not showing normal W Welch 3.9K, hemoglobin is 12.2, electrode a normal, creatinine 0.8, sugar control. Patient remains on steroids, antibiotics and we'll keep monitoring in the ICU now. I spoke with the patient he does not want hospice right now but he will be interested with palliative concert after discharge Objective - Vital Signs Vital signs: Vital Signs Temp 97.5 F L 06/15/19 12:00 Pulse 86 06/15/19 15:35 Resp 20 06/15/19 15:00 BP 142/79 06/15/19 14:00 Pulse Ox 96 06/15/19 15:00 Intake & Output 06/14/19 06/15/19 06/15/19 18:59 06:59 18:59 Intake Total 1075 825 570 Output Total 2993 543 1515 Balance -1918 282 -945 Weight 75.8 kg Intake: IV 100 495 Dextrose 5%-0.9% NaCl 1, 495 000 ml @ 40 mls/hr IV . Q24H [facility] Rx#:[id number] Levofloxacin 500Mg-D5w 100 Pmx 500 mg In Dextrose/ Water 1 100ml.bag @ 100 mls/hr IVPB Q24H [facility] Rx#: [id number] Intake, IV Titration 975 825 75 Amount Dextrose 5%-0.9% NaCl 1, 900 825 75 000 ml @ 40 mls/hr IV . Q24H [facility] Rx#:[id number] Levofloxacin 500Mg-D5w 75 Pmx 500 mg In Dextrose/ Water 1 100ml.bag @ 100 mls/hr IVPB Q24H [facility] Rx#: [id number] Output: Urine 2644 890 1515 Other: Voiding Method Indwelling Catheter Indwelling Catheter Indwelling Catheter - Exam -GENERAL: The patient is alert and oriented x3, is on BiPAP . HEENT: Pupils are round and equally reacting to light. EOMI. No scleral icterus. No conjunctival pallor. Normocephalic, atraumatic. No pharyngeal erythema. No thyromegaly. CARDIOVASCULAR: S1 and S2 present. No murmurs, rubs, or gallops. -PULMONARY: Decreased breath sounds especially in the right side, harsh breath sounds bilaterally, scattered wheezing ABDOMEN: Soft, nontender, nondistended, normoactive bowel sounds. No palpable organomegaly. MUSCULOSKELETAL: No joint swelling or deformity. EXTREMITIES: No cyanosis, clubbing, or pedal edema. NEUROLOGICAL: Gross neurological examination did not reveal any focal deficits. SKIN: No rashes. No petechiae - Labs CBC & Chem 7: 06/15/19 08:19 06/15/19 08:19 Labs: Abnormal Lab Results - Last 24 Hours (Table) 06/14/19 06/15/19 06/15/19 Range/Units 23:56 08:19 08:19 Hgb 12.2 L (13.0-17.5) gm/dL MCHC 30.1 L (31.0-37.0) g/dL Lymphocytes # 0.5 L (1.0-4.8) k/uL Carbon Dioxide 32 H (22-30) mmol/L BUN 22 H (9-20) mg/dL Glucose 182 H (74-99) mg/dL POC Glucose (mg/dL) 150 H (75-99) mg/dL Calcium 7.8 L (8.4-10.2) mg/dL Delta Bilirubin 0.4 H (0.0-0.2) mg/dL ALT 78 H (4-49) U/L Total Protein 5.4 L (6.3-8.2) g/dL Albumin 2.6 L (3.5-5.0) g/dL 06/15/19 Range/Units 12:16 Hgb (13.0-17.5) gm/dL MCHC (31.0-37.0) g/dL Lymphocytes # (1.0-4.8) k/uL Carbon Dioxide (22-30) mmol/L BUN (9-20) mg/dL Glucose (74-99) mg/dL POC Glucose (mg/dL) 187 H (75-99) mg/dL Calcium (8.4-10.2) mg/dL Delta Bilirubin (0.0-0.2) mg/dL ALT (4-49) U/L Total Protein (6.3-8.2) g/dL Albumin (3.5-5.0) g/dL Assessment and Plan Assessment: Acute COPD exacerbation Community acquired pneumonia Hyponatremia, and hyperkalemia, improved Acute hypoxic respiratory failure, remains on BiPAP Non-small lung cancer status post right lower lobe resection History of prostate cancer status post prostatectomy pulmonary embolism on eliqius Hypertension Hyperlipidemia Deep venous thrombosis this is a pleasant 84 years old male who presents with pneumonia and COPD. Continue with antibiotics Levaquin. Continue with broncho-dilator and oxygen. Patient is followed closely by pulmonary service. Labs and medication were reviewed.. Continue same treatment. Continue with symptomatic treatment. Resume home medication. Monitor lytes and vitals. DVT and GI prophylaxis. Further recommendations of the clinical course of the patient DVT prophylaxis: Eliquis GI Prophylaxis: Pepcid Patient is DO NOT RESUSCITATE Prognosis is guarded Plan: GENERAL: The patient is alert and oriented x3, not in any acute distress. Well developed, well nourished. HEENT: Pupils are round and equally reacting to light. EOMI. No scleral icterus. No conjunctival pallor. Normocephalic, atraumatic. No pharyngeal erythema. No thyromegaly. CARDIOVASCULAR: S1 and S2 present. No murmurs, rubs, or gallops. -PULMONARY: Chest is clear to auscultation, harsh breath sounds bilaterally, scattered wheezing. Patient currently on BiPAP machine ABDOMEN: Soft, nontender, nondistended, normoactive bowel sounds. No palpable organomegaly. MUSCULOSKELETAL: No joint swelling or deformity. EXTREMITIES: No cyanosis, clubbing, or pedal edema. NEUROLOGICAL: Gross neurological examination did not reveal any focal deficits. SKIN: No rashes. No petechiae
[2019-06-18] MEDS: TIMOLOL 0.5% OPHTH DROPS 5 ML BTL BOTH EYES SCH ×2 (10:13→19:56)
[2019-06-18] MEDS: DORZOLAMIDE HCL 2% DROPS 10 ML BTL BOTH EYES SCH ×2 (10:13→19:56)
[2019-06-18 12:24] LABS: Glucose,Whole Blood 138 mg/dL (75-99)
--- NOTE | 2019-06-18 14:21 | P.PN ---
Subjective Progress Note Date: 06/18/19 On 06/18/2019 seeing patient for the follow-up. Doing well. Ambulating with the help of a walker. Discharge planning is in progress. No chest pain. No significant shortness of breath. Reports gradual improvement in his motor power. He is ambulating. His cardiac rhythm is paced. He is on Levaquin. He is also on Lasix. He is using incentive spirometer. He is eating well. Objective - Vital Signs Vital signs: Vital Signs Temp 96.8 F L 06/18/19 05:00 Pulse 84 06/18/19 11:09 Resp 20 06/18/19 05:00 BP 154/90 06/18/19 05:00 Pulse Ox 97 06/18/19 07:10 Intake & Output 06/17/19 06/18/19 06/18/19 18:59 06:59 18:59 Intake Total 900 150 Output Total 2500 1375 200 Balance -1600 -1225 -200 Weight 71.1 kg 70.987 kg Intake: IV 30 Invasive Line 4 30 Oral 870 150 Output: Urine 2500 1375 200 Uretheral (Tang) 2500 Other: Voiding Method Indwelling Catheter Urinal # Voids 1 2 2 # Bowel Movements 1 - Exam calm comfortable likely distress Head exam was generally normal. There was no scleral icterus or corneal arcus. Mucous membranes were moist. The patient is tiny sore over the nose bridge at the site of a BiPAP mask irritation Neck was supple and without jugular venous distension, thyromegaly, or carotid bruits. Carotids were easily palpable bilaterally. There was no adenopathy. Lungs sounds are diminished otherwise symmetrical. There is scattered expiratory rhonchi heard throughout the lung his bilaterally. Cardiac exam revealed the PMI to be normally situated and sized. The rhythm was regular and no extrasystoles were noted during several minutes of auscultation. The first and second heart sounds were normal and physiologic splitting of the second heart sound was noted. There were no murmurs, rubs, clicks, or gallops. Abdominal exam revealed normal bowel sounds. The abdomen was soft, non-tender, and without masses, organomegaly, or appreciable enlargement of the abdominal aorta. Examination of the extremities revealed easily palpable radial, femoral and pedal pulses. There was no cyanosis, clubbing or edema. Examination of the skin revealed no evidence of significant rashes, suspicious appearing nevi or other concerning lesions. Neurologic awake and alert there is some motor weakness bilaterally the patient is emanating with the help of a walker. - Labs CBC & Chem 7: 06/18/19 08:37 06/18/19 08:37 Labs: Abnormal Lab Results - Last 24 Hours (Table) 06/17/19 06/17/19 06/18/19 Range/Units 17:10 20:46 08:37 Hgb 12.6 L (13.0-17.5) gm/dL Lymphocytes # 0.7 L (1.0-4.8) k/uL Sodium (137-145) mmol/L Chloride (98-107) mmol/L Carbon Dioxide (22-30) mmol/L BUN (9-20) mg/dL Glucose (74-99) mg/dL POC Glucose (mg/dL) 112 H 200 H (75-99) mg/dL Calcium (8.4-10.2) mg/dL 06/18/19 06/18/19 Range/Units 08:37 12:23 Hgb (13.0-17.5) gm/dL Lymphocytes # (1.0-4.8) k/uL Sodium 134 L (137-145) mmol/L Chloride 92 L (98-107) mmol/L Carbon Dioxide 34 H (22-30) mmol/L BUN 35 H (9-20) mg/dL Glucose 132 H (74-99) mg/dL POC Glucose (mg/dL) 138 H (75-99) mg/dL Calcium 8.3 L (8.4-10.2) mg/dL Assessment and Plan Plan: 1 Acute hypoxic/hypercapnic respiratory failure secondary to a left lower lobe infiltrate possible community-acquired pneumonia, acute exacerbation of systolic congestive heart failure and acute exacerbation of COPD. The patient is clinically improved. Patient has recovered significantly has been treated for COPD and CHF exacerbation currently is on room air oxygen. He has developed some motor weakness during the course of his hospitalization and the patient would benefit from rehabilitation. He has been diuresed adequately and he has lost considerable amount of weight while being on IV Lasix. He is currently on a prednisone burst taper is also on oral Lasix. 2 History of non-small cell lung cancer with previous right lower lobe resection. The patient has a tiny right lower nodule measuring 7 mm in size peripherally based on the most recent CAT scan of the chest. He also has a small left-sided pleural effusion. 3 Hypertension 4 Hyperlipidemia 5 Permanent pacemaker implantation 6 History of prostate cancer status post prostatectomy 7 History of previous tobacco dependence 8 cardiomyopathy with an ejection fraction of 20-25% and the patient has a paced rhythm Plan Continue prednisone burst taper Continue oral Lasix Incentive spirometer Discharge by is in progress and the patient is being considered for discharge to [facility]
[2019-06-18] MEDS: LEVOFLOXACIN 500 MG TAB PO SCH (14:40)
[2019-06-18 17:18] LABS: Glucose,Whole Blood 119 mg/dL (75-99)
[2019-06-18] MEDS: SODIUM CHLORIDE 0.9% 1,000 ML IV SCH (17:21)
[2019-06-18] MEDS: MONTELUKAST 10 MG TAB PO SCH (19:56)
[2019-06-18] MEDS: LATANOPROST 0.005% OPHTH DROPS 2.5 ML BTL BOTH EYES SCH (19:57)
--- NOTE | 2019-06-18 20:14 | PN ---
PROGRESS NOTE DATE OF SERVICE: 06/18/2019 This 84-year-old gentleman who was admitted with shortness of breath which is possibly multifactorial, COPD as well as CHF, acute exacerbation, is being closely monitored at this time. The patient is still short of breath. The patient was just transferred from ICU to the floor. The most recent chest x-ray, which was personally reviewed by me, showed some increased bronchovascular markings on the bases and left side, also. No chest pain. No palpitations. No fever. PHYSICAL EXAMINATION: Alert and oriented x2. Pulse 72, blood pressure 137/73, respiration 18, temperature 98.3, pulse ox 96% on 2 L. HEENT: Conjunctivae normal. Oral mucosa moist. NECK: No jugular venous distention. No carotid bruit. No lymph node enlargement. CARDIOVASCULAR SYSTEM: S1, S2 muffled. RESPIRATORY SYSTEM: Breath sounds diminished at the bases. A few scattered rhonchi and crackles. ABDOMEN: Soft, non-tender. LEGS: No edema. No swelling. NERVOUS SYSTEM: No focal deficit. LABS: WBC 8.2, hemoglobin 12.6. Sodium 134, potassium 3.7. Glucose noted. ASSESSMENT: 1. Shortness of breath, possibly multifactorial, with possible COPD, acute exacerbation, as well as congestive heart failure, acute exacerbation, with acute on chronic systolic dysfunction, ejection fraction 20% to 25%, with acute hypoxic hypercarbic respiratory failure, status post BiPAP. 2. Community-acquired pneumonia, present on admission. 3. Hyponatremia. 4. Hyperkalemia. 5. Ryo-oxqhe-ewwv cancer, status post right lower lobe resection. 6. History of prostate cancer and prostatectomy. 7. History of pulmonary embolism, on Eliquis. 8. Hypertension. 9. Hyperlipidemia. 10.History of deep venous thrombosis. 11.History of gait dysfunction. 12.Change in mental status, metabolic encephalopathy, acute, multifactorial. 13.Possible diabetes mellitus, type 2, with elevated random blood sugar. 14.History of asthma, chronic obstructive pulmonary disease. 15.History of syncope. 16.History of pacemaker. 17.History of anxiety, depression. 18.NO CODE, NO CPR, NO VENT. RECOMMENDATIONS AND DISCUSSION: In this 84-year-old gentleman who presented with multiple complex medical issues, we will monitor the patient closely, continue the current medications, continue with symptomatic treatment. We will continue with diuretics, bronchodilators. PT/OT evaluation, possible ECF rehab. Otherwise, prognosis guarded because of multiple complex medical issues. Further recommendations to follow. MMODL / IJN: [id number] /
[2019-06-18 21:28] LABS: Glucose,Whole Blood 132 mg/dL (75-99)
[2019-06-18] MEDS: VIT A,C & E-LUTEIN-MINERALS 1 EACH TAB PO SCH (21:29)
[2019-06-19 02:33] LABS: Glucose,Whole Blood 100 mg/dL (75-99)
[2019-06-19] MEDS: LOSARTAN 50 MG TAB PO SCH (06:10)
[2019-06-19] MEDS: SPIRONOLACTONE 25 MG TAB PO SCH (06:10)
[2019-06-19] MEDS ORDERED: MULTIVITAMINS, THERA 1 EACH TAB PO SCH (07:00)
[2019-06-19 07:19] LABS: Glucose,Whole Blood 89 mg/dL (75-99)
[2019-06-19] MEDS: FORMOTEROL FUMARATE 20 MCG/2 ML NEBU INHALATION SCH (07:42)
[2019-06-19] MEDS: IPRATROPIUM-ALBUTEROL 3 ML NEB INHALATION SCH ×2 (07:42→11:38)
[2019-06-19] MEDS: BUDESONIDE 1 MG/2 ML NEBU INHALATION SCH (07:42)
[2019-06-19] MEDS: INSULIN ASPART (NovoLOG) 100 UNIT/ML VIAL SQ SCH ×2 (07:44→12:47)
[2019-06-19] MEDS: VIT A,C & E-LUTEIN-MINERALS 1 EACH TAB PO SCH (09:00)
[2019-06-19] MEDS: LABETALOL 100 MG TAB PO SCH (09:00)
[2019-06-19] MEDS: FAMOTIDINE 20 MG TAB PO SCH (09:51)
[2019-06-19] MEDS: DORZOLAMIDE HCL 2% DROPS 10 ML BTL BOTH EYES SCH (09:51)
[2019-06-19] MEDS: APIXABAN 5 MG TAB PO SCH (09:51)
[2019-06-19] MEDS: FUROSEMIDE 40 MG TAB PO SCH (09:53)
[2019-06-19] MEDS: predniSONE 20 MG TAB PO SCH (09:55)
[2019-06-19] MEDS: TIMOLOL 0.5% OPHTH DROPS 5 ML BTL BOTH EYES SCH (10:01)
[2019-06-19] MEDS: NITROGLYCERIN 0.2MG/HR PATCH TRANSDERM SCH (10:33)
--- NOTE | 2019-06-19 10:46 | P.PN ---
Subjective Progress Note Date: 06/19/19 On 06/19/2019 on seeing the patient for a follow-up. The patient is currently moving with the help of a walker. Is trying to increase his level of activity as tolerated. He is weak however is gradually improving. He is utilizing incentive spirometer. He is eating well. No fever. No chills. No chest pain. He has cardiomyopathy with impaired LV function. No signs of any congestion heart failure. His cardiac rhythm is paced. The plan is to send in to rehabilitation somewhere in the area of [place], [place]. Objective - Vital Signs Vital signs: Vital Signs Temp 97.8 F 06/19/19 06:57 Pulse 72 06/19/19 08:02 Resp 16 06/19/19 08:02 BP 148/78 06/19/19 06:57 Pulse Ox 99 06/19/19 07:42 Intake & Output 06/18/19 06/19/19 06/19/19 18:59 06:59 18:59 Intake Total 200 400 Output Total 200 800 Balance 0 -800 400 Intake: Oral 200 400 Output: Urine 200 800 Other: Voiding Method Urinal Urinal # Voids 2 - Exam calm comfortable likely distress Head exam was generally normal. There was no scleral icterus or corneal arcus. Mucous membranes were moist. The patient is tiny sore over the nose bridge at the site of a BiPAP mask irritation Neck was supple and without jugular venous distension, thyromegaly, or carotid bruits. Carotids were easily palpable bilaterally. There was no adenopathy. Lungs sounds are diminished otherwise symmetrical. There is scattered expiratory rhonchi heard throughout the lung his bilaterally. Cardiac exam revealed the PMI to be normally situated and sized. The rhythm was regular and no extrasystoles were noted during several minutes of auscultation. The first and second heart sounds were normal and physiologic splitting of the second heart sound was noted. There were no murmurs, rubs, clicks, or gallops. Abdominal exam revealed normal bowel sounds. The abdomen was soft, non-tender, and without masses, organomegaly, or appreciable enlargement of the abdominal aorta. Examination of the extremities revealed easily palpable radial, femoral and pedal pulses. There was no cyanosis, clubbing or edema. Examination of the skin revealed no evidence of significant rashes, suspicious appearing nevi or other concerning lesions. Neurologic awake and alert there is some motor weakness bilaterally the patient is emanating with the help of a walker. - Labs CBC & Chem 7: 06/18/19 08:37 06/18/19 08:37 Labs: Abnormal Lab Results - Last 24 Hours (Table) 06/18/19 06/18/19 06/18/19 Range/Units 12:23 17:11 21:26 POC Glucose (mg/dL) 138 H 119 H 132 H (75-99) mg/dL 06/19/19 Range/Units 02:31 POC Glucose (mg/dL) 100 H (75-99) mg/dL Assessment and Plan Plan: 1 Acute hypoxic/hypercapnic respiratory failure secondary to a left lower lobe infiltrate possible community-acquired pneumonia, acute exacerbation of systolic congestive heart failure and acute exacerbation of COPD. The patient is clinically improved. 2 History of non-small cell lung cancer with previous right lower lobe resection. The patient has a tiny right lower nodule measuring 7 mm in size peripherally based on the most recent CAT scan of the chest. He also has a small left-sided pleural effusion. 3 Hypertension 4 Hyperlipidemia 5 Permanent pacemaker implantation 6 History of prostate cancer status post prostatectomy 7 History of previous tobacco dependence 8 cardiomyopathy with an ejection fraction of 20-25% and the patient has a paced rhythm Plan Continue prednisone burst taper Continue oral Lasix Incentive spirometer Discharge by is in progress and the patient is being considered for discharge to [facility]
--- NOTE | 2019-06-19 11:14 | P.DS ---
Providers Date of admission: 06/11/19 12:54 Expected date of discharge: 06/19/19 Attending physician: Tesfaye Garduno MD Consults: 06/11/19 14:12 Consult Physician Urgent Consulting Provider: Ventura Palacio Consult Reason/Comments: continous dyspnea despite therapy Do you want consulting provider notified?: Yes Placement Type Exists?: Yes Primary care physician: Nikhil Alberts Hospital Course: Final diagnosis Shortness of breath, possibly multi-factorial, with possible COPD, acute exacerbation, as well as congestive heart failure, acute exacerbation with acute on chronic systolic dysfunction, ejection fraction 20-25%, with acute hypoxic hypercarbic respiratory failure, status post BiPAP Community-acquired pneumonia, present on admission Hyponatremia Hyperkalemia Non-small cell cancer, status post right lower lobe resection History of prostate cancer and prostatectomy History of pulmonary embolism Hypertension Hyperlipidemia History of deep vein thrombosis History of gait dysfunction Change in mental status, metabolic encephalopathy, acute, multifactorial Possible diabetes mellitus type 2, with elevated random blood sugars History of asthma, chronic obstructive pulmonary disease History of syncope History of pacemaker History of anxiety, depression No code, no CPR, no vent Discharge disposition Patient is being discharged in a stable condition with guarded prognosis to sanctuary at [facility] in [place]. Patient will continue on a short course of oral antibiotics in the form of Levaquin for the next 5 days and then may discontinue. Patient will also continue on a prednisone taper until finished. Total time taken is 35 minutes. History of present illness This is an 84-year-old male who was recently admitted with shortness of breath which is possibly multifactorial, COPD as well as CHF, acute exacerbation and was being closely monitored. Patient was in ICU for a brief period due to shortness of breath. Currently patient is saturating well on 3 L of oxygen and will continue at this time. Patient states that he feels better and would like to go today. Patient will be going to an [facility] for continued PT/OT therapy. Patient will continue on oxygen therapy along with bronchodilators and oral antibiotics in the form of Levaquin for the next 5 days. Patient will also be continuing on a prednisone taper in the outpatient setting. Patient will continue with oral Lasix and will need repeat labs to monitor creatinine in the next couple of days. Patient should continue with blood sugar checks before meals at bedtime and treat with sliding scale accordingly. Currently patient denies any chest pain, worsening shortness of breath, or palpitations. Patient is afebrile. Patient denies any nausea or vomiting and has been tolerating diet. Patient states he is urinating with no difficulties or dysuria noted. Guarded prognosis. On exam vital signs are stable. Temp is 97.8F, pulse is 56, respirations are 16, blood pressure is 148/78, oxygen saturation is 97% on 3 L via nasal cannula. Cardio S1, S2 are muffled. Respiratory shows diminished breath sounds at the bases with a few scattered rhonchi noted in the bases. Abdomen is soft, thin, nontender. Nervous system shows mild diffuse weakness. Please refer to medication reconciliation sheet for a list of medications. Patient Condition at Discharge: Stable Plan - Discharge Summary Discharge Rx Participant: No New Discharge Prescriptions: New Sodium Chloride 0.65% Nasal [Deep Sea (Saline)] 1 spray NASAL QID PRN spray PRN Reason: Dry Nasal Passages Furosemide [Lasix] 40 mg PO DAILY tab Levofloxacin [Levaquin] 500 mg PO 1500 5 Days #5 tab Nitroglycerin 0.2MG/Hr Patch [Nitro-Dur 0.2MG/Hr Patch] 1 patch TRANSDERM DAILY patch INSULIN ASPART (NovoLOG) [NovoLOG (formulary)] 0 unit SQ ACHS vial Famotidine [Pepcid] 20 mg PO BID tab Continue Vit C/E/Zn/Coppr/Lutein/Zeaxan [Preservision Areds 2 Softgel] 1 cap PO BID@0700,2100 Multivitamins, Thera [Multivitamin (formulary)] 1 tab PO DAILY@0700 Latanoprost Ophth [Xalatan 0.005%] 1 drop BOTH EYES HS@2100 Dorzolamide HCl [Trusopt 2%] 1 drop BOTH EYES BID Pravastatin Sodium 80 mg PO MOWEFR@2100 Labetalol [Trandate] 50 mg PO DAILY@2100 Losartan [Cozaar] 50 mg PO DAILY@0700 Labetalol [Trandate] 100 mg PO DAILY@0700 Betaxolol HCl [Betoptic S 0.5% Ophth Soln] 1 drop BOTH EYES BID Fluticasone/Vilanterol [Breo Ellipta 100-25 Mcg Inhaler] 1 puff INHALATION RT-DAILY@0700 Apixaban [Eliquis] 5 mg PO BID@0700,1700 guaiFENesin [guaiFENesin Oral Solution] 200 mg PO Q4H PRN PRN Reason: Cough Ipratropium-Albuterol Nebulize [Duoneb 0.5 mg-3 mg/3 ml Soln] 3 ml INHALATION RT-QID Ipratropium-Albuterol Nebulize [Duoneb 0.5 mg-3 mg/3 ml Soln] 3 ml INHALATION RT-QID PRN PRN Reason: Shortness Of Breath Montelukast [Singulair] 10 mg PO HS@2099 Spironolactone 25 mg PO DAILY@07 Tiotropium Aurora [Spiriva Respimat] 2 puff INHALATION RT-DAILY@0700 Discontinued Furosemide [Lasix] 20 mg PO DAILY@0700 Discharge Medication List Dorzolamide HCl [Trusopt 2%] 1 drop BOTH EYES BID 03/01/17 [History] Labetalol [Trandate] 50 mg PO DAILY@209903/01/17 [History] Labetalol [Trandate] 100 mg PO DAILY@0703/01/17 [History] Latanoprost Ophth [Xalatan 0.005%] 1 drop BOTH EYES HS@209903/01/17 [History] Losartan [Cozaar] 50 mg PO DAILY@0703/01/17 [History] Multivitamins, Thera [Multivitamin (formulary)] 1 tab PO DAILY@0700 03/01/17 [History] Pravastatin Sodium 80 mg PO MOWEFR@209903/01/17 [History] Vit C/E/Zn/Coppr/Lutein/Zeaxan [Preservision Areds 2 Softgel] 1 cap PO BID@0700,209903/01/17 [History] Betaxolol HCl [Betoptic S 0.5% Ophth Soln] 1 drop BOTH EYES BID 03/31/19 [History] Fluticasone/Vilanterol [Breo Ellipta 100-25 Mcg Inhaler] 1 puff INHALATION RT-D AILY@0700 03/31/19 [History] Apixaban [Eliquis] 5 mg PO BID@0700,1700 06/11/19 [History] Ipratropium-Albuterol Nebulize [Duoneb 0.5 mg-3 mg/3 ml Soln] 3 ml INHALATION RT-QID 06/11/19 [History] Ipratropium-Albuterol Nebulize [Duoneb 0.5 mg-3 mg/3 ml Soln] 3 ml INHALATION RT-QID PRN 06/11/19 [History] Montelukast [Singulair] 10 mg PO HS@2100 06/11/19 [History] Spironolactone 25 mg PO DAILY@0700 06/11/19 [History] Tiotropium Aurora [Spiriva Respimat] 2 puff INHALATION RT-DAILY@0700 06/11/19 [History] guaiFENesin [guaiFENesin Oral Solution] 200 mg PO Q4H PRN 06/11/19 [History] Famotidine [Pepcid] 20 mg PO BID tab 06/19/19 [Rx] Furosemide [Lasix] 40 mg PO DAILY tab 06/19/19 [Rx] INSULIN ASPART (NovoLOG) [NovoLOG (formulary)] 0 unit SQ ACHS vial 06/19/19 [Rx] Levofloxacin [Levaquin] 500 mg PO 1500 5 Days #5 tab 06/19/19 [Rx] Nitroglycerin 0.2MG/Hr Patch [Nitro-Dur 0.2MG/Hr Patch] 1 patch TRANSDERM DAILY patch 06/19/19 [Rx] Sodium Chloride 0.65% Nasal [Deep Sea (Saline)] 1 spray NASAL QID PRN spray 06/19/19 [Rx] Ambulatory/Diagnostic Orders: Basic Metabolic Panel [LAB.AMB] Time Frame: 2 Days, Location: None Selected Activity/Diet/Wound Care/Special Instructions: bag of home meds in inpatient pharmacy Patient is going to sanctuary at [facility] in [place] Continue current diet Continue to monitor blood sugars before meals at bedtime and treat with sliding scale as accordingly Continue with antibiotics until finished Continue with prednisone taper Continue using incentive spirometer at least 10 times every hour while awake Discharge Disposition: TRANSFER TO SNF/ECF
[2019-06-19 11:48] VITALS: PULSE 74
[2019-06-19 12:10] VITALS: BP 154/83; RESP 18; TEMP 97.5
[2019-06-19 12:32] LABS: Glucose,Whole Blood 92 mg/dL (75-99)
[2019-06-19] MEDS: LEVOFLOXACIN 500 MG TAB PO SCH (14:08)
== END 2019-06-19 14:26 | DRG 291 ==
LOC: 5NMEDONC 12:54 → 2SICU 06-12 03:53 → 3SCARD 06-16 17:27 → 6NMEDSUR 06-17 23:31
PROVIDERS: ADMIT Internal Medicine; ATTEND Internal Medicine
PROC: 5A09457 Assistance with Respiratory Ventilation, 24-96 Consecutive Hours, Continuous Positive Airway Pressure (ICD-10-PCS; principal; 2019-06-12)
DX: I11.0 Hypertensive heart disease with heart failure (principal); J96.02 Acute respiratory failure with hypercapnia; J96.01 Acute respiratory failure with hypoxia; G93.41 Metabolic encephalopathy; J18.9 Pneumonia, unspecified organism; E87.1 Hypo-osmolality and hyponatremia; J44.0 Chronic obstructive pulmonary disease with (acute) lower respiratory infection; J44.1 Chronic obstructive pulmonary disease with (acute) exacerbation; C34.90 Malignant neoplasm of unspecified part of unspecified bronchus or lung; E78.5 Hyperlipidemia, unspecified; E87.5 Hyperkalemia; I50.23 Acute on chronic systolic (congestive) heart failure; F32.9 Major depressive disorder, single episode, unspecified; I34.0 Nonrheumatic mitral (valve) insufficiency; H54.8 Legal blindness, as defined in USA; I42.9 Cardiomyopathy, unspecified; R26.9 Unspecified abnormalities of gait and mobility; F41.9 Anxiety disorder, unspecified; Z66 Do not resuscitate; Z96.1 Presence of intraocular lens; Z88.8 Allergy status to other drugs, medicaments and biological substances; Z98.42 Cataract extraction status, left eye; Z98.41 Cataract extraction status, right eye; Z91.09 Other allergy status, other than to drugs and biological substances; Z79.01 Long term (current) use of anticoagulants; Z79.899 Other long term (current) drug therapy; Z82.49 Family history of ischemic heart disease and other diseases of the circulatory system; Z85.118 Personal history of other malignant neoplasm of bronchus and lung; Z85.46 Personal history of malignant neoplasm of prostate; Z86.711 Personal history of pulmonary embolism; Z86.718 Personal history of other venous thrombosis and embolism; Z87.891 Personal history of nicotine dependence; Z90.2 Acquired absence of lung [part of]; Z90.79 Acquired absence of other genital organ(s); Z95.0 Presence of cardiac pacemaker
CPT/HCPCS: 36600; 71045; 80048; 80053; 80076; 81003; 82805; 83605; 83735; 83880; 84132; 84145; 84484; 85025; 85027; 85379; 93005; 93017; 93306; 94640; 94660; 94760